=== PATIENT | male | born 1975 | race Caucasian/White ===

== ENCOUNTER 2016-08-11 16:59 | Emergency (ER) | payer OTHER ==
--- NOTE | 2016-08-11 17:24 | EDDOCDS ---
Nurse's Notes [facility] Name: Norbert Gutiérrez Age: 41 yrs Sex: Male : 1975 Arrival Date: 08/11/2016 Time: 16:59 Bed TR7 Private MD: No Pcp Diagnosis: Dysuria Presentation: 08/11 17:03 Presenting complaint: Patient states: Patient states that since yesterday it "turner js13 when I pee". Patient texting during triage. Adult Sepsis Screening: The patient does not have new or worsening altered mentation. Patient's respiratory rate is less than 22. Systolic blood pressure is greater than 100. Patient has a qSOFA score of 0- Negative Sepsis Screen. Suicide/Homicide risk assessment- the patient denies having any suicidal and/or homicidal ideations and does not present with any other emotional, behavioral or mental health complaints. Status: Patient is not a servicenow administrator or dependent. Transition of care: patient was not received from another setting of care. 17:03 Acuity: GERARD Level 4 js13 17:03 Method Of Arrival: Walkin/Carried/Asstd js13 Triage Assessment: 17:04 General: Appears in no apparent distress, Behavior is appropriate for age, cooperative. js13 Pain: Pain currently is 5 out of 10 on a pain scale. Pt Declines HIV testing. Neurological: Level of Consciousness is awake, alert. Respiratory: Airway is patent Respiratory effort is even, unlabored, Respiratory pattern is regular, symmetrical. : Reports burning with urination since 08/10. Derm: Skin is pink, warm & dry. Historical: - Allergies: PENICILLINS (Hives); - Home Meds: 1. none - PMHx: Diabetes - NIDDM: controlled; Sleep Apnea w/ CPAP; - PSHx: none; - Social history: Smoking status: Patient uses tobacco products, current every day smoker. No barriers to communication noted, The patient speaks fluent Greenlandic. - Family history: Not pertinent. - : The pt / caregiver states he / she is not on anticoagulants. Home medication list is obtained from the patient. - Exposure Risk Screening:: None identified. Screenin:05 Screening information is obtained from the patient. Fall risk: No risks identified. js13 Assistance ADL's: requires no assistance with activities of daily living. Abuse/DV Screen: The patient / caregiver reports he/she is: not in a situation that causes fear, pain or injury. Nutritional screening: No deficits noted. Advance Directives: There is no active DNR order. home support is adequate. Assessment: 17:22 General: Appears in no apparent distress. Neurological: Level of Consciousness is ld5 awake, alert. : Reports pain with urination. Vital Signs: 17:01 BP 134 / 79; Pulse 94; Resp 16; Temp 97.2(O); Pulse Ox 94% on R/A; Weight 74.84 kg; sew Height 5 ft. 5 in. (165.10 cm); Pain 5/10; 17:01 Body Mass Index 27.46 (74.84 kg, 165.10 cm) [facility] [place]: 17: Log In Time: August 11, 2016 at 16:56. [facility] [place] [place] Course: 17:00 Patient visited by Nanci Bradley. sew 17:00 Patient moved to Waiting sew 17:01 No Pcp is Private Physician. sew 17:02 Patient visited by Nanci Bradley. sew 17:02 Patient moved to Pre RCE sew 17:04 Triage Initiated js13 17:05 Patient visited by Juanita Verduzco RN. js13 17:05 The patient / caregiver is instructed regarding the plan of care and ED course. js13 17:05 No IV's were initiated during this patient's visit. No procedures done that require [facility] assistance. 17:06 Patient moved to Triage 1 js13 17:07 [facility] btw 17:07 Kristian Wood MD is Attending Physician. btw 17:07 Patient visited by Justin Jacobo PA. btw 17:16 GC & Chlamydia Amplification Sent. ld5 17:16 Urine Culture Sent. ld5 17:17 Urine collected. Clean catch specimen. Urine specimen sent to lab. ld5 17:21 Patient moved to TR7 ld5 17:23 Patient visited by Annmarie Putnam RN. ld5 Point of Care Testing: Urine Dip: 17:16 pH: 1.01; ; Specific [place]: 7; Ketones: Negative; Glucose: Negative; Protein: Trace; ld5 Leukocytes: Positive (++); Nitrite: Negative ; Blood: Non Hemolyzed Moderate; Bilirubin: Negative ; Urobilinogen: Normal Ranges: Order Results: There are currently no results for this order. Outcome: 17:16 Discharge ordered by Provider. btw 17:22 Discharge Assessment: Patient awake, alert and oriented x 3. No cognitive and/or ld5 functional deficits noted. Patient verbalized understanding of disposition instructions. patient administered narcotics - no. The following High Risk Discharge criteria are identified: None. Discharged to home ambulatory, with family. Condition: stable. Discharge instructions given to patient, Instructed on discharge instructions, follow up and referral plans. medication usage, Demonstrated understanding of instructions, medications, Pt was receptive of discharge instructions/ teaching. Prescriptions given X 1. No special radiology studies were completed. Property :Personal belongings accompany Pt. 17:23 Patient left the ED. ld5 Signatures: Justin Jacobo PA PA btw Annmarie Putnam,RN RN ld5 Juanita VerduzcoRN RN js13 Nanci Bradley NEREIDA
--- NOTE | 2016-08-11 17:24 | EDDOCDS ---
Physician Documentation [facility] Name: Norbert Gutiérrez Age: 41 yrs Sex: Male : 1975 Arrival Date: 08/11/2016 Time: 16:59 Bed TR7 Private MD: No Pcp Disposition: 08/11/16 17:16 Discharged to Home/Self Care. Impression: Dysuria. - Condition is Stable. - Discharge Instructions: Dysuria. - Prescriptions for Cipro 500 mg Oral Tablet - take 1 tablet by ORAL route every 12 hours; 14 tablet. - Medication Reconciliation, Local Pharmacy Hours form. - Follow up: Private Physician; When: Call to arrange an appointment; Reason: Further diagnostic work-up, Recheck today's complaints, Continuance of care. - Problem is new. - Symptoms are unchanged. Historical: - Allergies: PENICILLINS (Hives); - Home Meds: 1. none - PMHx: Diabetes - NIDDM: controlled; Sleep Apnea w/ CPAP; - PSHx: none; - Social history: Smoking status: Patient uses tobacco products, current every day smoker. No barriers to communication noted, The patient speaks fluent Estonian. - Family history: Not pertinent. - : The pt / caregiver states he / she is not on anticoagulants. Home medication list is obtained from the patient. - Exposure Risk Screening:: None identified. Vital Signs: 08/11 17:01 BP 134 / 79; Pulse 94; Resp 16; Temp 97.2(O); Pulse Ox 94% on R/A; Weight 74.84 kg / sew 164.99 lbs; Height 5 ft. 5 in. (165.10 cm); Pain 5/10; 17:01 Body Mass Index 27.46 (74.84 kg, 165.10 cm) sew MDM: 17:08 Urine Dip ordered. btw 17:09 GC & Chlamydia Amplification Ordered. EDMS 17:09 Urine Culture Ordered. EDDE Point of Care Testing: Urine Dip: 17:16 pH: 1.01; ; Specific [place]: 7; Ketones: Negative; Glucose: Negative; Protein: Trace; ld5 Leukocytes: Positive (++); Nitrite: Negative ; Blood: Non Hemolyzed Moderate; Bilirubin: Negative ; Urobilinogen: Normal Ranges: Signatures: Dispatcher [employer] EDDE Wolfenden, JustinROLANDO roa Laura,RN RN ld5 Juanita Verduzco,RN RN js13 MTDD
--- NOTE | 2016-08-15 09:30 | EDDOCDS ---
Physician Documentation [facility] Name: Norbert Gutiérrez Age: 41 yrs Sex: Male : 1975 Arrival Date: 08/11/2016 Time: 16:59 Bed TR7 Private MD: No Pcp Disposition: 08/11/16 17:16 Discharged to Home/Self Care. Impression: Dysuria. - Condition is Stable. - Discharge Instructions: Dysuria. - Prescriptions for Cipro 500 mg Oral Tablet - take 1 tablet by ORAL route every 12 hours; 14 tablet. - Medication Reconciliation, Local Pharmacy Hours form. - Follow up: Private Physician; When: Call to arrange an appointment; Reason: Further diagnostic work-up, Recheck today's complaints, Continuance of care. - Problem is new. - Symptoms are unchanged. Historical: - Allergies: PENICILLINS (Hives); - Home Meds: 1. none - PMHx: Diabetes - NIDDM: controlled; Sleep Apnea w/ CPAP; - PSHx: none; - Social history: Smoking status: Patient uses tobacco products, current every day smoker. No barriers to communication noted, The patient speaks fluent Beninese. - Family history: Not pertinent. - : The pt / caregiver states he / she is not on anticoagulants. Home medication list is obtained from the patient. - Exposure Risk Screening:: None identified. Vital Signs: 08/11 17:01 BP 134 / 79; Pulse 94; Resp 16; Temp 97.2(O); Pulse Ox 94% on R/A; Weight 74.84 kg / sew 164.99 lbs; Height 5 ft. 5 in. (165.10 cm); Pain 5/10; 17:01 Body Mass Index 27.46 (74.84 kg, 165.10 cm) sew MDM: 17:08 Urine Dip ordered. btw 17:09 GC & Chlamydia Amplification Ordered. EDMS 17:09 Urine Culture Ordered. EDMS 17:27 [facility] Payment Agreement was scanned into [employer] and attached to record. jp5 17:27 Financial registration complete. jp5 08/12 09:09 T-Sheet-- Draft Copy was scanned into [employer] and attached to record. [facility] Point of Care Testing: Urine Dip: 08/11 17:16 pH: 1.01; ; Specific [place]: 7; Ketones: Negative; Glucose: Negative; Protein: Trace; ld5 Leukocytes: Positive (++); Nitrite: Negative ; Blood: Non Hemolyzed Moderate; Bilirubin: Negative ; Urobilinogen: Normal Ranges: Signatures: Dispatcher [employer] Justin Cloud PA PA btw Dickerson, LauraRN RN ld5 Juanita VerduzcoRN RN js13 Sami Kent jp5 Nanci Flaherty The chart was reviewed and I authenticate all verbal orders and agree with the evaluation and treatment provided.Attachments: 17:27 [facility] Payment Agreement jp5 08/12 09:09 T-Sheet-- Draft Copy [facility] Chart Complete MTDD
--- NOTE | 2016-08-15 09:30 | EDDOCDS ---
Physician Documentation [facility] Name: Norbert Gutiérrez Age: 41 yrs Sex: Male : 1975 Arrival Date: 08/11/2016 Time: 16:59 Bed TR7 Private MD: No Pcp Disposition: 08/11/16 17:16 Discharged to Home/Self Care. Impression: Dysuria. - Condition is Stable. - Discharge Instructions: Dysuria. - Prescriptions for Cipro 500 mg Oral Tablet - take 1 tablet by ORAL route every 12 hours; 14 tablet. - Medication Reconciliation, Local Pharmacy Hours form. - Follow up: Private Physician; When: Call to arrange an appointment; Reason: Further diagnostic work-up, Recheck today's complaints, Continuance of care. - Problem is new. - Symptoms are unchanged. Historical: - Allergies: PENICILLINS (Hives); - Home Meds: 1. none - PMHx: Diabetes - NIDDM: controlled; Sleep Apnea w/ CPAP; - PSHx: none; - Social history: Smoking status: Patient uses tobacco products, current every day smoker. No barriers to communication noted, The patient speaks fluent Surinamese. - Family history: Not pertinent. - : The pt / caregiver states he / she is not on anticoagulants. Home medication list is obtained from the patient. - Exposure Risk Screening:: None identified. Vital Signs: 08/11 17:01 BP 134 / 79; Pulse 94; Resp 16; Temp 97.2(O); Pulse Ox 94% on R/A; Weight 74.84 kg / sew 164.99 lbs; Height 5 ft. 5 in. (165.10 cm); Pain 5/10; 17:01 Body Mass Index 27.46 (74.84 kg, 165.10 cm) sew MDM: 17:08 Urine Dip ordered. btw 17:09 GC & Chlamydia Amplification Ordered. EDMS 17:09 Urine Culture Ordered. EDMS 17:27 [facility] Payment Agreement was scanned into [employer] and attached to record. jp5 17:27 Financial registration complete. jp5 08/12 09:09 T-Sheet-- Draft Copy was scanned into [employer] and attached to record. [facility] Point of Care Testing: Urine Dip: 08/11 17:16 pH: 1.01; ; Specific [place]: 7; Ketones: Negative; Glucose: Negative; Protein: Trace; ld5 Leukocytes: Positive (++); Nitrite: Negative ; Blood: Non Hemolyzed Moderate; Bilirubin: Negative ; Urobilinogen: Normal Ranges: Signatures: Dispatcher [employer] Justin Cloud PA PA btw Dickerson, LauraRN RN ld5 Juanita VerduzcoRN RN js13 Sami Kent jp5 Nanci Flaherty The chart was reviewed and I authenticate all verbal orders and agree with the evaluation and treatment provided.Attachments: 17:27 [facility] Payment Agreement jp5 08/12 09:09 T-Sheet-- Draft Copy [facility] Chart Complete MTDD
--- NOTE | 2016-08-15 09:31 | EDDOCDS ---
Nurse's Notes [facility] Name: Norbert Gutiérrez Age: 41 yrs Sex: Male : 1975 Arrival Date: 08/11/2016 Time: 16:59 Bed TR7 Private MD: No Pcp Diagnosis: Dysuria Presentation: 08/11 17:03 Presenting complaint: Patient states: Patient states that since yesterday it "turner js13 when I pee". Patient texting during triage. Adult Sepsis Screening: The patient does not have new or worsening altered mentation. Patient's respiratory rate is less than 22. Systolic blood pressure is greater than 100. Patient has a qSOFA score of 0- Negative Sepsis Screen. Suicide/Homicide risk assessment- the patient denies having any suicidal and/or homicidal ideations and does not present with any other emotional, behavioral or mental health complaints. Status: Patient is not a quick service technician or dependent. Transition of care: patient was not received from another setting of care. 17:03 Acuity: GERARD Level 4 js13 17:03 Method Of Arrival: Walkin/Carried/Asstd js13 Triage Assessment: 17:04 General: Appears in no apparent distress, Behavior is appropriate for age, cooperative. js13 Pain: Pain currently is 5 out of 10 on a pain scale. Pt Declines HIV testing. Neurological: Level of Consciousness is awake, alert. Respiratory: Airway is patent Respiratory effort is even, unlabored, Respiratory pattern is regular, symmetrical. : Reports burning with urination since 08/10. Derm: Skin is pink, warm & dry. Historical: - Allergies: PENICILLINS (Hives); - Home Meds: 1. none - PMHx: Diabetes - NIDDM: controlled; Sleep Apnea w/ CPAP; - PSHx: none; - Social history: Smoking status: Patient uses tobacco products, current every day smoker. No barriers to communication noted, The patient speaks fluent Danish. - Family history: Not pertinent. - : The pt / caregiver states he / she is not on anticoagulants. Home medication list is obtained from the patient. - Exposure Risk Screening:: None identified. Screenin:05 Screening information is obtained from the patient. Fall risk: No risks identified. js13 Assistance ADL's: requires no assistance with activities of daily living. Abuse/DV Screen: The patient / caregiver reports he/she is: not in a situation that causes fear, pain or injury. Nutritional screening: No deficits noted. Advance Directives: There is no active DNR order. home support is adequate. Assessment: 17:22 General: Appears in no apparent distress. Neurological: Level of Consciousness is ld5 awake, alert. : Reports pain with urination. Vital Signs: 17:01 BP 134 / 79; Pulse 94; Resp 16; Temp 97.2(O); Pulse Ox 94% on R/A; Weight 74.84 kg; sew Height 5 ft. 5 in. (165.10 cm); Pain 5/10; 17:01 Body Mass Index 27.46 (74.84 kg, 165.10 cm) [facility] [place]: 17: Log In Time: August 11, 2016 at 16:56. [facility] [place] Course: 17:00 Patient visited by Nanci Bradley. sew 17:00 Patient moved to Waiting sew 17:01 No Pcp is Private Physician. sew 17:02 Patient visited by Nanci Bradley. sew 17:02 Patient moved to Pre RCE sew 17:04 Triage Initiated js13 17:05 Patient visited by Juanita Verduzco RN. js13 17:05 The patient / caregiver is instructed regarding the plan of care and ED course. js13 17:05 No IV's were initiated during this patient's visit. No procedures done that require [facility] assistance. 17:06 Patient moved to Triage 1 js13 17:07 Justin Jacobo PA is PHCP. btw 17:07 Kristian Wood MD is Attending Physician. btw 17:07 Patient visited by Justin Jacobo PA. btw 17:16 GC & Chlamydia Amplification Sent. ld5 17:16 Urine Culture Sent. ld5 17:17 Urine collected. Clean catch specimen. Urine specimen sent to lab. ld5 17:21 Patient moved to TR7 ld5 17:23 Patient visited by Annmarie Putnam RN. ld5 17:27 [facility] Payment Agreement was scanned into [employer] and attached to record. jp5 08/12 09:09 T-Sheet-- Draft Copy was scanned into [employer] and attached to record. [facility] Point of Care Testing: Urine Dip: 08/11 17:16 pH: 1.01; ; Specific [place]: 7; Ketones: Negative; Glucose: Negative; Protein: Trace; ld5 Leukocytes: Positive (++); Nitrite: Negative ; Blood: Non Hemolyzed Moderate; Bilirubin: Negative ; Urobilinogen: Normal Ranges: Order Results: Lab Order: Urine Culture; SPEC'M 08/11/16 17:10 Test: URINE CULTURE; Value: URINE CULTURE RESULT NO GROWTH; Status: F Lab Order: GC & Chlamydia Amplification; SPEC'M 08/11/16 17:10 Test: CHLAMYDIA DNA AMPLIFICATION; Value: NEGATIVE; Range: NEGATIVE; Status: F Test: GC DNA AMPLIFICATION; Value: NEGATIVE; Range: NEGATIVE; Status: F Outcome: 17:16 Discharge ordered by Provider. btw 17:22 Discharge Assessment: Patient awake, alert and oriented x 3. No cognitive and/or ld5 functional deficits noted. Patient verbalized understanding of disposition instructions. patient administered narcotics - no. The following High Risk Discharge criteria are identified: None. Discharged to home ambulatory, with family. Condition: stable. Discharge instructions given to patient, Instructed on discharge instructions, follow up and referral plans. medication usage, Demonstrated understanding of instructions, medications, Pt was receptive of discharge instructions/ teaching. Prescriptions given X 1. No special radiology studies were completed. Property :Personal belongings accompany Pt. 17:23 Patient left the ED. ld5 Signatures: Justin Jacobo PA PA btw Dickerson, Laura,RN RN ld5 Juanita VerduzcoRN RN js13 Kirk, Sami Ny Sarah seh Chart Complete MTDD
== END 2016-08-11 17:23 | disposition home or self-care (01) ==
LOC: M ED 16:59
DX: R30.0 Dysuria (principal); E11.9 Type 2 diabetes mellitus without complications; G47.30 Sleep apnea, unspecified; Z72.0 Tobacco use; Z88.0 Allergy status to penicillin

== ENCOUNTER 2016-08-22 20:52 | Emergency (ER) | payer OTHER ==
[2016-08-22] MEDS ORDERED: BACTRIM 160MG/800MG DS TAB As Ordered ONE (22:51)
--- NOTE | 2016-08-22 23:01 | EDDOCDS ---
Physician Documentation [facility] Name: Norbert Gutiérrez Age: 41 yrs Sex: Male : 1975 Arrival Date: 08/22/2016 Time: 20:52 Bed 13 Private MD: KARL MORRIS Disposition: 08/22/16 22:47 Discharged to Home/Self Care. Impression: Cutaneous abscess of right axilla. - Condition is Stable. - Discharge Instructions: Abscess. - Prescriptions for Bactrim DS 800- 160 mg Oral Tablet - take 2 tablet by ORAL route every 12 hours for 7 days; 28 tablet. - Medication Reconciliation, Local Pharmacy Hours form. - [facility]; When: Call to arrange an appointment; Reason: Continuance of care. - Problem is an ongoing problem. - Symptoms are unchanged. - Notes: warm compresses Historical: - Allergies: PENICILLINS (Hives); - Home Meds: 1. none - PMHx: Diabetes - NIDDM: controlled; Sleep Apnea w/ CPAP; - PSHx: none; - Social history: Smoking status: Patient uses tobacco products, heavy tobacco smoker. No barriers to communication noted, The patient speaks fluent Divehi, Speaks appropriately for age. - Family history: Not pertinent. - : The pt / caregiver states he / she is not on anticoagulants. Home medication list is obtained from the patient. - Exposure Risk Screening:: None identified. Vital Signs: 08/22 20:53 BP 159 / 85; Pulse 114; Resp 18 S; Temp 96.9(O); Pulse Ox 95% on R/A; Weight 88.45 kg / gr2 195 lbs (R); Height 5 ft. 5 in. (165.10 cm) (R); Pain 4/10; 22:59 BP 148 / 72; Pulse 78; Resp 20; Temp 97.2(O); Pulse Ox 96% on R/A; Pain 4/10; tm5 20:53 Body Mass Index 32.45 (88.45 kg, 165.10 cm) gr2 MDM: 22:43 Trimethoprim-Sulfamethoxazole (MRSA dose) 160 mg-800 mg (DS) 2 tabs PO once ordered. ke Administered Medications: 22:56 Drug: Trimethoprim-Sulfamethoxazole (MRSA dose) 2 tabs [sulfamethoxazole 800 tm5 mg-trimethoprim 160 mg tablet (2 tabs)] Route: PO; 22:56 Follow up: Response: Pt left department before re-evaluation is appropriate tm5 Signatures: Melo Mora, YARA RN Greg Betancourt FNP FNP ke Matice, Tonya, RN RN tm5 MTDD
--- NOTE | 2016-08-22 23:01 | EDDOCDS ---
Nurse's Notes [facility] Name: Norbert Gutiérrez Age: 41 yrs Sex: Male : 1975 Arrival Date: 08/22/2016 Time: 20:52 Bed 13 Private MD: KARL MORRIS Diagnosis: Cutaneous abscess of right axilla Presentation: 08/22 21:04 Presenting complaint: Patient states: he has bumps in his right axilla since last cz night. Adult Sepsis Screening: The patient does not have new or worsening altered mentation. Patient's respiratory rate is less than 22. Systolic blood pressure is greater than 100. Patient has a qSOFA score of 0- Negative Sepsis Screen. Suicide/Homicide risk assessment- the patient denies having any suicidal and/or homicidal ideations and does not present with any other emotional, behavioral or mental health complaints. Status: Patient is not a administrative services officer or dependent. Transition of care: patient was not received from another setting of care. 21:04 Acuity: GERARD Level 5 cz 21:04 Method Of Arrival: Walkin/Carried/Asstd cz Triage Assessment: 21:06 General: Appears in no apparent distress. Pain: Denies pain. HIV screening NA for this cz visit Offered previously. Historical: - Allergies: PENICILLINS (Hives); - Home Meds: 1. none - PMHx: Diabetes - NIDDM: controlled; Sleep Apnea w/ CPAP; - PSHx: none; - Social history: Smoking status: Patient uses tobacco products, heavy tobacco smoker. No barriers to communication noted, The patient speaks fluent Vietnamese, Speaks appropriately for age. - Family history: Not pertinent. - : The pt / caregiver states he / she is not on anticoagulants. Home medication list is obtained from the patient. - Exposure Risk Screening:: None identified. Screenin:40 Screening information is obtained from the patient. Fall risk: No risks identified. tm5 Assistance ADL's: requires no assistance with activities of daily living. Abuse/DV Screen: The patient / caregiver reports he/she is: not in a situation that causes fear, pain or injury. Nutritional screening: No deficits noted. Advance Directives: Currently, there is no health care proxy. There is no active DNR order. home support is adequate. Assessment: 22:40 General: Appears in no apparent distress, Behavior is appropriate for age, cooperative. tm5 Pain: Location: right axillary area Pain currently is 5 out of 10 on a pain scale. Quality of pain is described as throbbing. 22:40 Respiratory: Airway is patent Respiratory effort is even, unlabored, Respiratory tm5 pattern is regular, symmetrical. Derm: Skin is pink, warm & dry. normal, Abscess located on right axilla is dime sized, has purulent drainage, has foul odor, is hot to touch, is red, pt was educated on applying warm compresses to abscessed areas. Vital Signs: 20:53 BP 159 / 85; Pulse 114; Resp 18 S; Temp 96.9(O); Pulse Ox 95% on R/A; Weight 88.45 kg gr2 (R); Height 5 ft. 5 in. (165.10 cm) (R); Pain 4/10; 22:59 BP 148 / 72; Pulse 78; Resp 20; Temp 97.2(O); Pulse Ox 96% on R/A; Pain 4/10; tm5 20:53 Body Mass Index 32.45 (88.45 kg, 165.10 cm) gr2 Vitals: 20:53 Log In Time: August 22, 2016 at 20:53. gr2 ED Course: 20:53 Patient visited by Jennifer Lyons. gr2 20:53 KARL MORRIS is Private Physician. gr2 20:53 Patient moved to Waiting gr2 20:54 Patient visited by Jennifer Lyons. gr2 20:54 Patient moved to Pre RCE gr2 21:05 Triage Initiated cz 22:32 Patient moved to 13 sls1 22:33 Patient visited by Holly Leonardo, NICHOL. janet 22:36 [facility] ke 22:36 Patient visited by Greg Barahona FNP. ke 22:36 Patient visited by Greg Barahona FNP. ke 22:40 The patient / caregiver is instructed regarding the plan of care and ED course. tm5 22:40 No IV's were initiated during this patient's visit. No procedures done that require tm5 assistance. 22:46 [facility] is Referral Physician. ke Administered Medications: 22:56 Drug: Trimethoprim-Sulfamethoxazole (MRSA dose) 2 tabs [sulfamethoxazole 800 tm5 mg-trimethoprim 160 mg tablet (2 tabs)] Route: PO; 22:56 Follow up: Response: Pt left department before re-evaluation is appropriate tm5 Order Results: There are currently no results for this order. Outcome: 22:40 Discharge Assessment: Patient awake, alert and oriented x 3. No cognitive and/or tm5 functional deficits noted. Patient verbalized understanding of disposition instructions. patient administered narcotics - no. The following High Risk Discharge criteria are identified: None. Discharged to home ambulatory, with significant other. Condition: good Condition: stable. Discharge instructions given to patient, Instructed on discharge instructions, follow up and referral plans. medication usage, Demonstrated understanding of instructions, medications, Pt was receptive of discharge instructions/ teaching. Prescriptions given X 1. No special radiology studies were completed. Property :Personal belongings accompany Pt. 22:47 Discharge ordered by Provider. ke 23:00 Patient left the ED. tm5 Signatures: Melo Mora, RN RN cz Greg Barahona, POSTAL SUPERINTENDENT POSTAL SUPERINTENDENT Holly Allen, STEAM SHOVEL OILER STEAM SHOVEL OILER Ngozi Contreras RN RN [facility] Jennifer Lyons gr2 Teresa Donohue RN RN tm5 NEREIDA
--- NOTE | 2016-08-25 00:01 | EDDOCDS ---
Nurse's Notes [facility] Name: Norbert Gutiérrez Age: 41 yrs Sex: Male : 1975 Arrival Date: 08/22/2016 Time: 20:52 Bed 13 Private MD: KARL MORRIS Diagnosis: Cutaneous abscess of right axilla Presentation: 08/22 21:04 Presenting complaint: Patient states: he has bumps in his right axilla since last cz night. Adult Sepsis Screening: The patient does not have new or worsening altered mentation. Patient's respiratory rate is less than 22. Systolic blood pressure is greater than 100. Patient has a qSOFA score of 0- Negative Sepsis Screen. Suicide/Homicide risk assessment- the patient denies having any suicidal and/or homicidal ideations and does not present with any other emotional, behavioral or mental health complaints. Status: Patient is not a senior field service engineer or dependent. Transition of care: patient was not received from another setting of care. 21:04 Acuity: GERARD Level 5 cz 21:04 Method Of Arrival: Walkin/Carried/Asstd cz Triage Assessment: 21:06 General: Appears in no apparent distress. Pain: Denies pain. HIV screening NA for this cz visit Offered previously. Historical: - Allergies: PENICILLINS (Hives); - Home Meds: 1. none - PMHx: Diabetes - NIDDM: controlled; Sleep Apnea w/ CPAP; - PSHx: none; - Social history: Smoking status: Patient uses tobacco products, heavy tobacco smoker. No barriers to communication noted, The patient speaks fluent Romansh, Speaks appropriately for age. - Family history: Not pertinent. - : The pt / caregiver states he / she is not on anticoagulants. Home medication list is obtained from the patient. - Exposure Risk Screening:: None identified. Screenin:40 Screening information is obtained from the patient. Fall risk: No risks identified. tm5 Assistance ADL's: requires no assistance with activities of daily living. Abuse/DV Screen: The patient / caregiver reports he/she is: not in a situation that causes fear, pain or injury. Nutritional screening: No deficits noted. Advance Directives: Currently, there is no health care proxy. There is no active DNR order. home support is adequate. Assessment: 22:40 General: Appears in no apparent distress, Behavior is appropriate for age, cooperative. tm5 Pain: Location: right axillary area Pain currently is 5 out of 10 on a pain scale. Quality of pain is described as throbbing. 22:40 Respiratory: Airway is patent Respiratory effort is even, unlabored, Respiratory tm5 pattern is regular, symmetrical. Derm: Skin is pink, warm & dry. normal, Abscess located on right axilla is dime sized, has purulent drainage, has foul odor, is hot to touch, is red, pt was educated on applying warm compresses to abscessed areas. Vital Signs: 20:53 BP 159 / 85; Pulse 114; Resp 18 S; Temp 96.9(O); Pulse Ox 95% on R/A; Weight 88.45 kg gr2 (R); Height 5 ft. 5 in. (165.10 cm) (R); Pain 4/10; 22:59 BP 148 / 72; Pulse 78; Resp 20; Temp 97.2(O); Pulse Ox 96% on R/A; Pain 4/10; tm5 20:53 Body Mass Index 32.45 (88.45 kg, 165.10 cm) gr2 Vitals: 20:53 Log In Time: August 22, 2016 at 20:53. gr2 ED Course: 20:53 Patient visited by Jennifer Lyons. gr2 20:53 KARL MORRIS is Private Physician. gr2 20:53 Patient moved to Waiting gr2 20:54 Patient visited by Jennifer Lyons. gr2 20:54 Patient moved to Pre RCE gr2 21:05 Triage Initiated cz 22:32 Patient moved to 13 sls1 22:33 Patient visited by Holly Leonardo, NICHOL. janet 22:36 [facility] ke 22:36 Patient visited by Greg Barahona FNP. ke 22:36 Patient visited by Greg Barahona FNP. ke 22:40 The patient / caregiver is instructed regarding the plan of care and ED course. tm5 22:40 No IV's were initiated during this patient's visit. No procedures done that require tm5 assistance. 22:46 [facility] is Referral Physician. ke 08/23 11:59 T-Sheet-- Draft Copy was scanned into [employer] and attached to record. gb Administered Medications: 08/22 22:56 Drug: Trimethoprim-Sulfamethoxazole (MRSA dose) 2 tabs [sulfamethoxazole 800 tm5 mg-trimethoprim 160 mg tablet (2 tabs)] Route: PO; 22:56 Follow up: Response: Pt left department before re-evaluation is appropriate tm5 Order Results: There are currently no results for this order. Outcome: 22:40 Discharge Assessment: Patient awake, alert and oriented x 3. No cognitive and/or tm5 functional deficits noted. Patient verbalized understanding of disposition instructions. patient administered narcotics - no. The following High Risk Discharge criteria are identified: None. Discharged to home ambulatory, with significant other. Condition: good Condition: stable. Discharge instructions given to patient, Instructed on discharge instructions, follow up and referral plans. medication usage, Demonstrated understanding of instructions, medications, Pt was receptive of discharge instructions/ teaching. Prescriptions given X 1. No special radiology studies were completed. Property :Personal belongings accompany Pt. 22:47 Discharge ordered by Provider. ke 23:00 Patient left the ED. tm5 Signatures: Melo Mora, RN RN Shaila Angeles, Reg Reg gb Greg Barahona, REVENUE STAMP CLERK REVENUE STAMP CLERK Holly Allen, COTTON WEIGHER COTTON WEIGHER Ngozi Contreras RN RN [facility] Jennifer Lyons gr2 Teresa Donohue RN RN tm5 Chart Complete [facility]
--- NOTE | 2016-08-25 00:01 | EDDOCDS ---
Physician Documentation [facility] Name: Norbert Gutiérrez Age: 41 yrs Sex: Male : 1975 Arrival Date: 08/22/2016 Time: 20:52 Bed 13 Private MD: KARL MORRIS Disposition: 08/22/16 22:47 Discharged to Home/Self Care. Impression: Cutaneous abscess of right axilla. - Condition is Stable. - Discharge Instructions: Abscess. - Prescriptions for Bactrim DS 800- 160 mg Oral Tablet - take 2 tablet by ORAL route every 12 hours for 7 days; 28 tablet. - Medication Reconciliation, Local Pharmacy Hours form. - Follow up: [facility]; When: Call to arrange an appointment; Reason: Continuance of care. - Problem is an ongoing problem. - Symptoms are unchanged. - Notes: warm compresses Historical: - Allergies: PENICILLINS (Hives); - Home Meds: 1. none - PMHx: Diabetes - NIDDM: controlled; Sleep Apnea w/ CPAP; - PSHx: none; - Social history: Smoking status: Patient uses tobacco products, heavy tobacco smoker. No barriers to communication noted, The patient speaks fluent Yakut, Speaks appropriately for age. - Family history: Not pertinent. - : The pt / caregiver states he / she is not on anticoagulants. Home medication list is obtained from the patient. - Exposure Risk Screening:: None identified. Vital Signs: 08/22 20:53 BP 159 / 85; Pulse 114; Resp 18 S; Temp 96.9(O); Pulse Ox 95% on R/A; Weight 88.45 kg / gr2 195 lbs (R); Height 5 ft. 5 in. (165.10 cm) (R); Pain 4/10; 22:59 BP 148 / 72; Pulse 78; Resp 20; Temp 97.2(O); Pulse Ox 96% on R/A; Pain 4/10; tm5 20:53 Body Mass Index 32.45 (88.45 kg, 165.10 cm) gr2 MDM: 22:43 Trimethoprim-Sulfamethoxazole (MRSA dose) 160 mg-800 mg (DS) 2 tabs PO once ordered. ke 08/23 11:59 T-Sheet-- Draft Copy was scanned into [employer] and attached to record. gb Administered Medications: 08/22 22:56 Drug: Trimethoprim-Sulfamethoxazole (MRSA dose) 2 tabs [sulfamethoxazole 800 tm5 mg-trimethoprim 160 mg tablet (2 tabs)] Route: PO; 22:56 Follow up: Response: Pt left department before re-evaluation is appropriate tm5 Signatures: Melo Mora, RN RN Shaila Angeles, Reg Reg Greg Abdi FNP FNP ke Matice, Tonya, RN RN tm5 The chart was reviewed and I authenticate all verbal orders and agree with the evaluation and treatment provided.Attachments: 08/23 11:59 T-Sheet-- Draft Copy gb Chart Complete MTDD
--- NOTE | 2016-08-25 00:01 | EDDOCDS ---
Physician Documentation [facility] Name: Norbert Gutiérrez Age: 41 yrs Sex: Male : 1975 Arrival Date: 08/22/2016 Time: 20:52 Bed 13 Private MD: KARL MORRIS Disposition: 08/22/16 22:47 Discharged to Home/Self Care. Impression: Cutaneous abscess of right axilla. - Condition is Stable. - Discharge Instructions: Abscess. - Prescriptions for Bactrim DS 800- 160 mg Oral Tablet - take 2 tablet by ORAL route every 12 hours for 7 days; 28 tablet. - Medication Reconciliation, Local Pharmacy Hours form. - Follow up: [facility]; When: Call to arrange an appointment; Reason: Continuance of care. - Problem is an ongoing problem. - Symptoms are unchanged. - Notes: warm compresses Historical: - Allergies: PENICILLINS (Hives); - Home Meds: 1. none - PMHx: Diabetes - NIDDM: controlled; Sleep Apnea w/ CPAP; - PSHx: none; - Social history: Smoking status: Patient uses tobacco products, heavy tobacco smoker. No barriers to communication noted, The patient speaks fluent Lao, Speaks appropriately for age. - Family history: Not pertinent. - : The pt / caregiver states he / she is not on anticoagulants. Home medication list is obtained from the patient. - Exposure Risk Screening:: None identified. Vital Signs: 08/22 20:53 BP 159 / 85; Pulse 114; Resp 18 S; Temp 96.9(O); Pulse Ox 95% on R/A; Weight 88.45 kg / gr2 195 lbs (R); Height 5 ft. 5 in. (165.10 cm) (R); Pain 4/10; 22:59 BP 148 / 72; Pulse 78; Resp 20; Temp 97.2(O); Pulse Ox 96% on R/A; Pain 4/10; tm5 20:53 Body Mass Index 32.45 (88.45 kg, 165.10 cm) gr2 MDM: 22:43 Trimethoprim-Sulfamethoxazole (MRSA dose) 160 mg-800 mg (DS) 2 tabs PO once ordered. ke 08/23 11:59 T-Sheet-- Draft Copy was scanned into [employer] and attached to record. gb Administered Medications: 08/22 22:56 Drug: Trimethoprim-Sulfamethoxazole (MRSA dose) 2 tabs [sulfamethoxazole 800 tm5 mg-trimethoprim 160 mg tablet (2 tabs)] Route: PO; 22:56 Follow up: Response: Pt left department before re-evaluation is appropriate tm5 Signatures: Melo Mora, RN RN Shaila Angeles, Reg Reg Greg Abdi FNP FNP ke Matice, Tonya, RN RN tm5 The chart was reviewed and I authenticate all verbal orders and agree with the evaluation and treatment provided.Attachments: 08/23 11:59 T-Sheet-- Draft Copy gb Chart Complete MTDD
== END 2016-08-22 23:00 | disposition home or self-care (01) ==
LOC: M ED 20:52
DX: L02.411 Cutaneous abscess of right axilla (principal); E11.9 Type 2 diabetes mellitus without complications; G47.30 Sleep apnea, unspecified; F17.210 Nicotine dependence, cigarettes, uncomplicated; Z88.0 Allergy status to penicillin

== ENCOUNTER 2016-10-02 22:36 | Emergency (ER) | payer OTHER ==
--- NOTE | 2016-10-03 01:02 | EDDOCDS ---
Nurse's Notes [facility] Name: Norbert Gutiérrez Age: 41 yrs Sex: Male : 1975 Arrival Date: 10/02/2016 Time: 22:36 Bed I8 / 16 Private MD: Diagnosis: Pain in left arm Presentation: 10/02 22:41 Presenting complaint: Patient states: Pt reports pain in left arm that began today, and lf1 is described as throbbing 6/10. Pt states he is not sure if he injured his arm, denies shortness of breath, chest pain, nausea and dizziness. Adult Sepsis Screening: The patient does not have new or worsening altered mentation. Patient's respiratory rate is less than 22. Systolic blood pressure is greater than 100. Patient has a qSOFA score of 0- Negative Sepsis Screen. Suicide/Homicide risk assessment- the patient denies having any suicidal and/or homicidal ideations and does not present with any other emotional, behavioral or mental health complaints. Status: Patient is not a road service locksmith or dependent. Transition of care: patient was not received from another setting of care. 22:41 Acuity: GERARD Level 4 lf1 22:41 Method Of Arrival: Walkin/Carried/Asstd lf1 Triage Assessment: 22:45 General: Appears in no apparent distress, Behavior is cooperative. Pain: Location: left lf1 arm Pain currently is 6 out of 10 on a pain scale. Neurological: Level of Consciousness is awake, alert. Respiratory: Respiratory effort is even, unlabored. GI: Denies nausea, vomiting. Derm: Skin is normal. Injury Description: No known injury. Historical: - Allergies: PENICILLINS (Hives); - Home Meds: 1. none - PMHx: Diabetes - NIDDM: controlled; Sleep Apnea w/ CPAP; - PSHx: cyst removed from left arm; - Social history: Smoking status: Patient uses tobacco products, current every day smoker. No barriers to communication noted, The patient speaks fluent Cook Islander, Speaks appropriately for age. - Family history: Not pertinent. - : The pt / caregiver states he / she is not on anticoagulants. Note Pt reports he is no longer taking his meds, does not use his CPAP, does not regularly check his blood sugar. - Exposure Risk Screening:: None identified. Screenin:56 Screening information is obtained from the patient. Fall risk: No risks identified. cz Assistance ADL's: requires no assistance with activities of daily living. Abuse/DV Screen: The patient / caregiver reports he/she is: not in a situation that causes fear, pain or injury. Nutritional screening: No deficits noted. Advance Directives: Currently, there is no health care proxy. There is no active DNR order. There is no living will. There is no Power of Supervisor [employer]. Advance directive information has not previously been placed in an [facility] medical record. Further advance directive information is declined. home support is adequate. Assessment: 23:56 General: alert male with stated left arm pain CSM intact pt denies any injury. cz Vital Signs: 22:37 BP 159 / 91; Pulse 104; Resp 18; Temp 98.0(O); Pulse Ox 100% on R/A; Weight 88.18 kg lr2 (M); Height 5 ft. 5 in. (165.10 cm) (R); Pain 6/10; 22:37 Body Mass Index 32.35 (88.18 kg, 165.10 cm) lr2 Vitals: 22:37 Log In Time: October 02, 2016 at 22:36. lr2 ED Course: 22:37 Patient visited by Annmarie Coronado. lr2 22:37 Patient moved to Waiting lr2 22:39 Patient moved to Pre RCE lr2 22:44 Triage Initiated lf1 22:52 EKG done. (by ED staff). Reviewed by Allen Arana MD. ar3 22:54 Patient visited by Brea Valencia PCA. ar3 23:54 Patient moved to Triage 3 cz 23:56 The patient / caregiver is instructed regarding the plan of care and ED course. cz 10/03 00:20 Tyler Soliz RPA-C is PHCP. ck7 00:20 Edwin Walsh DO is Attending Physician. ck7 00:20 Patient visited by Tyler Soliz RPA-C. ck7 00:32 Patient moved to I8 cz 00:35 Andrea Kirkpatrick,YARA is Primary Nurse. mgs Order Results: There are currently no results for this order. Outcome: 00:52 Patient left against medical advice. ck7 00:54 Discharge Assessment: Patient awake, alert and oriented x 3. No cognitive and/or mgs functional deficits noted. Patient verbalized understanding of disposition instructions. patient administered narcotics - no. The following High Risk Discharge criteria are identified: None. The patient is leaving AMA: AMA form signed. Condition: unchanged. No special radiology studies were completed. Property :Personal belongings accompany Pt. 00:56 The patient is leaving AMA: Notification of AMA status is made to the charge nurse, the s healthcare social worker, the ED attending physician, Other Jaret ROD and Dinesh Soliz PA. 01:02 Patient left the ED. s Signatures: Melo Mora, RN RN cz Radha Aldana,RN RN lf1 Brea Valencia, TINWARE LITHOGRAPH PRESS OPERATOR TINWARE LITHOGRAPH PRESS OPERATOR ar3 Tyler Soliz, CARMINA-C RPA-Cck7 Andrea Kirkpatrick,RN RN Annmarie Tamez2 MTDD
--- NOTE | 2016-10-03 01:02 | EDDOCDS ---
Physician Documentation [facility] Name: Norbert Gutiérrez Age: 41 yrs Sex: Male : 1975 Arrival Date: 10/02/2016 Time: 22:36 Bed I8 / 16 Private MD: Disposition: 10/03/16 00:52 Patient has left against medical advice. Impression: Pain in left arm. - Patients states they are going to Home/Self Care. - Condition is Stable. - Discharge Instructions: Musculoskeletal Pain. Medication Reconciliation, Local Pharmacy Hours form. Follow up: Private Physician; When: Tomorrow; Reason: Recheck today's complaints, Continuance of care. - Problem is new. - Symptoms are unchanged. - Notes: FOLLOW UP WITH YOUR DOCTOR TOMORROW, RETURN TO THE ER IF THE SYMPTOMS WORSEN OR BECOME CONCERNING Historical: - Allergies: PENICILLINS (Hives); - Home Meds: 1. none - PMHx: Diabetes - NIDDM: controlled; Sleep Apnea w/ CPAP; - PSHx: cyst removed from left arm; - Social history: Smoking status: Patient uses tobacco products, current every day smoker. No barriers to communication noted, The patient speaks fluent Divehi, Speaks appropriately for age. - Family history: Not pertinent. - : The pt / caregiver states he / she is not on anticoagulants. Note Pt reports he is no longer taking his meds, does not use his CPAP, does not regularly check his blood sugar. - Exposure Risk Screening:: None identified. Vital Signs: 10/02 22:37 BP 159 / 91; Pulse 104; Resp 18; Temp 98.0(O); Pulse Ox 100% on R/A; Weight 88.18 kg / lr2 194.4 lbs (M); Height 5 ft. 5 in. (165.10 cm) (R); Pain 6/10; 22:37 Body Mass Index 32.35 (88.18 kg, 165.10 cm) lr2 MDM: 22:49 ECG WITH READING ER PHYS+CARDIAG ordered. EDMS 10/03 00:29 IV Saline Lock ordered. ck7 00:29 NS 0.9% 1000 ml IV at bolus once ordered. ck7 00:29 ketorolac 30 mg IVP once ordered. ck7 00:30 CBC with Diff Ordered. EDMS 00:30 MED Profile Ordered. EDMS 00:30 Cardiac Marker Panel Ordered. EDMS 00:30 Pt & Aptt Ordered. EDMS 00:30 Chest, 2 View (pa\E\lat) Ordered. EDMS 00:30 US Upper Extremity R/O DVT Ordered. EDMS Signatures: Dispatcher [employer] EDMS Melo Mora, RN RN Radha Wynn,RN RN lf1 Tyler Soliz, RPA-C RPA-Cck7 Andrea KirkpatrickRN RN mgs MTDD
--- NOTE | 2016-10-04 10:09 | ECGEPIP ---
Stationary ECG Study [facility] - ED Test Date: 2016-10-02 Pat Name: RUSLAN GUERRERO Department: Room: - Gender: M Mr Teacher: reji : 1975 Requested By: MIGUEL Sullivan PA-C Order Number: [id number] Reading MD: Allen Arana Measurements Intervals [place] Rate: 89 P: 76 IN: 126 QRS: 61 QRSD: 95 T: 51 QT: 317 QTc: 386 Interpretive Statements SINUS RHYTHM POSSIBLE LAE Electronically Signed On 10-04-2016 10:09:24 EST by Allen Arana
--- NOTE | 2016-10-05 02:03 | EDDOCDS ---
Physician Documentation [facility] Name: Norbert Gutiérrez Age: 41 yrs Sex: Male : 1975 Arrival Date: 10/02/2016 Time: 22:36 Bed I8 / 16 Private MD: Disposition: 10/03/16 00:52 Patient has left against medical advice. Impression: Pain in left arm. - Patients states they are going to Home/Self Care. - Condition is Stable. - Discharge Instructions: Musculoskeletal Pain. Medication Reconciliation, Local Pharmacy Hours form. Follow up: Private Physician; When: Tomorrow; Reason: Recheck today's complaints, Continuance of care. - Problem is new. - Symptoms are unchanged. - Notes: FOLLOW UP WITH YOUR DOCTOR TOMORROW, RETURN TO THE ER IF THE SYMPTOMS WORSEN OR BECOME CONCERNING Historical: - Allergies: PENICILLINS (Hives); - Home Meds: 1. none - PMHx: Diabetes - NIDDM: controlled; Sleep Apnea w/ CPAP; - PSHx: cyst removed from left arm; - Social history: Smoking status: Patient uses tobacco products, current every day smoker. No barriers to communication noted, The patient speaks fluent Occitan, Speaks appropriately for age. - Family history: Not pertinent. - : The pt / caregiver states he / she is not on anticoagulants. Note Pt reports he is no longer taking his meds, does not use his CPAP, does not regularly check his blood sugar. - Exposure Risk Screening:: None identified. Vital Signs: 10/02 22:37 BP 159 / 91; Pulse 104; Resp 18; Temp 98.0(O); Pulse Ox 100% on R/A; Weight 88.18 kg / lr2 194.4 lbs (M); Height 5 ft. 5 in. (165.10 cm) (R); Pain 6/10; 22:37 Body Mass Index 32.35 (88.18 kg, 165.10 cm) lr2 MDM: 22:49 ECG WITH READING ER PHYS+CARDIAG ordered. EDMS 10/03 00:29 IV Saline Lock ordered. ck7 00:29 NS 0.9% 1000 ml IV at bolus once ordered. ck7 00:29 ketorolac 30 mg IVP once ordered. ck7 00:30 CBC with Diff Ordered. EDMS 00:30 MED Profile Ordered. EDMS 00:30 Cardiac Marker Panel Ordered. EDMS 00:30 Pt & Aptt Ordered. EDMS 00:30 Chest, 2 View (pa\E\lat) Ordered. EDMS 00:30 US Upper Extremity R/O DVT Ordered. EDMS 01:52 Financial registration complete. [facility] Signatures: Dispatcher [employer] EDWA Melo Mora, RN RN Radha WynnRN RN lf1 Tyler Soliz, RPA-C RPA-Cck7 Preethi Valenzuela [facility] Andrea Kirkpatrick,RN RN mgs Chart Complete [facility]
--- NOTE | 2016-10-05 02:03 | EDDOCDS ---
Physician Documentation [facility] Name: Norbert Gutiérrez Age: 41 yrs Sex: Male : 1975 Arrival Date: 10/02/2016 Time: 22:36 Bed I8 / 16 Private MD: Disposition: 10/03/16 00:52 Patient has left against medical advice. Impression: Pain in left arm. - Patients states they are going to Home/Self Care. - Condition is Stable. - Discharge Instructions: Musculoskeletal Pain. Medication Reconciliation, Local Pharmacy Hours form. Follow up: Private Physician; When: Tomorrow; Reason: Recheck today's complaints, Continuance of care. - Problem is new. - Symptoms are unchanged. - Notes: FOLLOW UP WITH YOUR DOCTOR TOMORROW, RETURN TO THE ER IF THE SYMPTOMS WORSEN OR BECOME CONCERNING Historical: - Allergies: PENICILLINS (Hives); - Home Meds: 1. none - PMHx: Diabetes - NIDDM: controlled; Sleep Apnea w/ CPAP; - PSHx: cyst removed from left arm; - Social history: Smoking status: Patient uses tobacco products, current every day smoker. No barriers to communication noted, The patient speaks fluent Mongolian, Speaks appropriately for age. - Family history: Not pertinent. - : The pt / caregiver states he / she is not on anticoagulants. Note Pt reports he is no longer taking his meds, does not use his CPAP, does not regularly check his blood sugar. - Exposure Risk Screening:: None identified. Vital Signs: 10/02 22:37 BP 159 / 91; Pulse 104; Resp 18; Temp 98.0(O); Pulse Ox 100% on R/A; Weight 88.18 kg / lr2 194.4 lbs (M); Height 5 ft. 5 in. (165.10 cm) (R); Pain 6/10; 22:37 Body Mass Index 32.35 (88.18 kg, 165.10 cm) lr2 MDM: 22:49 ECG WITH READING ER PHYS+CARDIAG ordered. EDMS 10/03 00:29 IV Saline Lock ordered. ck7 00:29 NS 0.9% 1000 ml IV at bolus once ordered. ck7 00:29 ketorolac 30 mg IVP once ordered. ck7 00:30 CBC with Diff Ordered. EDMS 00:30 MED Profile Ordered. EDMS 00:30 Cardiac Marker Panel Ordered. EDMS 00:30 Pt & Aptt Ordered. EDMS 00:30 Chest, 2 View (pa\E\lat) Ordered. EDMS 00:30 US Upper Extremity R/O DVT Ordered. EDMS 01:52 Financial registration complete. [facility] Signatures: Dispatcher [employer] EDWI Melo Mora, RN RN Radha WynnRN RN lf1 Tyler Soliz, RPA-C RPA-Cck7 Preethi Valenzuela [facility] Andrea Kirkpatrick,RN RN mgs Chart Complete [facility]
--- NOTE | 2016-10-05 02:03 | EDDOCDS ---
Nurse's Notes [facility] Name: Norbert Guerrero Age: 41 yrs Sex: Male : 1975 Arrival Date: 10/02/2016 Time: 22:36 Bed I8 / 16 Private MD: Diagnosis: Pain in left arm Presentation: 10/02 22:41 Presenting complaint: Patient states: Pt reports pain in left arm that began today, and lf1 is described as throbbing 6/10. Pt states he is not sure if he injured his arm, denies shortness of breath, chest pain, nausea and dizziness. Adult Sepsis Screening: The patient does not have new or worsening altered mentation. Patient's respiratory rate is less than 22. Systolic blood pressure is greater than 100. Patient has a qSOFA score of 0- Negative Sepsis Screen. Suicide/Homicide risk assessment- the patient denies having any suicidal and/or homicidal ideations and does not present with any other emotional, behavioral or mental health complaints. 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 Transition of care: patient was not received from another setting of care. 22:41 Acuity: GERARD Level 4 lf1 22:41 Method Of Arrival: Walkin/Carried/Asstd lf1 Triage Assessment: 22:45 General: Appears in no apparent distress, Behavior is cooperative. Pain: Location: left lf1 arm Pain currently is 6 out of 10 on a pain scale. Neurological: Level of Consciousness is awake, alert. Respiratory: Respiratory effort is even, unlabored. GI: Denies nausea, vomiting. Derm: Skin is normal. Injury Description: No known injury. Historical: - Allergies: PENICILLINS (Hives); - Home Meds: 1. none - PMHx: Diabetes - NIDDM: controlled; Sleep Apnea w/ CPAP; - PSHx: cyst removed from left arm; - Social history: Smoking status: Patient uses tobacco products, current every day smoker. No barriers to communication noted, The patient speaks fluent South Korean, Speaks appropriately for age. - Family history: Not pertinent. - : The pt / caregiver states he / she is not on anticoagulants. Note Pt reports he is no longer taking his meds, does not use his CPAP, does not regularly check his blood sugar. - Exposure Risk Screening:: None identified. Screenin:56 Screening information is obtained from the patient. Fall risk: No risks identified. cz Assistance ADL's: requires no assistance with activities of daily living. Abuse/DV Screen: The patient / caregiver reports he/she is: not in a situation that causes fear, pain or injury. Nutritional screening: No deficits noted. Advance Directives: Currently, there is no health care proxy. There is no active DNR order. There is no living will. There is no Power of Mine Captain. Advance directive information has not previously been placed in an [facility] medical record. Further advance directive information is declined. home support is adequate. Assessment: 23:56 General: alert male with stated left arm pain CSM intact pt denies any injury. cz Vital Signs: 22:37 BP 159 / 91; Pulse 104; Resp 18; Temp 98.0(O); Pulse Ox 100% on R/A; Weight 88.18 kg lr2 (M); Height 5 ft. 5 in. (165.10 cm) (R); Pain 6/10; 22:37 Body Mass Index 32.35 (88.18 kg, 165.10 cm) lr2 Vitals: 22:37 Log In Time: October 02, 2016 at 22:36. lr2 ED Course: 22:37 Patient visited by Annmarie Coronado. lr2 22:37 Patient moved to Waiting lr2 22:39 Patient moved to Pre RCE lr2 22:44 Triage Initiated lf1 22:52 EKG done. (by ED staff). Reviewed by Allen Arana MD. ar3 22:54 Patient visited by Brea Valencia PCA. ar3 23:54 Patient moved to Triage 3 cz 23:56 The patient / caregiver is instructed regarding the plan of care and ED course. cz 10/03 00:20 Tyler Soliz RPA-C is PHCP. ck7 00:20 Edwin Walsh DO is Attending Physician. ck7 00:20 Patient visited by Tyler Soliz RPA-C. ck7 00:32 Patient moved to I8 cz 00:35 Andrea Kirkpatrick,YARA is Primary Nurse. mgs 10/04 10:45 EKG-ADULT Returned. EDMS Order Results: Radiology Order: EKG-ADULT Test: EKG-ADULT REASON FOR EXAMINATION: left arm pain; Stationary ECG Study; [facility] - ED; ; Test Date: 2016-10-02; Pat Name: NORBERT GUERRERO Department:; Room: -; Gender: M Manager [employer] Database: ar; : 1975 Requested By: MIGUEL Sullivan PA-C; Order Number: [id number] Reading MD: Allen Arana; Measurements; Intervals [place]; Rate: 89 P: 76; HI: 126 QRS: 61; QRSD: 95 T: 51; QT: 317; QTc: 386; Interpretive Statements; SINUS RHYTHM; POSSIBLE LAE; Electronically Signed On 10-04-2016 10:09:24 EST by Allen Arana; Outcome: 10/03 00:52 Patient left against medical advice. ck7 00:54 Discharge Assessment: Patient awake, alert and oriented x 3. No cognitive and/or mgs functional deficits noted. Patient verbalized understanding of disposition instructions. patient administered narcotics - no. The following High Risk Discharge criteria are identified: None. The patient is leaving AMA: AMA form signed. Condition: unchanged. No special radiology studies were completed. Property :Personal belongings accompany Pt. 00:56 The patient is leaving AMA: Notification of AMA status is made to the charge nurse, the s socially responsible investment adviser, the ED attending physician, Other Jaret ROD and Dinesh MARSHALL. 01:02 Patient left the ED. s Signatures: Dispatcher [employer] EDMS Melo Mora, RN Radha ChavarriaRN RN lf1 Brea Valencia, SOFTWARE RECRUITER SOFTWARE RECRUITER ar3 Tyler Soliz RPA-C RPA-Cck7 Andrea Kirkpatrick,Annmarie Dorado RN Chart Complete [facility]
== END 2016-10-03 00:50 | disposition left against medical advice (07) ==
LOC: M ED 22:36
DX: M79.622 Pain in left upper arm (principal); E11.9 Type 2 diabetes mellitus without complications; G47.33 Obstructive sleep apnea (adult) (pediatric); F17.210 Nicotine dependence, cigarettes, uncomplicated; Z88.0 Allergy status to penicillin

== ENCOUNTER 2016-10-23 23:06 | Emergency (ER) | payer OTHER ==
[~2016-10-23] VITALS: Ht 165.1 cm; Wt 89.4 kg
[2016-10-23 23:06] VITALS: BP 134/75
[2016-10-24] MEDS ORDERED: traMADol 50 MG TAB PO ONE (00:30)
[2016-10-24] MEDS ORDERED: NAPR500T PO (00:39)
--- NOTE | 2016-10-24 08:00 | REP ---
Clinical: Pain with recent trauma. Technique: AP, lateral, bilateral oblique views of the left ankle. Findings: Lateral view best demonstrates some predominant cortical irregularity along the distal posterior tibial metaphysis which is likely congenital and nontraumatic. However subtle injury cannot be excluded and should be correlated clinically. Remainder examination including ankle mortise appears relatively normal for age. Impression: Subtle irregularity along the posterior cortex of the distal tibial metaphysis. Differential diagnosis includes benign congenital defect versus subtle injury. Correlation is recommended. Signed by Michael Garcia MD 10/24/2016 07:52 A
--- NOTE | 2016-10-25 14:37 | ED PDOC ---
Post-Departure Follow-Up certified letter sent to pt re formal read of left ankle film for fu Caron Mckeon MD Oct 25, 2016 14:36
== END 2016-10-24 01:00 | disposition home or self-care (01) ==
LOC: M ED 10-24 00:16
DX: M77.9 Enthesopathy, unspecified (principal)

== ENCOUNTER 2016-11-19 21:36 | Emergency (ER) | payer OTHER ==
[~2016-11-19] VITALS: Ht 165.1 cm; Wt 86.7 kg
[~2016-11-19 21:36] MED LIST: NAPR500T PO
[2016-11-19 21:44] VITALS: BP 163/83
[2016-11-19] MEDS ORDERED: IBUP-1114 PO (21:47)
[2016-11-19] MEDS ORDERED: METF1000 PO (21:48)
[2016-11-19] MEDS ORDERED: CLIN1CAP5 PO (22:05)
[2016-11-19] MEDS ORDERED: NORCOTAB PO (22:06)
[2016-11-19] MEDS ORDERED: CLINDAMYCIN 150 MG CAP PO ONE (22:15)
[2016-11-19] MEDS ORDERED: NORCO, ANEXSIA 5/325MG TABLET (HYDROcodone/ACETAMINOPHEN) PO ONE (22:15)
== END 2016-11-19 22:33 | disposition home or self-care (01) ==
LOC: M ED 22:08
DX: K08.89 Other specified disorders of teeth and supporting structures (principal); E11.9 Type 2 diabetes mellitus without complications; G47.30 Sleep apnea, unspecified; F17.200 Nicotine dependence, unspecified, uncomplicated; Z79.84 Long term (current) use of oral hypoglycemic drugs; Z88.0 Allergy status to penicillin

== ENCOUNTER 2017-01-23 22:59 | Emergency (ER) | payer OTHER ==
[~2017-01-23] VITALS: Ht 175.3 cm; Wt 86.0 kg
[~2017-01-23 22:59] MED LIST changes: +CLIN150C14 PO; +IBUP-1114 PO; +METF10004 PO; +NORCOTAB PO
[2017-01-24] MEDS ORDERED: NEOSPORIN OINT 0.9 GM PKT (FLOOR STOCK) As Ordered ONE (00:07)
[2017-01-24] MEDS ORDERED: FLUORESCEIN OPHTH 1 MG STRIP XX ONE (00:15)
[2017-01-24] MEDS ORDERED: TETRACAINE 0.5% OPHTH SOLN 4ML XX ONE (00:15)
[2017-01-24] MEDS ORDERED: CLEO300C2 PO (00:24)
[2017-01-24] MEDS ORDERED: PRED1SUS OD (00:27)
[2017-01-24] MEDS ORDERED: prednisoLONE ACET 1% OPHTH SUSP 5ML OD ONE (00:30)
[2017-01-24] MEDS ORDERED: CLINDAMYCIN 150 MG CAP PO ONE (00:30)
[2017-01-24 00:50] VITALS: BP 132/84
[2017-01-24] MEDS ORDERED: prednisoLONE ACET 1% OPHTH SUSP 5ML OD SCH (09:00)
== END 2017-01-24 01:12 | disposition home or self-care (01) ==
LOC: M ED 23:50
DX: L03.213 Periorbital cellulitis (principal); H20.9 Unspecified iridocyclitis; Z88.0 Allergy status to penicillin

== ENCOUNTER 2017-03-19 22:12 | Emergency (ER) | payer OTHER ==
[~2017-03-19] VITALS: Ht 157.5 cm; Wt 83.5 kg
[~2017-03-19 22:12] MED LIST changes: +CLEO300C2 PO; +PRED1SUS OD
[2017-03-19] MEDS ORDERED: IBUP-1022 PO (23:26)
[2017-03-19 23:49] VITALS: BP 138/84
--- NOTE | 2017-03-20 07:48 | REP ---
Right hand four views : There is no fracture or dislocation. Mineralization and joint spaces are normal. There are no calcifications or foreign bodies. Impression: Negative right hand . Signed by Chan Yan MD 03/20/2017 07:40 A
== END 2017-03-20 | disposition home or self-care (01) ==
LOC: M ED 22:12
DX: S60.221A Contusion of right hand, initial encounter (principal); W22.8XXA Striking against or struck by other objects, initial encounter; Y92.099 Unspecified place in other non-institutional residence as the place of occurrence of the external cause; Y93.89 Activity, other specified; Y99.9 Unspecified external cause status; F17.200 Nicotine dependence, unspecified, uncomplicated; G47.30 Sleep apnea, unspecified; Z88.0 Allergy status to penicillin

== ENCOUNTER 2017-08-15 21:39 | Emergency (ER) | payer OTHER ==
[2017-08-16] MEDS ORDERED: CLINDAMYCIN 150 MG CAP PO (01:00)
== END 2017-08-16 01:07 | disposition home or self-care (01) ==
LOC: M ED 21:39
DX: L02.416 Cutaneous abscess of left lower limb (principal); E11.9 Type 2 diabetes mellitus without complications; G47.30 Sleep apnea, unspecified; F17.200 Nicotine dependence, unspecified, uncomplicated; Z88.0 Allergy status to penicillin
CPT/HCPCS: 99283

== ENCOUNTER 2017-09-13 19:41 | Emergency (ER) | payer OTHER ==
[2017-09-13 22:49] LABS: INFLUENZA A AMPLIFICATION POSITIVE (NEGATIVE); INFLUENZA B AMPLIFICATION NEGATIVE (NEGATIVE)
== END 2017-09-13 23:17 | disposition home or self-care (01) ==
LOC: M ED 19:41
DX: J09.X2 Influenza due to identified novel influenza A virus with other respiratory manifestations (principal); Z20.9 Contact with and (suspected) exposure to unspecified communicable disease; E11.9 Type 2 diabetes mellitus without complications; F17.200 Nicotine dependence, unspecified, uncomplicated; Z88.0 Allergy status to penicillin
CPT/HCPCS: 87502

== ENCOUNTER → 2017-12-01 | Outpatient (REF) | payer OTHER | LOC: M LAB REF 14:33 | DX: L03.119 Cellulitis of unspecified part of limb (principal) ==

== ENCOUNTER 2018-01-20 21:52 | Emergency (ER) | payer OTHER ==
[2018-01-21] MEDS: IBUPROFEN 600 MG TAB PO (00:15)
== END 2018-01-21 00:20 | disposition home or self-care (01) ==
LOC: M ED 01-21 00:20
DX: S60.211A Contusion of right wrist, initial encounter (principal); W27.8XXA Contact with other nonpowered hand tool, initial encounter; Y92.009 Unspecified place in unspecified non-institutional (private) residence as the place of occurrence of the external cause; E11.9 Type 2 diabetes mellitus without complications; G47.33 Obstructive sleep apnea (adult) (pediatric); F17.210 Nicotine dependence, cigarettes, uncomplicated; Z88.0 Allergy status to penicillin
CPT/HCPCS: 73110

== ENCOUNTER → 2018-01-28 | Outpatient (CLI) | payer OTHER ==
[2018-01-28 16:14] LABS: BASO # 0.1 10^3/uL (0.0-0.2); BASO % 0.6 % (0.0-1.0); EOS # 0.6 10^3/uL (0.0-0.50); HEMATOCRIT 45.5 % (42.0-52.0); IMMATURE GRANULOCYTE % 0.7 % (0-3.0); LYMPH # 3.5 10^3/uL (1.5-4.5); LYMPH % 30.7 % (24.0-44.0); MEAN CORPUSCULAR HEMOGLOBIN 30.2 pg (27.0-33.0); MEAN CORPUSCULAR VOLUME 91.5 fl (80.0-96.0); MONO # 0.8 10^3/uL (0.0-0.8); MONO % 6.8 % (0.0-5.0); NEUTROPHILS # 6.4 10^3/uL (1.8-7.7); NEUTROPHILS % 56.2 % (36.0-66.0); PLATELET COUNT, AUTOMATED 290 10^3/uL (150-450); RED BLOOD COUNT 4.97 10^6/uL (4.30-6.10); RED CELL DISTRIBUTION WIDTH 13.5 % (11.5-14.5); WHITE BLOOD COUNT 11.3 10^3/uL (4.0-10.0)
[2018-01-28 16:17] LABS: APPEARANCE, URINE CLEAR (CLEAR); BACTERIA, URINE AUTO NEGATIVE (NEGATIVE); BILIRUBIN, URINE AUTO NEGATIVE (NEGATIVE); BLOOD, URINE BLOOD NEGATIVE (NEGATIVE); COLOR, URINE YELLOW (YELLOW); GLUCOSE, URINE (UA) AUTO NEGATIVE (NEGATIVE); KETONE, URINE AUTO NEGATIVE (NEGATIVE); LEUKOCYTE ESTERASE, URINE AUTO TRACE (NEGATIVE); NITRITE, URINE AUTO NEGATIVE (NEGATIVE); PROTEIN, URINE AUTO NEGATIVE (NEGATIVE); RBC, URINE AUTO 3 /HPF (0-3); SPECIFIC GRAVITY URINE AUTO 1.017 (1.002-1.035); SQUAMOUS EPITHELIAL CELL UR AU 1 /HPF (0-6); UROBILINOGEN, URINE AUTO 0.2 mg/dL (0.0-2.0); WBC, URINE AUTO 3 /HPF (0-3)
[2018-01-28 16:29] LABS: ESTIMATED AVERAGE GLUCOSE 134 MG/DL (60-110); HEMOGLOBIN A1c 6.3 %
[2018-01-28 16:37] LABS: PTH INTACT 73.6 PG/ML (18.5-88.0); TOTAL 25(OH) VITAMIN D 16.7 NG/ML (30.0-100.0)
[2018-01-28 16:41] LABS: CREATININE, URINE 92.3 MG/DL; MALB URINE SIEMENS 7.2 MG/L; MAU/CREAT RATIO 7.8 MCG/MG (0.0-30.0)
[2018-01-28 16:43] LABS: ALBUMIN 3.5 GM/DL (3.2-5.2); ALBUMIN/GLOBULIN RATIO 1.06 (1.00-1.93); ALKALINE PHOSPHATASE 95 U/L (45-117); ALT/SGPT 26 U/L (12-78); ANION GAP 5 MEQ/L (8-16); AST/SGOT 13 U/L (7-37); BILIRUBIN,TOTAL 0.4 MG/DL (0.2-1.0); BLOOD UREA NITROGEN 14 MG/DL (7-18); CALCIUM LEVEL 8.5 MG/DL (8.5-10.1); CARBON DIOXIDE LEVEL 31 MEQ/L (21-32); CHLORIDE LEVEL 106 MEQ/L (98-107); CHOLESTEROL LEVEL 188 MG/DL (<200); CHOLESTEROL RISK RATIO 4.585 (<5); CREATININE FOR GFR 0.77 MG/DL (0.70-1.30); GLOMERULAR FILTRATION RATE > 60.0 (>60); GLUCOSE, FASTING 87 MG/DL (70-100); HDL CHOLESTEROL 41 MG/DL (>40); LDL CHOLESTEROL 113.2 MG/DL (<100); NON-HDL-C 147 MG/DL; POTASSIUM SERUM 4.7 MEQ/L (3.5-5.1); SODIUM LEVEL 142 MEQ/L (136-145); TOTAL PROTEIN 6.8 GM/DL (6.4-8.2); TRIGLYCERIDES LEVEL 169 MG/DL (<150)
[2018-01-30 14:47] LABS: INSULIN LEVEL 10.5 uIU/mL (2.6-24.9)
== END ==
LOC: M LAB 15:32
DX: E11.9 Type 2 diabetes mellitus without complications (principal); E55.9 Vitamin D deficiency, unspecified; E78.5 Hyperlipidemia, unspecified
CPT/HCPCS: 83525

== ENCOUNTER → 2018-05-10 | Outpatient (CLI) | payer OTHER ==
[2018-05-10 11:25] LABS: BASO # 0.1 10^3/uL (0.0-0.2); BASO % 0.7 % (0.0-1.0); EOS # 0.5 10^3/uL (0.0-0.50); EOS % 3.7 % (0.0-3.0); HEMATOCRIT 45.2 % (42.0-52.0); HEMOGLOBIN 14.9 g/dl (13.5-17.5); IMMATURE GRANULOCYTE % 0.4 % (0-3.0); LYMPH # 2.8 10^3/uL (1.5-4.5); LYMPH % 22.9 % (24.0-44.0); MEAN CORPUSCULAR HEMOGLOBIN 31.3 pg (27.0-33.0); MONO # 0.7 10^3/uL (0.0-0.8); MONO % 6.1 % (0.0-5.0); NEUTROPHILS # 8.1 10^3/uL (1.8-7.7); NEUTROPHILS % 66.2 % (36.0-66.0); PLATELET COUNT, AUTOMATED 335 10^3/uL (150-450); RED BLOOD COUNT 4.76 10^6/uL (4.30-6.10); RED CELL DISTRIBUTION WIDTH 12.8 % (11.5-14.5); WHITE BLOOD COUNT 12.2 10^3/uL (4.0-10.0)
[2018-05-10 11:51] LABS: ESTIMATED AVERAGE GLUCOSE 131 MG/DL (60-110); HEMOGLOBIN A1c 6.2 %
[2018-05-10 11:59] LABS: MALB URINE SIEMENS 9.6 MG/L
[2018-05-10 12:01] LABS: MAU/CREAT RATIO 6.9 MCG/MG (0.0-30.0)
[2018-05-10 12:15] LABS: ALBUMIN 3.6 GM/DL (3.2-5.2); ALKALINE PHOSPHATASE 105 U/L (45-117); ALT/SGPT 18 U/L (12-78); ANION GAP 6 MEQ/L (8-16); AST/SGOT 11 U/L (7-37); BILIRUBIN,TOTAL 0.6 MG/DL (0.2-1.0); BLOOD UREA NITROGEN 15 MG/DL (7-18); CALCIUM LEVEL 8.9 MG/DL (8.5-10.1); CARBON DIOXIDE LEVEL 32 MEQ/L (21-32); CHLORIDE LEVEL 103 MEQ/L (98-107); CHOLESTEROL LEVEL 145 MG/DL (<200); CHOLESTEROL RISK RATIO 4.393 (<5); CREATININE FOR GFR 0.83 MG/DL (0.70-1.30); GLOMERULAR FILTRATION RATE > 60.0 (>60); GLUCOSE, FASTING 114 MG/DL (70-100); HDL CHOLESTEROL 33 MG/DL (>40); LDL CHOLESTEROL 71 MG/DL (<100); MAGNESIUM LEVEL 2.1 MG/DL (1.8-2.4); NON-HDL-C 112 MG/DL; POTASSIUM SERUM 4.3 MEQ/L (3.5-5.1); SODIUM LEVEL 141 MEQ/L (136-145); TOTAL PROTEIN 6.6 GM/DL (6.4-8.2); TRIGLYCERIDES LEVEL 206 MG/DL (<150)
[2018-05-10 12:39] LABS: PTH INTACT 49.7 PG/ML (18.5-88.0); TOTAL 25(OH) VITAMIN D 37.9 NG/ML (30.0-100.0)
== END ==
LOC: M LAB 10:14
DX: E11.9 Type 2 diabetes mellitus without complications (principal); E78.5 Hyperlipidemia, unspecified; E55.9 Vitamin D deficiency, unspecified
CPT/HCPCS: 83735

== ENCOUNTER → 2019-02-15 | Outpatient (CLI) | payer OTHER ==
[~2019-02-15] MED LIST changes: +ASPI81TA26; +ATOR1TAB21; +CLIN300C5 PO; +D 50CAP; +HYDR-3715 PO; +IBUP-1022 PO; +LISI10TA4; +METF-791 PO; +NAPR-837 PO; -NAPR500T PO; -NORCOTAB PO; +PIOG1TAB36; -PRED1SUS OD; +PRED1SUS2 OD; +STIO1AER; +TRAZ-252
--- NOTE | 2019-02-16 09:27 | REP ---
Left os calcis: Two views. History: Pain in the heel. Comparison left ankle radiographs are from October 24, 2016. Findings: A plantar calcaneal spur is noted. This is slightly larger than it was on the 2017 study. There is soft tissue swelling visible today in the pre-Achilles fat and in the soft tissues deep to this. There is chronic-appearing periosteal reaction which may be posttraumatic deformity along the posterior cortex of the distal tibia on the lateral radiograph. This appears more prominent than the cortical irregularity described here on October 24, 2016. The anterior border of the Achilles tendon is less well defined. These findings merit clinical correlation. Consider radiographs of the left ankle and/or left ankle MRI scanning. Impression: Chronic-appearing periosteal reaction or posttraumatic deformity along the posterior cortex of the distal tibia above the ankle with associated or adjacent swelling in the posterior soft tissues of the distal calf just above the calcaneus. Question edema in the Achilles tendon. Consider ankle radiographs and/or MRI scanning. There is also a plantar calcaneal spur. Electronically Signed by Devante Woodard MD 02/16/2019 09:41 A
== END ==
LOC: M RAD 21:03
PROVIDERS: ATTEND Physician Assistant
DX: M77.32 Calcaneal spur, left foot (principal)

== ENCOUNTER 2019-03-25 21:45 | Emergency (ER) | payer OTHER ==
[~2019-03-25] VITALS: Ht 165.1 cm; Wt 106.1 kg
[~2019-03-25 21:45] MED LIST changes: -ASPI81TA26; -ATOR1TAB21; -CLIN300C5 PO; -D 50CAP; -LISI10TA4; -METF-791 PO; -PIOG1TAB36; -STIO1AER; -TRAZ-252
[2019-03-25] MEDS ORDERED: LISI10TA4 (21:58)
[2019-03-25] MEDS ORDERED: ASPI81TA26 (21:58)
[2019-03-25] MEDS ORDERED: PIOG1TAB36 (21:58)
[2019-03-25] MEDS ORDERED: ATOR1TAB21 (21:58)
[2019-03-25] MEDS ORDERED: STIO1AER (21:58)
[2019-03-25] MEDS ORDERED: D 50CAP (21:58)
[2019-03-25] MEDS ORDERED: TRAZ-252 (21:58)
[2019-03-26] MEDS ORDERED: KETOROLAC 60 MG/2 ML VIAL (J1885) As Ordered ONE (00:59)
[2019-03-26 01:39] VITALS: BP 120/64
[2019-03-26] MEDS ORDERED: KETOROLAC 60 MG/2 ML VIAL (J1885) IM ONE (02:00)
--- NOTE | 2019-03-26 08:17 | REP ---
Left ankle four views: There are no comparison studies. There is an unusual calcific density in the distal tibia. This may represent old calcified periosteal reactive change along the tibial posterior cortex as seen on the lateral view. There is soft tissue edema laterally. No acute fracture is identified. There is no dislocation. The mortise is symmetric. Impression: No fracture or dislocation. Soft tissue edema laterally. Unusual calcification of the distal tibia as described. Electronically Signed by Chan Yan MD 03/26/2019 08:09 A
== END 2019-03-26 01:45 | disposition home or self-care (01) ==
LOC: M ED 21:45
DX: S93.412A Sprain of calcaneofibular ligament of left ankle, initial encounter (principal); S93.492A Sprain of other ligament of left ankle, initial encounter; X50.1XXA Overexertion from prolonged static or awkward postures, initial encounter; Y92.098 Other place in other non-institutional residence as the place of occurrence of the external cause; E11.9 Type 2 diabetes mellitus without complications; Z88.0 Allergy status to penicillin; Z79.899 Other long term (current) drug therapy; Z79.82 Long term (current) use of aspirin
CPT/HCPCS: 73610; 96372; 99283; J1885

== ENCOUNTER → 2019-04-02 | Outpatient (REF) | payer OTHER, MEDICAID ==
[~2019-04-02] MED LIST changes: +ASPI81TA26; +ATOR1TAB21; +D 50CAP; +LISI10TA4; +PIOG1TAB36; +STIO1AER; +TRAZ-252
[2019-04-02 17:46] LABS: ALBUMIN 3.6 GM/DL (3.2-5.2); ALT/SGPT 21 U/L (12-78); BILIRUBIN,TOTAL 0.6 MG/DL (0.2-1.0); BLOOD UREA NITROGEN 13 MG/DL (7-18); CARBON DIOXIDE LEVEL 33 MEQ/L (21-32); CHLORIDE LEVEL 107 MEQ/L (98-107); CHOLESTEROL LEVEL 158 MG/DL (<200); CHOLESTEROL RISK RATIO 4.514 (<5); CREATININE FOR GFR 0.85 MG/DL (0.70-1.30); GLOMERULAR FILTRATION RATE > 60.0 (>60); GLUCOSE, FASTING 112 MG/DL (70-100); HDL CHOLESTEROL 35 MG/DL (>40); LDL CHOLESTEROL 79 MG/DL (<100); NON-HDL-C 123 MG/DL; POTASSIUM SERUM 4.6 MEQ/L (3.5-5.1); SODIUM LEVEL 144 MEQ/L (136-145); THYROID STIMULATING HORMONE 0.839 uIU/ML (0.358-3.740); TOTAL PROTEIN 6.7 GM/DL (6.4-8.2); TRIGLYCERIDES LEVEL 219 MG/DL (<150)
[2019-04-02 17:52] LABS: HEMOGLOBIN A1c 6.3 %
== END ==
LOC: M LAB REF 17:03
PROVIDERS: ATTEND Family Medicine Addiction Medicine
DX: G47.33 Obstructive sleep apnea (adult) (pediatric) (principal); I10 Essential (primary) hypertension; E11.9 Type 2 diabetes mellitus without complications

== ENCOUNTER 2019-04-30 00:54 | Emergency (ER) | payer MEDICAID, OTHER ==
[2019-04-30] MEDS ORDERED: LIDOCAINE 1% MDV 20ML VIAL As Ordered ONE (06:39)
[2019-04-30] MEDS ORDERED: ACETAMINOPHEN 325 MG TAB As Ordered ONE (07:00)
== END 2019-04-30 07:15 | disposition home or self-care (01) ==
LOC: M ED 00:54
DX: L02.31 Cutaneous abscess of buttock (principal); E11.9 Type 2 diabetes mellitus without complications; E78.9 Disorder of lipoprotein metabolism, unspecified; G47.33 Obstructive sleep apnea (adult) (pediatric); F17.200 Nicotine dependence, unspecified, uncomplicated; Z79.82 Long term (current) use of aspirin; Z79.899 Other long term (current) drug therapy; Z86.19 Personal history of other infectious and parasitic diseases; Z88.0 Allergy status to penicillin

== ENCOUNTER 2019-05-02 13:47 | Emergency (ER) | payer OTHER ==
[~2019-05-02] VITALS: Ht 165.1 cm; Wt 105.8 kg
[2019-05-02] MEDS ORDERED: CLIN300C5 PO (14:06)
[2019-05-02] MEDS ORDERED: METF-791 PO (14:06)
[2019-05-02 17:43] VITALS: BP 129/69
== END 2019-05-02 17:45 | disposition home or self-care (01) ==
LOC: M ED 13:47
DX: Z48.89 Encounter for other specified surgical aftercare (principal); L02.31 Cutaneous abscess of buttock; Z79.899 Other long term (current) drug therapy; Z79.82 Long term (current) use of aspirin; Z88.0 Allergy status to penicillin; F17.210 Nicotine dependence, cigarettes, uncomplicated

== ENCOUNTER 2019-05-04 17:35 | Emergency (ER) | payer OTHER ==
[~2019-05-04] VITALS: Ht 165.1 cm; Wt 106.9 kg
[2019-05-04 17:35] VITALS: BP 136/74
[~2019-05-04 17:35] MED LIST changes: +CLIN300C5 PO; +METF-791 PO
== END 2019-05-04 18:08 | disposition home or self-care (01) ==
LOC: M ED 17:35
DX: Z48.89 Encounter for other specified surgical aftercare (principal); E11.65 Type 2 diabetes mellitus with hyperglycemia; G47.30 Sleep apnea, unspecified; F17.210 Nicotine dependence, cigarettes, uncomplicated; Z88.0 Allergy status to penicillin; Z79.84 Long term (current) use of oral hypoglycemic drugs; Z79.82 Long term (current) use of aspirin; Z79.899 Other long term (current) drug therapy

== ENCOUNTER → 2019-08-04 | Outpatient (REF) | payer OTHER ==
[2019-08-04 18:35] LABS: ALBUMIN 3.6 GM/DL (3.2-5.2); ALT/SGPT 23 U/L (12-78); BILIRUBIN,TOTAL 0.7 MG/DL (0.2-1.0); BLOOD UREA NITROGEN 8 MG/DL (7-18); CALCIUM LEVEL 9.2 MG/DL (8.5-10.1); CARBON DIOXIDE LEVEL 31 MEQ/L (21-32); CHLORIDE LEVEL 102 MEQ/L (98-107); CHOLESTEROL LEVEL 168 MG/DL (<200); CREATININE FOR GFR 0.96 MG/DL (0.70-1.30); GLOMERULAR FILTRATION RATE > 60.0 (>60); GLUCOSE, FASTING 128 MG/DL (70-100); HDL CHOLESTEROL 33 MG/DL (>40); LDL CHOLESTEROL 79 MG/DL (<100); NON-HDL-C 135 MG/DL; POTASSIUM SERUM 4.5 MEQ/L (3.5-5.1); SODIUM LEVEL 138 MEQ/L (136-145); TRIGLYCERIDES LEVEL 280 MG/DL (<150)
[2019-08-04 18:56] LABS: HEMOGLOBIN A1c 6.9 %
== END ==
LOC: M LAB REF 16:47
PROVIDERS: ATTEND Family Medicine
DX: E11.9 Type 2 diabetes mellitus without complications (principal)

== ENCOUNTER → 2019-12-04 | Outpatient (REF) | payer OTHER, MEDICAID | LOC: M LAB REF 16:36 | PROVIDERS: ATTEND Physician Assistant | DX: N30.01 Acute cystitis with hematuria (principal); R30.0 Dysuria ==

== ENCOUNTER → 2020-01-03 | Outpatient (REF) | payer OTHER ==
[~2020-01-03] MED LIST changes: +CIPR-249 PO; +FLUT1BLS5 INH; +MELO7.5T35 PO; -METF-791 PO; +METF-838 PO; +NITR100C2 PO
[2020-01-03 20:06] LABS: AMORPHOUS SEDIMENT SMALL (NEGATIVE); APPEARANCE, URINE CLOUDY (CLEAR); BACTERIA, URINE AUTO NEGATIVE (NEGATIVE); BILIRUBIN, URINE AUTO NEGATIVE (NEGATIVE); BLOOD, URINE BLOOD 1+ (NEGATIVE); COLOR, URINE YELLOW (YELLOW); GLUCOSE, URINE (UA) AUTO NEGATIVE (NEGATIVE); KETONE, URINE AUTO NEGATIVE (NEGATIVE); LEUKOCYTE ESTERASE, URINE AUTO 3+ (NEGATIVE); NITRITE, URINE AUTO POSITIVE (NEGATIVE); PROTEIN, URINE AUTO 2+ mg/dL (NEGATIVE); RBC, URINE AUTO 133 /HPF (0-3); SQUAMOUS EPITHELIAL CELL UR AU 1 /HPF (0-6); TRANSITIONAL EPITHELIAL AUTO 1 /HPF; WBC, URINE AUTO TNTC /HPF (0-3)
== END ==
LOC: M LAB REF 19:44
PROVIDERS: ATTEND Physician Assistant Medical
DX: R30.0 Dysuria (principal)

== ENCOUNTER 2020-01-10 17:48 | Emergency (ER) | payer OTHER ==
[~2020-01-10] VITALS: Ht 165.1 cm; Wt 108.2 kg
[~2020-01-10 17:48] MED LIST changes: -CIPR-249 PO; -FLUT1BLS5 INH; -MELO7.5T35 PO; -NITR100C2 PO
[2020-01-10] MEDS ORDERED: FLUT1BLS5 INH (18:10)
[2020-01-10] MEDS ORDERED: MELO7.5T35 PO (18:10)
[2020-01-10] MEDS ORDERED: NITR100C2 PO (18:10)
[2020-01-10] MEDS ORDERED: KETOROLAC 30 MG/ML 1ML VIAL IV ONE (18:15)
[2020-01-10] MEDS ORDERED: NS 1,000 ML IV ONE (18:15)
[2020-01-10 18:48] LABS: BASO # 0.1 10^3/uL (0.0-0.2); BASO % 0.4 % (0.0-1.0); EOS # 0.2 10^3/uL (0.0-0.5); EOS % 1.3 % (0.0-3.0); HEMATOCRIT 49.7 % (42.0-52.0); HEMOGLOBIN 16.3 g/dl (13.5-17.5); LYMPH # 2.2 10^3/uL (1.5-5.0); LYMPH % 16.1 % (24.0-44.0); MEAN CORPUSCULAR HEMOGLOBIN 30.7 pg (27.0-33.0); MEAN CORPUSCULAR HGB CONC 32.8 g/dl (32.0-36.5); MEAN CORPUSCULAR VOLUME 93.6 fl (80.0-96.0); MONO # 0.9 10^3/uL (0.0-0.8); MONO % 6.7 % (0.0-5.0); NEUTROPHILS # 10.2 10^3/uL (1.5-8.5); NEUTROPHILS % 74.9 % (36.0-66.0); PLATELET COUNT, AUTOMATED 352 10^3/uL (150-450); RED BLOOD COUNT 5.31 10^6/uL (4.30-6.10); WHITE BLOOD COUNT 13.6 10^3/uL (4.0-10.0)
[2020-01-10 18:50] LABS: GLUCOSE, URINE (UA) MANUAL NEGATIVE (NEGATIVE); KETONE, URINE MANUAL NEGATIVE (NEGATIVE); UROBILINOGEN, URINE MANUAL NORMAL (NORMAL)
[2020-01-10 18:51] LABS: BILIRUBIN, URINE MANUAL NEGATIVE (NEGATIVE)
[2020-01-10 18:54] LABS: BACTERIA, URINE NONE SEEN; HYALINE CAST, URINE NONE SEEN /lpf (0-1); RBC, URINE TNTC /hpf (0-3); SQUAMOUS EPITHELIAL CELL URINE NONE SEEN /hpf (SMALL AMT)
[2020-01-10] MEDS ORDERED: ISOVUE-370 76% 100ML VIAL As Ordered ONE (19:01)
[2020-01-10 19:08] LABS: INR 0.93; PROTHROMBIN TIME 12.2 SECONDS (11.8-14.0)
[2020-01-10 19:09] LABS: ALBUMIN 4.1 GM/DL (3.2-5.2); BILIRUBIN,DIRECT 0.2 MG/DL (0.0-0.2); BILIRUBIN,TOTAL 0.8 MG/DL (0.2-1.0); PARTIAL THROMBOPLASTIN TIME 26.4 SECONDS (25.0-38.4); TOTAL PROTEIN 7.6 GM/DL (6.4-8.2)
--- NOTE | 2020-01-10 19:27 | REPVR ---
PROCEDURE INFORMATION: Exam: CT Abdomen And Pelvis With Contrast Exam date and time: 01/10/2020 7:06 PM Age: 45 years old Clinical indication: Hematuria, elev wbc TECHNIQUE: Imaging protocol: Computed tomography of the abdomen and pelvis with intravenous contrast. Radiation optimization: All CT scans at this facility use at least one of these dose optimization techniques: automated exposure control; mA and/or kV adjustment per patient size (includes targeted exams where dose is matched to clinical indication); or iterative reconstruction. Contrast material: [id number]; Contrast volume: 100 ml; Contrast route: IV; COMPARISON: No relevant prior studies available. FINDINGS: Lungs: The imaged portions of the lung bases are clear. The lungs were not fully imaged. Heart: No cardiomegaly or pericardial effusion. Diaphragm: Intact. Liver: The attenuation of the liver is lower compared to the spleen, which can be seen with fatty liver infiltration. No liver lesion is seen. The contour of the liver is smooth. No hepatomegaly is noted. Gallbladder and bile ducts: No calcified gallstones are noted. No gallbladder wall thickening, pericholecystic fluid, or pericholecystic inflammatory changes are identified. No dilation of the bile ducts is noted. No calcified stones are seen in the common bile duct. Pancreas: Normal. No dilation of the main pancreatic duct is noted. There is no inflammatory fat stranding around the pancreas to suggest acute pancreatitis. Spleen: Normal. No splenomegaly is noted. Adrenals: Normal. No adrenal mass is noted. Kidneys and ureters: There is a 19 mm benign-appearing exophytic cyst arising from the anterior aspect of the lower pole of the left kidney for which follow-up is not necessary. The right kidney is normal in appearance. No stones are noted in the kidneys or ureters. There is no hydronephrosis or hydroureter. Incidental note is made of a moderately dilated left extrarenal pelvis. There are no wedge-shaped areas of low attenuation in the kidneys to suggest pyelonephritis. There is no renal abscess or perinephric fluid collection. Stomach and bowel: The stomach and small bowel are unremarkable. There is no evidence for a bowel obstruction, diverticulosis, diverticulitis, perforated viscus, pneumatosis intestinalis, intussusception, or volvulus. The descending colon and rectosigmoid are decompressed, limiting their optimal evaluation. There is no pericolonic inflammatory fat stranding. Appendix: Normal. There is no evidence for appendicitis. Intraperitoneal space: No free air. No ascites. No asbcess. Retroperitoneal space: No fluid collection. No mass. Vasculature: The abdominal aorta is patent, normal in caliber, and there is no dissection. The iliac arteries, common femoral arteries, renal arteries, celiac artery, superior mesenteric artery, and inferior mesenteric artery are patent. Lymph nodes: No enlarged lymph nodes. Bladder: There is a 2 cm calculus in the posterior aspect of the bladder. There is fat stranding around the bladder. Reproductive: There are calcifications in the prostate gland. The seminal vesicles are unremarkable. Bones/joints: There is no fracture or dislocation. No suspicious osteolytic or osteoblastic lesion. Incidental note is made of an intraosseous hemangioma in the L4 vertebral body. Soft tissues: There is a small fat containing umbilical hernia. IMPRESSION: 1. 2 cm calculus in the bladder and fat stranding around the bladder, which may indicate cystitis. 2. No stones in the kidneys, ureters, or urinary bladder. No hydronephrosis or hydroureter. No CT evidence for pyelonephritis. 3. Small fat containing umbilical hernia. Electronically signed by: Valdo Sam On 01/10/2020 19:27:27 PM
[2020-01-10] MEDS ORDERED: CIPR-249 PO (20:05)
[2020-01-10] MEDS ORDERED: CIPROFLOXACIN 500MG TABLET PO ONE (20:15)
[2020-01-10 20:58] VITALS: BP 135/69
== END 2020-01-10 21:22 | disposition home or self-care (01) ==
LOC: M ED 17:48
DX: N21.0 Calculus in bladder (principal); R31.9 Hematuria, unspecified; K42.9 Umbilical hernia without obstruction or gangrene; E11.9 Type 2 diabetes mellitus without complications; I10 Essential (primary) hypertension; E78.5 Hyperlipidemia, unspecified; Z87.448 Personal history of other diseases of urinary system; J44.9 Chronic obstructive pulmonary disease, unspecified; F17.200 Nicotine dependence, unspecified, uncomplicated; Z79.82 Long term (current) use of aspirin; Z79.84 Long term (current) use of oral hypoglycemic drugs; Z79.899 Other long term (current) drug therapy; Z88.0 Allergy status to penicillin
CPT/HCPCS: 74177; 80047; 80076; 81000; 81015; 83690; 85025; 85610; 85730; 87086; 96361; 96374; 99284; J1885; Q9967

== ENCOUNTER → 2020-04-28 | Outpatient (CLI) | payer OTHER ==
[~2020-04-28] MED LIST changes: +CIPR-249 PO; +FLUT1BLS5 INH; +MELO7.5T35 PO; +NITR100C2 PO
[2020-04-28 09:01] LABS: BASO # 0.1 10^3/uL (0.0-0.2); BASO % 0.4 % (0.0-1.0); EOS # 0.3 10^3/uL (0.0-0.5); EOS % 2.2 % (0.0-3.0); HEMATOCRIT 49.6 % (42.0-52.0); HEMOGLOBIN 15.9 g/dl (13.5-17.5); LYMPH # 2.2 10^3/uL (1.5-5.0); MEAN CORPUSCULAR HEMOGLOBIN 31.5 pg (27.0-33.0); MEAN CORPUSCULAR HGB CONC 32.1 g/dl (32.0-36.5); MEAN CORPUSCULAR VOLUME 98.2 fl (80.0-96.0); MONO # 1.1 10^3/uL (0.0-0.8); MONO % 9.1 % (0.0-5.0); NEUTROPHILS # 8.4 10^3/uL (1.5-8.5); NEUTROPHILS % 69.9 % (36.0-66.0); PLATELET COUNT, AUTOMATED 308 10^3/uL (150-450); RED BLOOD COUNT 5.05 10^6/uL (4.30-6.10); WHITE BLOOD COUNT 12.1 10^3/uL (4.0-10.0)
[2020-04-28 09:34] LABS: ALBUMIN 3.4 GM/DL (3.2-5.2); ALT/SGPT 24 U/L (12-78); BILIRUBIN,TOTAL 0.5 MG/DL (0.2-1.0); BLOOD UREA NITROGEN 13 MG/DL (7-18); CALCIUM LEVEL 8.7 MG/DL (8.5-10.1); CARBON DIOXIDE LEVEL 32 MEQ/L (21-32); CHLORIDE LEVEL 106 MEQ/L (98-107); CHOLESTEROL LEVEL 114 MG/DL (<200); CHOLESTEROL RISK RATIO 3.166 (<5); FREE T4 0.91 NG/DL (0.76-1.46); GLOMERULAR FILTRATION RATE > 60.0 (>60); GLUCOSE, FASTING 124 MG/DL (70-100); HDL CHOLESTEROL 36 MG/DL (>40); LDL CHOLESTEROL 32 MG/DL (<100); NON-HDL-C 78 MG/DL; POTASSIUM SERUM 4.4 MEQ/L (3.5-5.1); SODIUM LEVEL 141 MEQ/L (136-145); THYROID STIMULATING HORMONE 0.792 uIU/ML (0.358-3.740); TOTAL PROTEIN 6.5 GM/DL (6.4-8.2); TRIGLYCERIDES LEVEL 229 MG/DL (<150)
[2020-04-28 09:37] LABS: TOTAL 25(OH) VITAMIN D 32.9 NG/ML (30.0-100.0)
[2020-04-28 10:44] LABS: HEMOGLOBIN A1c 6.8 %
== END ==
LOC: M LAB 08:25
PROVIDERS: ATTEND Physician Assistant
DX: J44.9 Chronic obstructive pulmonary disease, unspecified (principal); G47.33 Obstructive sleep apnea (adult) (pediatric); F17.210 Nicotine dependence, cigarettes, uncomplicated; E78.5 Hyperlipidemia, unspecified; E11.9 Type 2 diabetes mellitus without complications

== ENCOUNTER 2020-10-01 14:54 | Emergency (ER) | payer OTHER ==
[~2020-10-01] VITALS: Ht 165.1 cm; Wt 123.3 kg
[~2020-10-01 14:54] MED LIST changes: -CLIN150C14 PO; +CLIN150C15 PO; -CLIN300C5 PO; +CLIN300C6 PO; +LISI10TA22; -LISI10TA4
--- OUTSIDE RECORDS SUMMARY | 2020-10-01 15:01 | CCD ---
Author Organization Unknown Address [address] [place] [address] Phone [phone] Care Team Providers Care Airport Engineer Name Role Phone Antione Ramey Giselle Unavailable Unavailable Allergies Code Code System Name Reaction Severity Status Onset Penicillins Hives Moderate Active Medications Name Status Start Date Stop Date albuterol sulfate HFA 90 mcg/actuation a erosol inhaler INHALE TWO PUFFS BY MOUTH THREE TIMES A DAY FOR 10 DAYS Completed 06/10/2020 aspirin 81 mg tablet,delayed release Active Not available atorvastatin 20 mg tablet TAKE ONE TABLET BY MOUTH EVERY DAY Active Not available azithromycin 250 mg tablet TAKE TWO TABLETS BY MOUTH AT ONCE ON THE FIRST DAY THEN TAKE ONE DAILY THEREAFTER Completed 06/10/2020 Bactrim DS 800 mg-160 mg tablet Take 1 tablet every 12 hours by oral route for 5 days. Active Not available BD Alcohol Swabs FASTING BLOOD SUGAR EVERY MORNING AND EVERY EVENING Active Not available cefuroxime axetil 500 mg tablet TAKE ONE TABLET BY MOUTH EVERY 12 HOURS FOR 7 DAYS Completed 06/10/2020 cholecalciferol (vitamin D3) 125 mcg (5, 000 unit) capsule TAKE ONE CAPSULE BY MOUTH EVERY DAY Completed 12/2019 cholecalciferol (vitamin D3) 25 mcg (1,0 00 unit) tablet TAKE ONE TABLET BY MOUTH EVERY DAY Active Not available ciprofloxacin 500 mg tablet Completed 12/2019 fluticasone 250 mcg-salmeterol 50 mcg/do se blistr powdr for inhalation INHALE ONE PUFF BY MOUTH TWICE A DAY GARGLE WITH WATER AND RINSE MOUTH AFTER EVERY USE Completed 06/10/2020 fluticasone 500 mcg-salmeterol 50 mcg/do se blistr powdr for inhalation INHALE ONE PUFF BY MOUTH TWICE A DAY Active No t available lisinopril 10 mg tablet TAKE ONE TABLET BY MOUTH EVERY DAY Active Not available meloxicam 7.5 mg tablet TAKE ONE TABLET BY MOUTH EVERY DAY Active Not available metformin ER 500 mg tablet,extended rele ase 24 hr TAKE ONE TABLET BY MOUTH EVERY DAY Active Not available nitrofurantoin monohydrate/macrocrystals 100 mg capsule Complete d 06/10/2020 OneTouch Delica Plus Lancet 30 gauge CHECK BG ONCE DAILY AND NEEDED UP TO THREE TIMES A DAY Active Not available OneTouch Delica Plus Lancet 33 gauge TEST ONCE DAILY AND NEEDED Active Not avail able OneTouch Ultra Blue Test Strip TEST GLUCOSE FINGERSTICKS DAILY AND NEEDED Active Not available OneTouch Ultra2 Meter TEST ONCE DAILY AND NEEDED Active Not avail able pioglitazone 15 mg tablet TAKE ONE TABLET BY MOUTH EVERY DAY Active Not available Stiolto Respimat 2.5 mcg-2.5 mcg/actuati on solution for inhalation INHALE TWO PUFFS BY MOUTH EVERY DAY Completed 12/2019 trazodone 100 mg tablet TAKE ONE TABLET BY MOUTH EVERY DAY Active Not available trazodone 50 mg tablet TAKE ONE TABLET BY MOUTH AT BEDTIME Completed 06/2020 vitamin d 125 mcg (5000 ut) caps Completed 06/10/2020 vitamin d3 25 mcg (1000 ut) tabs Completed 07/16/2020 Problems Name Status Onset Date Source Hyperlipidemia Active 06/12/2012 History Obesity Active 10/22/2012 History Tobacco Use and Exposure - Finding Unknown 10/22/2012 History Tobacco Dependence Caused by Cigarettes Active 12/10/19 13 History Obstructive Sleep Apnea Syndrome Active 01/29/2013 History Psychophysiologic Insomnia Active 10/08/2018 Histo ry Chronic Obstructive Lung Disease Active 04/16/2019 History Pain in Left Foot Unknown 04/16/2019 History Acute Cystitis Unknown 12/04/2019 History Dysuria Unknown 12/04/2019 History Type 2 Diabetes Mellitus without Complication Active History Hypertensive Disorder Active History Procedures Notes: Unremarkable, cyst removal left e lbow 20 yrs ago Results Lab Results Date Name Specimen Result Interpretation Description Value Range Status Address 06/10/2020 HbA1C (Hemoglobin a1C), Blood A1C 6.8 04/28/2020 LDL, Serum Ldl 32 Past Encounters 07/16/2020 Abscess of Skin And/or Subcutaneous Tissue Antione Ramey RPA-C: [address] [facility], [facility] [address], [place] [address], Ph. 06/10/2020 Chronic Obstructive Lung Disease; Hyperlipidemia; Hypertensive Disorder; Type 2 Diabetes Mellitus without Complication; Tobacco Dependence Caused by Cigarettes; Psychophysiologic Insomnia; Kidney Stone STEVIE MoyaC: [address] [facility], [facility] [address], [place] [address], Ph. Social History Tobacco Smoking Status Heavy Tobacco Smoker (1 1/2 PPD) Vaccine List None recorded. Plan of Care Reminders Provider Appointments None recorded. Lab None recorded. Referral None recorded. Procedures None recorded. Surgeries None recorded. Imaging None recorded. Vitals 07/16/2020 03:10PM TELEHEALTH 20 Height 66 in 06/10/2020 01:30PM ESTABLISHED PATIENT 15 Height Weight BMI Blood Pressure 66 in 263 lbs 3 oz 42.5 kg/m2 122/79 mm[Hg] 12/04/2019 Height Weight Blood Pressure 66 in 248 lbs 9.6 oz 122/84 mm[Hg] 04/16/2019 Height Weight Blood Pressure 66 in 233 lbs 2.08 oz 119/74 mm[Hg] 12/10/2018 Height Weight Blood Pressure 66 in 226 lbs 4 oz 134/84 mm[Hg] 10/08/2018 Height Weight Blood Pressure 66 in 225 lbs 4 oz 150/95 mm[Hg] 08/20/2018 Height Weight Blood Pressure 66 in 227 lbs 6.08 oz 129/77 mm[Hg]
--- OUTSIDE RECORDS SUMMARY | 2020-10-01 15:01 | CCD ---
Author Organization Unknown Address [address] [place] [address] Phone [phone] Care Team Providers Care Washer Engineer Helper Name Role Phone Antione Ramey Unavailable Unavailable Allergies Code Code System Name Reaction Severity Status Onset Penicillins Hives Moderate Active Medications Name Status Start Date Stop Date albuterol sulfate HFA 90 mcg/actuation a erosol inhaler INHALE TWO PUFFS BY MOUTH THREE TIMES A DAY FOR 10 DAYS Completed 06/10/2020 aspirin 81 mg tablet,delayed release TAKE ONE TABLET BY MOUTH EVERY DAY Active Not available atorvastatin 20 mg tablet Active Not av ailable azithromycin 250 mg tablet TAKE TWO TABLETS BY MOUTH AT ONCE ON THE FIRST DAY THEN TAKE ONE DAILY THEREAFTER Completed 06/10/2020 BD Alcohol Swabs FASTING BLOOD SUGAR EVERY [...] available OneTouch Delica Plus Lancet 33 gauge Active Not available OneTouch Ultra Blue Test Strip TEST FASTING BLOOD SUGAR ONCE DAILY AND NEEDED Active Not available OneTouch Ultra2 Meter TEST ONCE DAILY AND NEEDED Active Not avail able pioglitazone 15 mg tablet Active Not av ailable Stiolto Respimat 2.5 mcg-2.5 mcg/actuati on solution for inhalation INHALE TWO PUFFS BY MOUTH EVERY DAY Completed 12/2019 sulfamethoxazole 800 mg-trimethoprim 160 mg tablet Completed 09/01/2020 trazodone 100 mg tablet TAKE ONE TABLET BY MOUTH EVERY DAY Active Not available trazodone 50 mg tablet TAKE ONE TABLET BY MOUTH AT BEDTIME Completed 06/2020 vitamin d 125 mcg (5000 ut) caps Completed 06/10/2020 vitamin d3 25 mcg (1000 ut) tabs Active Not available Problems Name Status Onset Date Source Hyperlipidemia [...] 04/28/2020 LDL, Serum Ldl 32 Past Encounters 09/01/2020 Adult Health Examination; Type 2 Diabetes Mellitus without Complication Erwin Haynes MD: [address] [facility] [address] [address], Ph. 08/25/2020 Antione Ramey RPA-C: [address] [facility], [facility] [address], [place] [address], Ph. 07/16/2020 Abscess of Skin And/or Subcutaneous Tissue Antione Ramey RPA-C: [address] [facility], [facility] [address], [place] [address], Ph. 06/10/2020 Chronic Obstructive Lung Disease; Hyperlipidemia; Hypertensive Disorder; Type 2 Diabetes Mellitus without Complication; Tobacco Dependence Caused by Cigarettes; Psychophysiologic Insomnia; Kidney Stone Antione Desai CARMINA Ramey-C: [address] , [facility] [address], [place] [address], Ph. Social History Tobacco Smoking Status Heavy Tobacco Smoker (1 08/07 PPD) Vaccine List None recorded. Plan of Care Reminders Provider Appointments None recorded. Lab None recorded. Referral None recorded. Procedures None recorded. Surgeries None recorded. Imaging None recorded. Vitals 09/01/2020 11:20AM ANNUAL EXAM Height Weight BMI Blood Pressure 66 in 273 lbs 6.4 oz 44.1 kg/m2 143/82 mm[Hg ] 07/16/2020 03:10PM TELEHEALTH 20 Height 66 in [...]
--- OUTSIDE RECORDS SUMMARY | 2020-10-01 15:01 | CCD ---
Author Author [facility] Organization [facility] Address Unknown Phone Unavailable Care Team Providers Care Shaft Headman Name Role Phone Fabricio Tay Unavailable PROBLEMS Type Condition ICD9-CM Code [id number] Code Onset Dates Condition S tatus SNOMED Code Notes Problem Diabetes mellitus, type 2 E11.9 Active 511788 06 Problem Hyperlipidemia E78.5 Active 74168969 Problem Obesity E66.9 Active 250470291 Problem Nicotine use disorder F17.200 Active 97126938 Problem Vitamin D deficiency, unspecified E55.9 Active 45829486 Problem Bladder stones N21.0 Active 10752817 Problem Nicotine addiction F17.200 Active 826098024 Problem JAMES treated with BiPAP G47.33 Active 37779160 Problem Essential hypertension I10 Active 49927433 Problem Stage 1 mild COPD by GOLD classification J44.9 Active 567593161 ALLERGIES Allergen (clinical drug ingredient) Drug/Non Drug Allergy do cumented on EMR Reaction Allergy Type Onset Date Status Penicillin (For Allergies Use Only) Hives Drug Allerg y Active ENCOUNTERS from 1973 to 2020-08-18 Encounter Location Date Provider Diagnosis [facility] [address] [place] [address] Aug Tay Regalado IMMUNIZATIONS No Information SOCIAL HISTORY Sex Assigned At : Social History Observation Description Sex Assigned At Unknown Tobacco Use: Question Answer Notes Patient counseled on the dangers of tobacco use and urged to quit: 01/28/2018 How many cigarettes a day do you smoke? 31 or more Are you interested in quitting? Thinking about quitting Counseled the patient on smoking cessation, education provid ed 01/28/2018 REASON FOR REFERRAL No Information VITAL SIGNS No information MEDICATIONS Medication SIG (Take, Route, Frequency, Duration) Notes Start Da te End Date Status Easy Touch Lancets 30G 1 as directed E11.9 four times daily for 30 day(s) Jan, Active Pioglitazone HCl 15 MG TAKE ONE TABLET BY MOUTH EVERY DAY Oral for 30 Active Stiolto Respimat 2.5-2.5 MCG/ACT 2 puffs Inhalation Once a day f or 30 day(s) Apr, Active Debrox 6.5 % 5 drops into affected ear Otic Twice a day for 4 day(s) Jan, Not-Taking Meloxicam 7.5 MG 1 tablet Orally Once a day for 30 day(s) Active Cholecalciferol 5000 UNIT 1 capsule Orally Once a day for 30 day(s) Active Nicoderm CQ 21 MG/24HR 1 patch to skin Transdermal Once a day fo r 30 day(s) Apr, Active Bactrim DS 800-160 MG 1 tablet Orally as directed- 1 hour prior to cystoscopy Jan, Active Lisinopril 10 MG 1 tablet Orally Once a day for 30 day(s) Apr, Active Ibuprofen 600 MG 1 tablet with food or milk as needed Orally Jody ly as needed Not-Taking Aspir-81 81 MG 1 tablet Orally Once a day for 30 day(s) Active Atorvastatin Calcium 20 MG 1 tablet Orally Once a day for 30 day(s) Active TraZODone HCl 50 MG 1 tablet at bedtime as neede d Orally Once a day for 30 day(s) Active Glucose strip (Verio IQ) 1 as directed E11.9 bid for 30 day(s) Apr, Active MetFORMIN HCl ER 500 MG 1 tablet with evening meal O rally Once a day for 30 day(s) Active OneTouch Verio 1 2 E11.9 bid for 30 day(s) Jan, Active Accu-Chek Safe-T Pro Lancets 1 1 lancet E11.9 bid for 30 day(s) Apr, Active May Have 1 repair or replace bipap and accessories G47.33 nightly for 30 day(s) Active PROCEDURES No Information RESULTS No Results REASON FOR VISIT 08/23/2020 appt MEDICAL (GENERAL) HISTORY Type Description Date Medical History DM type 2 Medical History Hyperlipidemia Medical History Nicotine addiction Medical History JAMES c Bi-pap- Terrence's Surgical History cyst on arm and buttock removed Goals Section No Information Health Concerns No Information MEDICAL EQUIPMENT No Information MENTAL STATUS No Information FUNCTIONAL STATUS No Information ASSESSMENTS No Information PLAN OF TREATMENT Medication Medication Name Sig Start Date Stop Date Bactrim DS 800-160 MG 1 tablet Orally as directed- 1 hour pr ior to cystoscopy Jan, Next Appt Details Provider Name:Tay Stefany Regalado, 11:30:00 AM, [address], [place], [address], Insurance Providers Payer Name Payer Address Payer Phone Insured Name Patient Relati onship to Insured Coverage Start Date Coverage End Date [facility] [employer] [facility] [address] [facility] [phone] RUSLAN GUERRERO self
--- OUTSIDE RECORDS SUMMARY | 2020-10-01 15:02 | CCD ---
Author Author [facility] Organization [facility] Address Unknown Phone Unavailable Support Name Relationship Address Phone Antione Medel Next Of Kin [address] [phone] JAYNE HERNANDEZ Next Of Kin [address] [place] [address] Guillermina Lopez Next Of Kin [address] [place] [address] Erwin Haynes MD Next Of Kin [address] [place] [address] SABAS HERNANDEZ Next Of Kin [address] [place] [address] SABAS JONES Next Of Kin [address] [place] [address] [place] GUERRERO Next Of Kin [address] [place] [address] CELL CHAD BARILLAS Next Of Kin [address] [phone] NONE, PT PER Next Of Kin - -, - - - Stefany BARILLAS Next Of Kin [address] [phone] CELL LYLE HAYS Next Of Kin [address] [place] [address] Gustavo HAYS Next Of Kin [address] [id number] UE Next Of Kin Unknown Unavailable DISABLED Next Of Kin Unknown Unavailable Kirsten PEARSON Next Of Kin [address] [place] [id number] UN Next Of Kin Unknown Unavailable RUSLAN GUERRERO SR Of Kin [facility] [address] [place] [address] CELL YOLANDA Kirsten [place] [address] CELL Sabas Hernandez ECON [id number] [place] [address] Unavailable Care Team Providers Care Buffing Machine Tender Name Role Phone RAMEY, ASHLEY ANTIONE RPA-C Unavailable Unavailable RAMEY, ASHLEY ANTIONE RPA-C Unavailable Unavailable RAMEY, ASHLEY ANTIONE RPA-C Unavailable Unavailable RAMEY, ASHLEY ANTIONE RPA-C Unavailable Unavailable RAEMY, ASHLEY ANTIONE RPA-C Unavailable Unavailable RAMEY, ASHLEY ANTIONE RPA-C Unavailable Unavailable RAMEY, ASHLEY ANTIONE RPA-C Unavailable Unavailable RAMEY, ASHLEY ANTIONE RPA-C Unavailable Unavailable RAMEY, ASHLEY ANTIONE RPA-C Unavailable Unavailable RAMEY, ASHLEY ANTIONE RPA-C Unavailable Unavailable RAMEY, ASHLEY ANTIONE RPA-C Unavailable Unavailable RAMEY, ASHLEY ANTIONE RPA-C Unavailable Unavailable RAMEY, ASHLEY ANTIONE RPA-C Unavailable Unavailable RAMEY, ASHLEY ANTIONE RPA-C Unavailable Unavailable RAMEY, ASHLEY NATIONE RPA-C Unavailable Unavailable RAMEY, ASHLEY ANTIONE RPA-C Unavailable Unavailable RAMEY, ASHLEY ANTIONE RPA-C Unavailable Unavailable RAMEY, ASHLEY ANTIONE RPA-C Unavailable Unavailable RAMEY, ASHLEY ANTIONE RPA-C Unavailable Unavailable RAMEY, ASHLEY ANTIONE RPA-C Unavailable Unavailable RAMEY, ASHLEY ANTIONE RPA-C Unavailable Unavailable RAMEY, ASHLEY ANTIONE RPA-C Unavailable Unavailable RAMEY, ASHLEY ANTIONE RPA-C Unavailable Unavailable RAMEY, ASHLEY ANTIONE RPA-C Unavailable Unavailable RAMEY, ASHLEY ANTIONE RPA-C Unavailable Unavailable RAMEY, ASHLEY ANTIONE RPA-C Unavailable Unavailable RAMEY, ASHLEY ANTIONE RPA-C Unavailable Unavailable RAMEY, ASHLEY ANTIONE RPA-C Unavailable Unavailable RAMEY, ASHLEY ANTIONE RPA-C Unavailable Unavailable RAMEY, ASHLEY ANTIONE RPA-C Unavailable Unavailable RAMEY, ASHLEY ANTIONE RPA-C Unavailable Unavailable RAMEY, ASHLEY ANTIONE RPA-C Unavailable Unavailable RAMEY, ASHLEY ANTIONE RPA-C Unavailable Unavailable RAMEY, ASHLEY ANTIONE RPA-C Unavailable Unavailable RAMEY, ASHLEY ANTIONE RPA-C Unavailable Unavailable RAMEY, ASHLEY ANTIONE RPA-C Unavailable Unavailable RAMEY, ASHLEY ANTIONE RPA-C Unavailable Unavailable RAMEY, ASHLEY ANTIONE RPA-C Unavailable Unavailable RAMEY, ASHLEY ANTIONE RPA-C Unavailable Unavailable Giselle Haynes MD Unavailable Unavailable Giselle Haynes MD Unavailable Unavailable Giselle Haynes MD Unavailable Unavailable Giselle Haynes MD Unavailable Unavailable Giselle Haynes MD Unavailable Unavailable Giselle Haynes MD Unavailable Unavailable Giselle Haynes MD Unavailable Unavailable Giselle Haynes MD Unavailable Unavailable Giselle Haynes MD Unavailable Unavailable Giselle Haynes MD Unavailable Unavailable Giselle Haynes MD Unavailable Unavailable Giselle Haynes MD Unavailable Unavailable Giselle Haynes MD Unavailable Unavailable Giselle Haynes MD Unavailable Unavailable Giselle Haynes MD Unavailable Unavailable Giselle Haynes MD Unavailable Unavailable Giselle Haynes MD Unavailable Unavailable Giselle Haynes MD Unavailable Unavailable Giselle Haynes MD Unavailable Unavailable Giselle Haynes MD Unavailable Unavailable Giselle Haynes MD Unavailable Unavailable Giselle Haynes MD Unavailable Unavailable Giselle Haynes MD Unavailable Unavailable Giselle Haynes MD Unavailable Unavailable Giselle Haynes MD Unavailable Unavailable Giselle Haynes MD Unavailable Unavailable Giselle Haynes MD Unavailable Unavailable Giselle Haynes MD Unavailable Unavailable Giselle Haynes MD Unavailable Unavailable Giselle Haynes MD Unavailable Unavailable Giselle Haynes MD Unavailable Unavailable Giselle Haynes MD Unavailable Unavailable Giselle Haynes MD Unavailable Unavailable Giselle Haynes MD Unavailable Unavailable Giselle Haynes MD Unavailable Unavailable Gieslle Haynes MD Unavailable Unavailable Giselle Haynes MD Unavailable Unavailable Giselle Haynes MD Unavailable Unavailable Giselle Haynes MD Unavailable Unavailable Giselle Haynes MD Unavailable Unavailable Giselle Haynes MD Unavailable Unavailable Giselle Haynes MD Unavailable Unavailable Giselle Haynes MD Unavailable Unavailable Giselle Haynes MD Unavailable Unavailable Giselle Haynes MD Unavailable Unavailable Giselle Haynes MD Unavailable Unavailable Giselle Haynes MD Unavailable Unavailable Giselle Haynes MD Unavailable Unavailable Giselle Haynes MD Unavailable Unavailable Giselle Haynes MD Unavailable Unavailable Giselle Haynes MD Unavailable Unavailable Giselle Haynes MD Unavailable Unavailable Giselle Haynes MD Unavailable Unavailable Giselle Haynes MD Unavailable Unavailable Giselle Haynes MD Unavailable Unavailable Giselle Haynes MD Unavailable Unavailable Giselle Haynes MD Unavailable Unavailable Giselle Haynes MD Unavailable Unavailable Giselle Haynes MD Unavailable Unavailable Giselle Haynes MD Unavailable Unavailable Giselle Haynes MD Unavailable Unavailable Giselle Haynes MD Unavailable Unavailable Giselle Haynes MD Unavailable Unavailable Giselle Haynes MD Unavailable Unavailable Giselle Haynes MD Unavailable Unavailable Giselle Haynes MD Unavailable Unavailable Giselle Haynes MD Unavailable Unavailable Giselle Haynes MD Unavailable Unavailable Giselle Haynes MD Unavailable Unavailable Giselle Haynes MD Unavailable Unavailable Giselle Haynes MD Unavailable Unavailable Giselle Haynes MD Unavailable Unavailable Giselle Haynes MD Unavailable Unavailable Haynes, Giselle Hood MD Unavailable Unavailable Haynes, Giselle Hood MD Unavailable Unavailable Giselle Haynes MD Unavailable Unavailable Haynes, Giselle Hood MD Unavailable Unavailable Giselle Haynes MD Unavailable Unavailable Giselle Haynes MD Unavailable Unavailable Giselle Haynes MD Unavailable Unavailable Giselle Haynes MD Unavailable Unavailable Giselle Haynes MD Unavailable Unavailable Ivy, Giselle Hood MD Unavailable Unavailable Giselle Haynes MD Unavailable Unavailable Giselle Haynes MD Unavailable Unavailable Giselle Haynes MD Unavailable Unavailable Giselle Haynes MD Unavailable Unavailable Giselle Haynes MD Unavailable Unavailable HaynesGiselle MD Unavailable Unavailable [place], Guillermina UI ARCHITECT UI ARCHITECT Unavailable Unavailable [place]me[place], F Guillermina UI ARCHITECT-BC Unavailable Unavailable [place], F Guillermina UI ARCHITECT-BC Unavailable Unavailable [place], F Guillermina UI ARCHITECT-BC Unavailable Unavailable [place], F Guillermina UI ARCHITECT-BC Unavailable Unavailable [place], F Guillermina UI ARCHITECT-BC Unavailable Unavailable Almeida, F Guillermina UI ARCHITECT-BC Unavailable Unavailable Almeida, F Guillermina UI ARCHITECT-BC Unavailable Unavailable [place]ida, F Guillermina UI ARCHITECT-BC Unavailable Unavailable Almeida, F Guillermina UI ARCHITECT-BC Unavailable Unavailable Almeida, F Guillermina UI ARCHITECT-BC Unavailable Unavailable Almeida, F Guillermina UI ARCHITECT-BC Unavailable Unavailable Almeida, F Guillermina UI ARCHITECT-BC Unavailable Unavailable Almeida, F Guillermina UI ARCHITECT-BC Unavailable Unavailable Almeida, F Guillermina UI ARCHITECT-BC Unavailable Unavailable Almeida, F Guillermina UI ARCHITECT-BC Unavailable Unavailable Almeida, F Guillermina UI ARCHITECT-BC Unavailable Unavailable Almeida, F Guillermina UI ARCHITECT-BC Unavailable Unavailable [place], F Guillermina UI ARCHITECT-BC Unavailable Unavailable [place], F Guillermina UI ARCHITECT-BC Unavailable Unavailable [place], F Guillermina UI ARCHITECT-BC Unavailable Unavailable [place], F Guillermina UI ARCHITECT-BC Unavailable Unavailable [place], F Guillermina UI ARCHITECT-BC Unavailable Unavailable RAMEY, ASHLEY ANTIONE RPA-C Unavailable Unavailable RAMEY, ASHLEY ANTIONE RPA-C Unavailable Unavailable RAMEY, ASHLEY ANTIONE RPA-C Unavailable Unavailable RAMEY, ASHLEY ANTIONE RPA-C Unavailable Unavailable RAMEY, ASHLEY ANTIONE RPA-C Unavailable Unavailable RAMEY, ASHLEY ANTIONE RPA-C Unavailable Unavailable RAMEY, ASHLEY ANTIONE RPA-C Unavailable Unavailable RAMEY, ASHLEY ANTIONE RPA-C Unavailable Unavailable RAMEY, ASHLEY ANTIONE RPA-C Unavailable Unavailable RAMEY, ASHLEY ANTIONE RPA-C Unavailable Unavailable RAMEY, ASHLEY ANTIONE RPA-C Unavailable Unavailable RAMEY, ASHLEY ANTIONE RPA-C Unavailable Unavailable RAMEY, ASHLEY ANTIONE RPA-C Unavailable Unavailable RAMEY, ASHLEY ANTIONE RPA-C Unavailable Unavailable RAMEY, ASHLEY ANTIONE RPA-C Unavailable Unavailable RAMEY, ASHLEY ANTIONE RPA-C Unavailable Unavailable RAMEY, ASHLEY ANTIONE RPA-C Unavailable Unavailable RAMEY, ASHLEY ANTIONE RPA-C Unavailable Unavailable RAMEY, ASHLEY ANTIONE RPA-C Unavailable Unavailable RAMEY, ASHLEY ANTIONE RPA-C Unavailable Unavailable RAMEY, ASHLEY ANTIONE RPA-C Unavailable Unavailable RAMEY, ASHLEY ANTIONE RPA-C Unavailable Unavailable RAMEY, ASHLEY ANTIONE RPA-C Unavailable Unavailable RAMEY, ASHLEY ANTIONE RPA-C Unavailable Unavailable RAMEY, ASHLEY ANTIONE RPA-C Unavailable Unavailable RAMEY, ASHLEY ANTIONE RPA-C Unavailable Unavailable RAMEY, ASHLEY ANTIONE RPA-C Unavailable Unavailable RAMEY, ASHLEY ANTIONE RPA-C Unavailable Unavailable RAMEY, ASHLEY ANTIONE RPA-C Unavailable Unavailable RAMEY, ASHLEY ANTIONE RPA-C Unavailable Unavailable RAMEY, ASHLEY ANTIONE RPA-C Unavailable Unavailable RAMEY, ASHLEY ANTIONE RPA-C Unavailable Unavailable RAMEY, ASHLEY ANTIONE RPA-C Unavailable Unavailable RAMEY, ASHLEY ANTIONE RPA-C Unavailable Unavailable RAMEY, ASHLEY ANTIONE RPA-C Unavailable Unavailable RAMEY, ASHLEY ANTIONE RPA-C Unavailable Unavailable RAMEY, ASHLEY ANTIONE RPA-C Unavailable Unavailable RAMEY, ASHLEY ANTIONE RPA-C Unavailable Unavailable RAMEY, ASHLEY ANTIONE RPA-C Unavailable Unavailable [facility], RFROST RAMEY [place] ANTIONE Unavailable Unavailable Re-disclosure Warning The records that you are about to access may contain information from federally-assisted alcohol or drug abuse programs. If such information is present, then the following federally mandated warning applies: This information has been disclosed to you from records protected by federal confidentiality rules (42 CFR part 2). The federal rules prohibit you from making any further disclosure of this information unless further disclosure is expressly permitted by the written consent of the person to whom it pertains or as otherwise permitted by 42 CFR part 2. A general authorization for the release of medical or other information is NOT sufficient for this purpose. The Federal rules restrict any use of the information to criminally investigate or prosecute any alcohol or drug abuse patient.The records that you are about to access may contain highly sensitive health information, the redisclosure of which is protected by Article 27-F of the [facility] Public Health law. If you continue you may have access to information: Regarding HIV / AIDS; Provided by facilities licensed or operated by the [facility] Office of Mental Health; or Provided by the [facility] Office for People With Developmental Disabilities. If such information is present, then the following [facility] mandated warning applies: This information has been disclosed to you from confidential records which are protected by state law. State law prohibits you from making any further disclosure of this information without the specific written consent of the person to whom it pertains, or as otherwise permitted by law. Any unauthorized further disclosure in violation of state law may result in a fine or senior living sentence or both. A general authorization for the release of medical or other information is NOT sufficient authorization for further disc losure. Allergies and Adverse Reactions Type Description Substance Reaction Status Data Source(s ) Allergy to substance Allergy to substance Allergy to substance [place] ([facility]) Encounters Encounter Providers Location Date Indications Data Source(s ) Erwin Haynes MD: [address], [address] [address], Ph. Attender: Erwin Haynes MD [facility] Medical 09/01/2020 12:00:00 AM EST [place] ([facility]) STEVIE MoyaC: [address] [facility], [address], [place] [address], Ph. Attender: ANTIONE HUBBARDC [facility] Medical 08/25/2020 12:00:00 AM EST [place] ([facility]) Unknown [address], [facility] [address] 08/18/2020 12:00:00 AM EST eCW1 ([facility]) Antione Ramey RPA-C: [address], [place] [address], Ph. Attender: ANTIONE RAMEY RPA-C [facility] Medical 07/16/2020 12:00:00 AM EST [place] ([facility]) Antione Ramey RPA-C: [address], [place] [address], Ph. Attender: ANTIONE RAMEY RPA-C [facility] Medical 07/16/2020 12:00:00 AM EST [place] ([facility]) Antione Ramey RPA-C: [address], [place] [address], Ph. Attender: ANTIONE RAMEY RPA-C [facility] Medical 06/10/2020 12:00:00 AM EST [place] ([facility]) Antione Ramey RPA-C: [address], [place] [address], Ph. Attender: ANTIONE RAMEY RPA-C [facility] Medical 06/10/2020 12:00:00 AM EST [place] ([facility]) Antione Ramey RPA-C: [address], [place] [address], Ph. Attender: ANTIONE RAMEY RPA-C [facility] Medical 06/10/2020 12:00:00 AM EST [place] ([facility]) Outpatient Attender: MONICA FULTON [facility] 04/2020 04:52:00 PM [facility] Outpatient Attender: MONICA FULTON [facility] 04/2020 04:50:59 PM EDT [facility] Outpatient Attender: RFROST RAMEY [place] ANTIONE [facility] 12/2019 02:06:00 PM EDT [facility] Outpatient Attender: RFROST RAMEY PA ANTIONE [facility] 09/2019 03:08:01 PM EDT [facility] Outpatient Attender: ANTIONE RAMEY RPA-C [facility] 05/07/2020 03:08:00 PM EDT [facility] Outpatient Attender: RFROST RAMEY PA ANTIONE [facility] 04/06 01:44:01 PM EDT [facility] Outpatient Attender: RFROST RAMEY PA ANTIONE [facility] 11/2019 01:17:01 PM EDT [facility] Outpatient Attender: RFROST RAMEY PA ANTIONE [facility] 09/2019 08:13:01 AM EDT [facility] Outpatient Attender: RFROST RAMEY PA ANTIONE [facility] 03/07 05:16:03 PM EDT [facility] Outpatient Attender: RFROST RAMEY PA ANTIONE [facility] 03/07 04:16:01 PM EDT [facility] Outpatient Attender: RFROST RAMEY PA ANTIONE [facility] 02/05 05:47:59 PM EDT [facility] Outpatient Attender: RFROST RAMEY PA ANTIONE [facility] 02/2020 11:19:01 AM EDT [facility] Outpatient 01/23/2020 05:52:00 AM EDT [facility] Outpatient Attender: RFROST RAMEY PA ANTIONE [facility] 01/04 03:43:59 PM EDT [facility] [address], [facility] [address] 01/19/2020 12:00:00 AM EDT [facility] ([facility]) Outpatient Attender: RFROST RAMEY PA ANTIONE [facility] 04/2020 08:56:00 AM EDT [facility] Outpatient Attender: RFROST RAMEY PA ANTIONE [facility] 12/05 08:55:59 AM EDT [facility] Outpatient Attender: MONICA MEDINAST ROLANDO ROA [facility] 12/05 08:07:01 AM EDT [facility] Outpatient Attender: MONICA RAMEY [facility] 12/04 04:20:01 PM EDT [facility] Outpatient Attender: MONICA MEDINAST ROLANDO ROA [facility] 03/2020 01:08:00 PM EDT [facility] Outpatient Attender: ANTIONE RAMEY RPA-C [facility] 12/12/2019 01:07:59 PM EDT [facility] Outpatient Attender: ANTIONE RAMEY RPA-C 12/09/2019 10:35:01 AM EDT [facility] Outpatient Attender: ANTIONE RAMEY RPA-C [facility] 12/09/2019 09:33:00 AM EDT [facility] Outpatient Attender: ANTIONE RAMEY RPA-C 12/09/2019 07:32:03 AM EDT [facility] Outpatient Attender: GENARUPAL JOVANY ROA [facility] 12/09/2019 07:32:03 AM EDT [facility] Outpatient Attender: ANTIONE RAMEY RPA-C [facility] 12/05/2019 09:39:01 AM EDT [facility] Outpatient Attender: ANTIONE RAMEY RPA-C FP 12/04/2019 03:18:03 PM EDT [facility] Outpatient Attender: ANTIONE RAMEY RPA-C FP 12/04/2019 02:48:00 PM EDT [facility] Outpatient Attender: SONDRA AMARO FP 12/04/2019 02:28:00 PM EDT [facility] Outpatient Attender: Guillermina HANKINS FP 11/27/2019 02: 56:01 PM EDT [facility] Outpatient Attender: Guillermina MATTSON 10/31/2019 01: 35:00 PM EDT [facility] Outpatient Attender: Guillermina HANKINS FP 10/28/2019 09: 47:01 AM EDT [facility] Outpatient Attender: SONDRA MATTSON 10/27/2019 11:49:00 AM EDT [facility] Outpatient Attender: Guillermina MATTSON 10/16/2019 11: 34:03 AM EDT [facility] Outpatient Attender: Guillermina HANKINS FP 10/11/2019 11: 53:00 AM [facility] Outpatient Attender: Guillermina HANKINS FP 10/07/2019 04: 13:01 PM [facility] Outpatient Attender: SONDRA AMARO FP 10/06/2019 03:53:01 PM [facility] Outpatient Attender: OSNDRA AMARO FP 09/02/2019 11:53:00 AM [facility] Outpatient Attender: Guillermina HANKINS FP 08/21/2019 01: 43:00 PM [facility] Outpatient Attender: SONDRA MATTSON 08/20/2019 11:29:00 AM [facility] Outpatient Attender: Guillermina HANKINS FP 08/07/2019 08: 21:46 AM [facility] Outpatient Attender: SONDRA AMARO FP 08/07/2019 08:21:42 AM [facility] Outpatient Attender: Guillermina HANKINS FP 08/04/2019 04: 58:01 PM [facility] Outpatient Attender: SONDRA AMARO FP 08/04/2019 09:31:00 AM [facility] Medications Medication Brand Name Start Date Product Form Dose Route Admi nistrative Instructions Pharmacy Instructions Status Indications Reaction Description Data Source(s) Sulfamethoxazole 800 MG / Trimethoprim 1 60 MG Oral Tablet [Bactrim] Bactrim DS 800-160 MG Bactrim DS 800-160 MG 01/19/2020 12:00:00 AM EDT 1.0 {table t} active Bactrim DS 800-160 MG eCW1 ( [facility]) Sulfamethoxazole 800 MG / Trimethoprim 1 60 MG Oral Tablet [Bactrim] Bactrim DS 800-160 MG Bactrim DS 800-160 MG 01/19/2020 12:00:00 AM EDT 1.0 {table t} active Bactrim DS 800-160 MG eCW1 ( [facility]) Cholecalciferol 5000 UNT Oral Capsule ch olecalciferol (vitamin D3) 125 mcg (5,000 unit) capsule TAKE ONE CAPSULE BY MOUTH EVERY DAY cholecalciferol (vitamin D3) 125 mcg (5,000 unit) capsule TAKE ONE CAPSULE BY MOUTH EVERY DAY completed cholecalcifero l 0.125 MG Oral Capsule [place] ([facility]) vitamin d 125 mcg (5000 ut) caps completed vitamin d 125 mcg (5000 ut) caps [place] ([facility]) Ciprofloxacin 500 MG Oral Tablet ciprofloxacin 500 mg tablet ciprofloxacin 500 mg tablet completed ciprofloxaci n 500 MG Oral Tablet [place] ([facility]) Trazodone Hydrochloride 50 MG Oral Table t trazodone 50 mg tablet TAKE ONE TABLET BY MOUTH AT BEDTIME trazodone 50 mg tablet TAKE ONE TABLET BY MOUTH AT BED TIME completed trazodone hydr ochloride 50 MG Oral Tablet [place] ([facility]) Azithromycin 250 MG Oral Tablet azithrom ycin 250 mg tablet TAKE TWO TABLETS BY MOUTH AT ONCE ON THE FIRST DAY THEN TAKE ONE DAILY THEREAFTER azithromycin 250 mg tablet TAKE TWO TABLETS BY MOUTH AT ONCE ON THE FIRST DAY THEN TAKE ONE DAILY THEREAFTER completed azithromyc in 250 MG Oral Tablet [place] ([facility]) Azithromycin 250 MG Oral Tablet azithrom ycin 250 mg tablet TAKE TWO TABLETS BY MOUTH AT ONCE ON THE FIRST DAY THEN TAKE ONE DAILY THEREAFTER azithromycin 250 mg tablet TAKE TWO TABLETS BY MOUTH AT ONCE ON THE FIRST DAY THEN TAKE ONE DAILY THEREAFTER completed azithromyc in 250 MG Oral Tablet [place] ([facility]) Trazodone Hydrochloride 50 MG Oral Table t trazodone 50 mg tablet TAKE ONE TABLET BY MOUTH AT BEDTIME trazodone 50 mg tablet TAKE ONE TABLET BY MOUTH AT BED TIME completed trazodone hydr ochloride 50 MG Oral Tablet [place] ([facility]) NITROFURANTOIN, MACROCRYSTALS 25 MG / Ni trofurantoin, Monohydrate 75 MG Oral Capsule nitrofurantoin monohydrate/macrocrystals 100 mg capsule nitrofurantoin monohydrate/macrocrystals 100 mg capsule completed nitrofurantoin, macrocrystals 25 MG / nitrofurantoin, monohydrate 75 MG Oral Capsule [place] ([facility]) Trazodone Hydrochloride 50 MG Oral Table t trazodone 50 mg tablet TAKE ONE TABLET BY MOUTH AT BEDTIME trazodone 50 mg tablet TAKE ONE TABLET BY MOUTH AT BED TIME completed trazodone hydr ochloride 50 MG Oral Tablet [place] ([facility]) olodaterol 0.0025 MG/ACTUAT / tiotropium 0.0025 MG/ACTUAT Metered Dose Inhaler Stiolto Respimat 2.5 mcg-2.5 mcg/actuation solution for inhalation INHALE TWO PUFFS BY MOUTH EVERY DAY Stiolto Respimat 2.5 mcg-2.5 mcg/actuati on solution for inhalation INHALE TWO PUFFS BY MOUTH EVERY DAY completed olodaterol 0.0025 MG/ACTUAT / tiotropium 0.0025 MG/ACTUAT Inhalation [place] ([facility]) vitamin d 125 mcg (5000 ut) caps completed vitamin d 125 mcg (5000 ut) caps [place] ([facility]) Cefuroxime 500 MG Oral Tablet cefuroxime axetil 500 mg tablet TAKE ONE TABLET BY MOUTH EVERY 12 HOURS FOR 7 DAYS cefuroxime axetil 500 mg tablet TAKE ONE TABLET BY MOUTH EVERY 12 HOURS FOR 7 DAYS co mpleted cefuroxime 500 MG Oral Tablet [place] ([facility]) Cholecalciferol 5000 UNT Oral Capsule ch olecalciferol (vitamin D3) 125 mcg (5,000 unit) capsule TAKE ONE CAPSULE BY MOUTH EVERY DAY cholecalciferol (vitamin D3) 125 mcg (5,000 unit) capsule TAKE ONE CAPSULE BY MOUTH EVERY DAY completed cholecalcifero l 0.125 MG Oral Capsule [place] ([facility]) 60 ACTUAT Fluticasone propionate 0.25 MG /ACTUAT / salmeterol 0.05 MG/ACTUAT Dry Powder Inhaler fluticasone 250 mcg-salmeterol 50 mcg/dose blistr powdr for inhalation INHALE ONE PUFF BY MOUTH TWICE A DAY GARGLE WITH WATER AND RINSE MOUTH AFTER EVERY USE fluticasone 250 mcg-salmeterol 50 mcg/do se blistr powdr for inhalation INHALE ONE PUFF BY MOUTH TWICE A DAY GARGLE WITH WATER AND RINSE MOUTH AFTER EVERY USE completed 60 ACTUAT fluticasone propionate 0.25 MG/ACTUAT / salmeterol 0.05 MG/ACTUAT Dry Powder Inhaler [place] ([facility]) 60 ACTUAT Fluticasone propionate 0.25 MG /ACTUAT / salmeterol 0.05 MG/ACTUAT Dry Powder Inhaler fluticasone 250 mcg-salmeterol 50 mcg/dose blistr powdr for inhalation INHALE ONE PUFF BY MOUTH TWICE A DAY GARGLE WITH WATER AND RINSE MOUTH AFTER EVERY USE fluticasone 250 mcg-salmeterol 50 mcg/do se blistr powdr for inhalation INHALE ONE PUFF BY MOUTH TWICE A DAY GARGLE WITH WATER AND RINSE MOUTH AFTER EVERY USE completed 60 ACTUAT fluticasone propionate 0.25 MG/ACTUAT / salmeterol 0.05 MG/ACTUAT Dry Powder Inhaler [place] ([facility]) vitamin d3 25 mcg (1000 ut) tabs completed vitamin d3 25 mcg (1000 ut) tabs [place] ([facility]) 60 ACTUAT Fluticasone propionate 0.25 MG /ACTUAT / salmeterol 0.05 MG/ACTUAT Dry Powder Inhaler fluticasone 250 mcg-salmeterol 50 mcg/dose blistr powdr for inhalation INHALE ONE PUFF BY MOUTH TWICE A DAY GARGLE WITH WATER AND RINSE MOUTH AFTER EVERY USE fluticasone 250 mcg-salmeterol 50 mcg/do se blistr powdr for inhalation INHALE ONE PUFF BY MOUTH TWICE A DAY GARGLE WITH WATER AND RINSE MOUTH AFTER EVERY USE completed 60 ACTUAT fluticasone propionate 0.25 MG/ACTUAT / salmeterol 0.05 MG/ACTUAT Dry Powder Inhaler [place] ([facility]) albuterol sulfate HFA 90 mcg/actuation a erosol inhaler INHALE TWO PUFFS BY MOUTH THREE TIMES A DAY FOR 10 DAYS [id number] [facility] [id number] 200 ACTUAT albuterol 0.09 MG/ACTUAT Metered Dose Inhaler [place] ([facility]) Cefuroxime 500 MG Oral Tablet cefuroxime axetil 500 mg tablet TAKE ONE TABLET BY MOUTH EVERY 12 HOURS FOR 7 DAYS cefuroxime axetil 500 mg tablet TAKE ONE TABLET BY MOUTH EVERY 12 HOURS FOR 7 DAYS co mpleted cefuroxime 500 MG Oral Tablet [place] ([facility]) Sulfamethoxazole 800 MG / Trimethoprim 1 60 MG Oral Tablet sulfamethoxazole 800 mg-trimethoprim 160 mg tablet sulfamethoxazole 800 mg-trimethoprim 160 mg tablet completed sulfame thoxazole 800 MG / trimethoprim 160 MG Oral Tablet [place] ([facility]) NITROFURANTOIN, MACROCRYSTALS 25 MG / Ni trofurantoin, Monohydrate 75 MG Oral Capsule nitrofurantoin monohydrate/macrocrystals 100 mg capsule nitrofurantoin monohydrate/macrocrystals 100 mg capsule completed nitrofurantoin, macrocrystals 25 MG / nitrofurantoin, monohydrate 75 MG Oral Capsule [place] ([facility]) Cefuroxime 500 MG Oral Tablet cefuroxime axetil 500 mg tablet TAKE ONE TABLET BY MOUTH EVERY 12 HOURS FOR 7 DAYS cefuroxime axetil 500 mg tablet TAKE ONE TABLET BY MOUTH EVERY 12 HOURS FOR 7 DAYS co mpleted cefuroxime 500 MG Oral Tablet [place] ([facility]) Sulfamethoxazole 800 MG / Trimethoprim 1 60 MG Oral Tablet sulfamethoxazole 800 mg-trimethoprim 160 mg tablet sulfamethoxazole 800 mg-trimethoprim 160 mg tablet completed sulfame thoxazole 800 MG / trimethoprim 160 MG Oral Tablet [place] ([facility]) Ciprofloxacin 500 MG Oral Tablet ciprofloxacin 500 mg tablet ciprofloxacin 500 mg tablet completed ciprofloxaci n 500 MG Oral Tablet [place] ([facility]) vitamin d3 25 mcg (1000 ut) tabs completed vitamin d3 25 mcg (1000 ut) tabs [place] ([facility]) Azithromycin 250 MG Oral Tablet azithrom ycin 250 mg tablet TAKE TWO TABLETS BY MOUTH AT ONCE ON THE FIRST DAY THEN TAKE ONE DAILY THEREAFTER azithromycin 250 mg tablet TAKE TWO TABLETS BY MOUTH AT ONCE ON THE FIRST DAY THEN TAKE ONE DAILY THEREAFTER completed azithromyc in 250 MG Oral Tablet [place] ([facility]) olodaterol 0.0025 MG/ACTUAT / tiotropium 0.0025 MG/ACTUAT Metered Dose Inhaler Stiolto Respimat 2.5 mcg-2.5 mcg/actuation solution for inhalation INHALE TWO PUFFS BY MOUTH EVERY DAY Stiolto Respimat 2.5 mcg-2.5 mcg/actuati on solution for inhalation INHALE TWO PUFFS BY MOUTH EVERY DAY completed olodaterol 0.0025 MG/ACTUAT / tiotropium 0.0025 MG/ACTUAT Inhalation [place] ([facility]) Cholecalciferol 5000 UNT Oral Capsule ch olecalciferol (vitamin D3) 125 mcg (5,000 unit) capsule TAKE ONE CAPSULE BY MOUTH EVERY DAY cholecalciferol (vitamin D3) 125 mcg (5,000 unit) capsule TAKE ONE CAPSULE BY MOUTH EVERY DAY completed cholecalcifero l 0.125 MG Oral Capsule [place] ([facility]) albuterol sulfate HFA 90 mcg/actuation a erosol inhaler INHALE TWO PUFFS BY MOUTH THREE TIMES A DAY FOR 10 DAYS [id number] [facility] [place] [id number] 200 ACTUAT albuterol 0.09 MG/ACTUAT Metered Dose Inhaler [place] ([facility]) NITROFURANTOIN, MACROCRYSTALS 25 MG / Ni trofurantoin, Monohydrate 75 MG Oral Capsule nitrofurantoin monohydrate/macrocrystals 100 mg capsule nitrofurantoin monohydrate/macrocrystals 100 mg capsule completed nitrofurantoin, macrocrystals 25 MG / nitrofurantoin, monohydrate 75 MG Oral Capsule [place] ([facility]) olodaterol 0.0025 MG/ACTUAT / tiotropium 0.0025 MG/ACTUAT Metered Dose Inhaler Stiolto Respimat 2.5 mcg-2.5 mcg/actuation solution for inhalation INHALE TWO PUFFS BY MOUTH EVERY DAY Stiolto Respimat 2.5 mcg-2.5 mcg/actuati on solution for inhalation INHALE TWO PUFFS BY MOUTH EVERY DAY completed olodaterol 0.0025 MG/ACTUAT / tiotropium 0.0025 MG/ACTUAT Inhalation [place] ([facility]) albuterol sulfate HFA 90 mcg/actuation a erosol inhaler INHALE TWO PUFFS BY MOUTH THREE TIMES A DAY FOR 10 DAYS [id number] [facility] [place] [id number] 200 ACTUAT albuterol 0.09 MG/ACTUAT Metered Dose Inhaler [place] ([facility]) vitamin d 125 mcg (5000 ut) caps completed vitamin d 125 mcg (5000 ut) caps [place] ([facility]) Ciprofloxacin 500 MG Oral Tablet ciprofloxacin 500 mg tablet ciprofloxacin 500 mg tablet completed ciprofloxaci n 500 MG Oral Tablet [place] ([facility]) Insurance Providers Payer name Policy type / Coverage type Policy ID Covered libertarian ID Covered libertarian's relationship to bravo Policy Bravo Plan Information [facility] [id number] SP [id number] [facility] MCDHMO [id number] SP [id number] [facility]) O [id number] S [id number] Managed Care - [facility] Community Plan P [id number] S [id number] Medicaid S [id number] S [id number] MEDICAID [id number] SP [id number] Medicaid S [id number] S [id number] Managed Care - [facility] Community Plan P [id number] S [id number] Managed Care - [facility] P [id number] S [id number] UNHC AMERICHOICE XIX -HMO [id number] 18 [id number] Medicaid S [id number] S [id number] Managed Care - [facility] P [id number] S [id number] Medicaid S [id number] S [id number] Managed Care - [facility] P UNAVAILABLE S UNAVAILABLE ANSI-Medicaid [id number] UNHC COMMUNITY PLAN XIX [id number] 18 [id number] ANSI-Medicaid [id number] ANSI-Medicaid [id number] ANSI-Medicaid [id number] Managed Care BCBS P [id number] S [id number] Medicaid S [id number] S [id number] MEDICAID [id number] SP [id number] Problems, Conditions, and Diagnoses Code Display Name Description Problem Type Effective Dates Data Source(s) 13729636 Hypertensive disorder Hypertensive Disorder Problem 05/20/2020 06:26:16 PM EDT [place] ([facility]) [id number] Type 2 diabetes mellitus without complic ation Type 2 Diabetes Mellitus without Complication Problem 05/20/2020 06:26:16 PM EDT [place] ([facility]) 15259297 Hypertensive disorder Hypertensive Disorder Problem 05/20/2020 06:26:16 PM EDT [place] ([facility]) [id number] Type 2 diabetes mellitus without complic ation Type 2 Diabetes Mellitus without Complication Problem 05/20/2020 06:26:16 PM EDT [place] ([facility]) [id number] Hypertensive disorder Hypertensive Disorder Problem 05/20/2020 06:26:16 PM EDT [place] ([facility]) [id number] Type 2 diabetes mellitus without complic ation Type 2 Diabetes Mellitus without Complication Problem 05/20/2020 06:26:16 PM EDT [place] ([facility]) N21.0 Calculus of bladder Bladder stones Problem 01/19/2020 1 2:00:00 AM EDT [place] ([facility]) 595.0 Acute cystitis with hematuria Acute cystitis with patel turia 12/04/2019 03:16:39 PM EDT [facility] 788.1 Dysuria Dysuria 12/04/2019 03:16:39 PM ED T [facility] F17.210 Nicotine dependence, cigarettes, uncompl icated Nicotine dependence, cigarettes, uncomplicated 12/04/2019 03:16:39 PM EDT [facility] 93501406 Dysuria Dysuria Problem 12/04/2019 12:0 0:00 AM EDT - 06/10/2020 12:00:00 AM EST [place] ([facility]) [id number] Acute cystitis Acute Cystitis Problem 12/04/2019 12:00:00 AM EDT - 06/10/2020 12:00:00 AM EST [place] ([facility]) 71870957 Dysuria Dysuria Problem 12/04/2019 12:0 0:00 AM EDT - 06/10/2020 12:00:00 AM EST [place] ([facility]) 57014891 Acute cystitis Acute Cystitis Problem 12/04/2019 12:00:00 AM EDT - 06/10/2020 12:00:00 AM EST [place] ([facility]) 87469815 Dysuria Dysuria Problem 12/04/2019 12:0 0:00 AM EDT - 06/10/2020 12:00:00 AM EST [place] ([facility]) 46925330 Acute cystitis Acute Cystitis Problem 12/04/2019 12:00:00 AM EDT - 06/10/2020 12:00:00 AM [place]ONCIO [place] ([facility]) [id number] Pain in left foot Pain in Left Foot Problem 12:00:00 AM EDT - 06/10/2020 12:00:00 AM EST [place] ([facility]) [id number] Pain in left foot Pain in Left Foot Problem 12:00:00 AM EDT - 06/10/2020 12:00:00 AM EST [place] ([facility]) [id number] Pain in left foot Pain in Left Foot Problem 12:00:00 AM EDT - 06/10/2020 12:00:00 AM LEONCIO [place] ([facility]) 698070193 Tobacco use and exposure - finding Tobacco Use a nd Exposure - Finding Problem 10/22/2012 12:00:00 AM EDT - 06/10/2020 12:00:00 AM PABLO ANDERS[place] ([facility]) 830195386 Tobacco use and exposure - finding Tobacco Use a nd Exposure - Finding Problem 10/22/2012 12:00:00 AM EDT - 06/10/2020 12:00:00 AM [place]LO [place] ([facility]) 503626583 Tobacco use and exposure - finding Tobacco Use a nd Exposure - Finding Problem 10/22/2012 12:00:00 AM EDT - 06/10/2020 12:00:00 AM [place]LO [place] ([facility]) Results ID Date Data Source [id number] 06/10/2020 12:00:00 AM LEONCIO [place]ERS[place] ([facility]) Name Value Range Interpretation Code Description Data Kirstin rce(s) Supporting Document(s) Hemoglobin A1c/Hemoglobin.total in Blood A1C [place] ([facility]) ID Date Data Source [id number] 06/10/2020 12:00:00 AM LEONCIO [place]ERS[place] ([facility]) Name Value Range Interpretation Code Description Data Kirstin rce(s) Supporting Document(s) Hemoglobin A1c/Hemoglobin.total in Blood A1C [place] ([facility]) ID Date Data Source [id number] 06/10/2020 12:00:00 AM EST [place] ([facility]) Name Value Range Interpretation Code Description Data Kirstin rce(s) Supporting Document(s) Hemoglobin A1c/Hemoglobin.total in Blood A1C [place] ([facility]) ID Date Data Source [id number] 04/28/2020 08:35:00 AM EDT [facility] Name Value Range Interpretation Code Description Data Kirstin rce(s) Supporting Document(s) HCT 49.6 % 42.0-52.0 N [facility] HGB 15.9 g/dL 13.5-17.5 N [facility] MCH 32.1 G/DL pg 32.0-36.5 N [facility] MCHC 31.5 PG % 27.0-33.0 N [facility] PLATELETS 308 10 10*3/mm3 150-450 N [facility] RBC 5.05 10 10*6/mm3 4.30-6.10 [facility] RDW 13.3 % 11.5-14.5 [facility] WBC TOTAL 12.1 4.0-10.0 H [facility] ID Date Data Source [id number] 04/28/2020 08:35:00 AM EDT [facility] Name Value Range Interpretation Code Description Data Kirstin rce(s) Supporting Document(s) VIT D25 TOT 32.9 ng/mL 30.0-100.0 N [facility] BG FASTING 124 mg/dL 70-100 H [facility] T4, FREE 0.91 ng/dL 0.76-1.46 N [facility] TSH 0.792 microintl units/mL 0.358-3.740 N [facility] ID Date Data Source [id number] 04/28/2020 08:35:00 AM EDT [facility] Name Value Range Interpretation Code Description Data Kirstin rce(s) Supporting Document(s) HGBA1C 6.8 % N [facility] ID Date Data Source [id number] 04/28/2020 12:00:00 AM EDT [facility]) Name Value Range Interpretation Code Description Data Kirstin rce(s) Supporting Document(s) Cholesterol in LDL [Mass/volume] in Serum or Plasma Ldl [facility]) ID Date Data Source [id number] 04/28/2020 12:00:00 AM EDT [facility]) Name Value Range Interpretation Code Description Data Kirstin rce(s) Supporting Document(s) Cholesterol in LDL [Mass/volume] in Serum or Plasma Ldl [facility]) ID Date Data Source [id number] 04/28/2020 12:00:00 AM EDT [facility]) Name Value Range Interpretation Code Description Data Kirstin rce(s) Supporting Document(s) Cholesterol in LDL [Mass/volume] in Serum or Plasma Ldl [facility]) ID Date Data Source [id number] 12/04/2019 03:10:00 PM EDT [facility] Name Value Range Interpretation Code Description Data Kirstin rce(s) Supporting Document(s) URINECULTRTN NO GROWTH CLINICAL SIGNIFICANCE 1 ORGANISM N [facility] ID Date Data Source [id number] 12/04/2019 02:32:03 PM EDT [facility] Measurements & CalculationsHeight: 66 inches 167.64 cm Weight: 248.6 pounds 113 kg Body Mass Index (BMI): 40.27BMI Interpretation: Morbidly ObeseBody Surface Area (BSA): 2.20Weight Management Education Done (Nutrition/Physical Activity)Vital SignsTemperature: 96.2F 35.67C tympanic Pulse Rate: 85 beats/minuteRespiratory Rate: 16 respirations/minuteBlood Pressure: 122/84 left arm sitting automaticVital Signs performed by: Radha Jim , December 04, 2019 2:33 PMLabs In-House Urine Te stsDate/Time Collected: December 04, 2019 3:22 PMDate/Time Received: December 04, 2019 3:22 PMTest Result Reference Range Normal ValueRoutine Urinalysis Color: yellow Yellow Appearance: clear Clear Leukocytes: 2+ Negative Nitrite: negative Negative Urobilinogen: negative Negative Protein: 1+ Negative pH: 7.0 5.0-6.5 Blood: 1+ Negative Specific [place]: 1.015 1.020>=1.030 Ketone: negative Negative Bilirubin: negative Negative Glucose: negative NegativeRadha Jim , December 04, 2019 3:22 PMMultiple Vital SignsInitial BP: 149/89Vitals #2BP: 122/84 (primary)Performed by: Antione MARSHALL, December 04, 2019 3:09 PMInitial Intake Information From: patientRoom #: 1Infectious Disease / Travel ScreeningRecent travel for you or any close contacts? NoHave you had any close contact with anyone diagnosed with or under investigation for COVID-19 (coronavirus)? NoFever? NoRespiratory symptoms: cough, cold, congestion, shortness of breath, difficulty breathing? NoLoss of smell? NoLoss of taste? NoSmoking, Tobacco, Vaping or Smoke Exposure StatusSmoke Status: current every day smokerTobacco Use: YesAdv to Quit: YesDo you vape? NoPassive Smoke Exposure: YesHealthcare HistorySince your last office visit...Have you been admitted to the hospital? NoHave you been to an emergency room (ER) or urgent care clinic? NoHave you seen another healthcare provider? NoHave you seen a dentist? Yes - pulled all but 2 teethIntake performed by: Radha Jim , December 04, 2019 2:34 PMRate Your HealthIn general, would you say your health is? GoodPain AssessmentAre you currently having any pain which... You would like your provider to address? No Affects your activity level? NoDepression Screening - PHQ-2Over the last two weeks, have you... Had little interest or pleasure in doing things? Not at all Been feeling down, depressed, or hopeless? Not at all PHQ-2 Score: 0Anxiety Screening - LARISA-2Over the last two weeks, have you been... Feeling nervous, anxious, or on edge? Not at all Unable to stop or control worrying? Not at all LARISA-2 Score: 0Food InsecurityWithin the past year...Did you worry whether your food would run out before you got money to buy more? NoWas there a time when the food you bought didn't last and you didn't have money to get more? NoNurses Note need new glucose testing machine-one patient has brokeScreening, Brief Intervention, & Referral to Treatment (SBIRT)Pre-Screening Questions How many times have you have 5 or more drinks in a day? 0How many times have you used an illegal drug or used a prescription medication for a non-medical reason? 0Performed by: Radha Jim , December 04, 2019 2:35 PMPatient History Medical History:Diabetes, Type 2HypertensionHyperlipidemiaSurgical History:Unremarkablecyst removal left elbow 20 yrs agoFamily History:Family History of AlcoholismFamily History of AsthmaFH DiabetesFH Heart DiseaseFH HypertensionFH High CholesterolFH Kidney DiseaseFH Lung/Respiratory DiseaseFH StrokeFamily History of AnginaFamily History Coronary Heart Disease male < 55fh cancer(father and brother from cancer)Social/Personal History: Advised to Quit/Tobacco Education: YesChief Complaintlabs/hurts with urination x 2 weeks-strong odor /frequent urinatioinHistory of Present Illness (HPI)Pt is a 44 y/o male, presents for repeat routine labs.Pt has T2DM, but does not have testing supplies currently. A1c in 07/2019 was 6.9. Requests refills for BIPAP supplies, mask and tubing, to [facility], states his current supplies have a hole in the tubing. Pt also has COPD, pt doesn't see pulmonology, feels the Stiolto is not effective. He has never had other inhalers. Continues to smoke 1.5PPD and is not interested in quitting. UTI symptoms x 7 days. Reports burning and foul odor to the urine. Denies fever, hematuria, flank pain. Denies hx of UTIs. HPI performed by: Antione MARSHALL, December 04, 2019 2:46 PMTransitions of Care InboundProblem ReviewProblem List was reviewed and/or updated during this visit.Medication Reconciliation & ReviewMedication List was reviewed and/or updated during this visit, including review of any [id number]-shveexq medications, herbal therapies, and/or supplements.Allergy ReviewAllergy List was reviewed and/or updated during this visit.Adult Preventive CareProvider Calculated and Reviewed all Clinical Protocols for patient today. Screening Tobacco Screening: Smoking Status: current every day smoker (12/04/2019) Tobacco Use: Currently (12/04/2019) Advised to Quit: Yes (12/04/2019)Labs/Meds/Other Counseling-Nutrition and Physical Activity:BMI Interpretation: Morbidly Obese (12/04/2019) Counseling: Done (12/04/2019) Physical Activity: Done (12/04/2019)Review of Systems General: Denies loss of appetite, chills, dizziness, fatigue, fever, headache, feeling ill. Cardiovascular: Denies chest pain, palpitations, feeling faint, peripheral edema, elevated blood pressure. Respiratory: Complains of see HPI, shortness of breath, wheezing. Denies cough, excessive sputum, coughing up blood. Gastrointestinal: Denies nausea, vomiting, diarrhea, constipation, pain or discomfort. Genitourinary: Complains of pain with urination, burning with urination. Denies urinary frequency, urinary hesitancy, urinary urgency, incomplete emptying, blood in urine, painful intercourse, penile discharge, penile sores. Skin: Denies rash, redness, itching, suspicious lesions. Neurologic: Denies feeling faint. Psychiatric: Denies depression, anxiety. Physical ExamGeneral Appearance: well nourished, well hydrated, no acute distress, obese maleRespiratory, Auscultation: good air movement, scattered wheezes that clear with cough, no rales, no rhonchiCardiovascular, Auscultation: S1, S2 audible; no murmur, rub, or gallop; RRRPeripheral Circulation: no clubbing, cyanosis, edema, or varicositiesAbdomen: soft, non-tender, no masses, bowel sounds normalGait & Station: normalSkin, Inspection: no rashes, lesions, or ulcerationsOrientation: oriented to time, place, and personMood & Affect: no depression, anxiety, or agitationJudgment & Insight: intactCare Management Plan Transitions of CareInboundRate Your HealthIn general, would you say your health is? GoodAssessment & Plan Problems:Added: Dysuria (ICD-788.1) (QRX89-Y80.0)Acute cystitis with hematuria (ICD-595.0) (ZQV64-N68.01) Assessment: Instructions: Take antibiotics as prescribed, finish full course even if symptoms resolve. Antibiotics may cause stomach upset, recommend eating yogurt or taking probiotic while on antibiotics. Stay well hydrated, urinate often, empty bladder fully. Urinate within 1 hour after intercourse.Changed:From: Dx of NONDEPENDENT TOBACCO USE DISORDER (ICD-305.1) (AIU98-M04.0) To: Nicotine dependence, cigarettes, uncomplicated (GGH70-Q09.210)Assessed:DIABETES, TYPE 2 (ICD-250.00) (VNE28-V13.9) Assessment: Instructions: Update labs as ordered. Recommend low carbohydrate diet: reduce pasta, bread, potatoes, rice. If you do eat carbohydrates, better choices are whole wheat and brown rice products. Recommend portion control and avoidance of soda and sugary foods. Increase physical activity and monitor weight. Recommend annual evaluation of eye and foot health, either here or with a specialist office. Monitor blood sugars at home and call with any concerns.HYPERTENSION (ICD-401.9) (DFT40-W30) Assessment: Instructions: BP elevated today. Recommend reduced salt intake, cut back on caffeine and alcohol, increase physical activity. We reviewed the termite exterminator helper risks associated with uncontrolled high blood pressure, including stroke and heart attack. Goal BP is <140/90, please call the office if your blood pressures are consistently running higher than that cutoff. Call 911 or report to the closest ER for chest pain, shortness of breath, dizziness, or passing out.NONDEPENDENT TOBACCO USE DISORDER (ICD-305.1) (RHR28-R42.0) Assessment: Patient is not interested in cessation or reduction. Instructions: Smoking cessation counseling was recommended with patient today.Nicotine depen dence, cigarettes, uncomplicated (YSR45-U75.210) Assessment: Patient is not interested in cessation or reduction. Instructions: Smoking cessation counseling was recommended with patient today.OBSTRUCTIVE SLEEP APNEA (ICD- 327.23) (FOF56-E24.33) Assessment: Instructions: Will fax supply request to SteveChronic obstructive pulmonary disease, unspecified (AVG91-U12.9) Assessment: Instructions: Stop Stiolto, switch to Advair (or alternative as approved by insurance). Smoking cessation counseling was recommended with patient today.HYPERLIPIDEMIA (ICD-272.4) (KJX72-T14.5) Assessment: I nstructions: Recommend healthy lifestyle modification. Encourage portion control, healthy food choices, and increasing routine physical activity. Recommendation is for 150 minutes throughout the week of cardiovascular exercise.Removed:ESSENTIAL HYPERTENSION (ICD-401.9) ([id number])Assessment not Saved OBSTRUCTIVE SLEEP APNEA (VSP99-Y55.33): Patient Instructions/Care Plan: DIABETES- TYPE 2: Update labs as ordered. Recommend low carbohydrate diet: reduce pasta, bread, potatoes, rice. If you do eat carbohydrates, better choices are whole wheat and brown rice products. Recommend portion control and avoidance of soda and sugary foods. Increase physical activity and monitor weight. Recommend annual evaluation of eye and foot health, either here or with a specialist office. Monitor blood sugars at home and call with any concerns.HYPERTENSION: BP elevated today. Recommend reduced salt intake, cut back on caffeine and alcohol, increase physical activity. We reviewed the penitentiary risks associated with uncontrolled high blood pressure, including stroke and heart attack. Goal BP is <140/90, please call the office if your blood pressures are consistently running higher than that cutoff. Call 911 or report to the closest ER for chest pain, shortness of breath, dizziness, or passing out.NONDEPENDENT TOBACCO USE DISORDER: Smoking cessation counseling was recommended with patient today.Nicotine dependence- cigarettes- uncomplicated: Smoking cessation counseling was recommended with patient today.OBSTRUCTIVE SLEEP APNEA: Will fax supply request to Robert.Chronic obstructive pulmonary di sease- unspecified: Stop Stiolto, switch to Advair (or alternative as approved by insurance). Smoking cessation counseling was recommended with patient today.Acute cystitis with hematuria: Take antibiotics as prescribed, finish full course even if symptoms resolve. Antibiotics may cause stomach upset, recommend eating yogurt or taking probiotic while on antibiotics. Stay well hydrated, urinate often, empty bladder fully. Urinate within 1 hour after intercourse.HYPERLIPIDEMIA: Recommend healthy lifestyle modification. Encourage portion control, healthy food choices, and increasing routine physical activity. Recommendation is for 150 minutes throughout the week of cardiovascular exercise. Plan developed in collaboration with patient and/or familyMedications:LANCETSBLOOD GLUCOSE TEST IN VITRO STRIPBLOOD GLUCOSE MONITOR SYSTEM W/DEVICE KITQC VITAMIN D3 25 MCG (1000 UT) ORAL CAPSULEMELOXICAM 7.5 MG ORAL TABLETONETOUCH ULTRA BLUE IN VITRO STRIPONETOUCH ULTRA 2 W/DEVICE KITBIPAP MACHINE WITH MASK AND TUBINGGNP ISOPROPYL ALCOHOL WIPES 70 % EXTERNALTRAZODONE HCL 50 MG ORAL TABLETASPIR-81 81 MG ORAL TABLET DELAYED RELEASELISINOPRIL 10 MG ORAL TABLETADVAIR DISKUS 250-50 MCG/DOSE INHALATION AEROSOL POWDER BREATH ACTIVATEDDIALYVITE VITAMIN D 5000 5000 UNIT ORAL CAPSULEONETOUCH DELICA LANCETS FINEATORVASTATIN CALCIUM 20 MG ORAL TABLETMETFORMIN HCL ER (MOD) 500 MG ORAL TABLET EXTENDED RELEASE 24 HOURACTOS 15 MG ORAL TABLETMedication Changes:Refilled:ADVAIR DISKUS 250-50 MCG/DOSE INHALATION AEROSOL POWDER BREATH ACTIVATED-1 oral inhalation BID; gargle with water and rinse mouth after every use Qty: 1[Inhaler] Refills: 5 Method: Electronic* BIPAP MACHINE WITH MASK AND TUBING-UAD for obstructive sleep apnea. Continue current pressure settings. Qty: 1 Refills: 0 Method: Print then Fax to Pharmacy* BIPAP MACHINE WITH MASK AND TUBING-nightly while sleeping for obstructive sleep apnea, continue current pressure settings; mask, tubing, supplies refill Qty: 1 Refills: 3 Method: Print then Give to PatientNew Prescription:BLOOD GLUCOSE MONITOR SYSTEM W/DEVICE KIT-Test fasting blood sugar once daily and prn Qty: 1[Kit] Refills: 0 Method: ElectronicBLOOD GLUCOSE TEST IN VITRO STRIP-Test fasting blood sugar once daily and prn Qty: 100[Strip] Refills: 3 Method: ElectronicLANCETS-Test fasting blood sugar once daily and prpn Qty: 100[Lancet] Refills: 3 Method: ElectronicMACROBID 100 MG ORAL CAPSULE-Take 1 capsule po BID Qty: 14[Capsule] Refills: 0 Method: ElectronicRemoved:CHANTIX STARTING MONTH ESTHER 0.5 MG X 11 & 1 MG X 42 ORAL TABLET-as directedChanged:From: INHALATION STIOLTO RESPIMAT 2.5-2.5 MCG/ACT INHALATION AEROSOL SOLUTION Qty: [id number] Refills: 1[Inhaler] To: ADVAIR DISKUS 250-50 MCG/DOSE INHALATION AEROSOL POWDER BREATH ACTIVATED-1 oral inhalation BID; gargle with water and rinse mouth after every use Qty: 1[Inhaler] Refills: 5 To: * BIPAP MACHINE WITH MASK AND TUBING-nightly while sleeping for obstructive sleep apnea, continue current pressure settings; mask, tubing, supplies refill Qty: 1 Refills: 3Allergies:PCN (Severe)Orders:HgBA1c [CPT-55432] COMP METABOLIC PANEL [CPT-54382] COMP METABOLIC PANEL [CPT-86838] CBC W/DIFF [CPT-29697] HgBA1c [CPT-54327] LIPID PANEL [CPT-68441] TSH [CPT- 56317] T-4 free [CPT-09491] Vitamin D 250H Unspecified [CPT-92764] Urine Culture & Sensitivity [CPT-34859] Adult - Ofc Vst, EST, Level III [CPT-67127] Follow-Up Return to clinic: in 90 days for follow upAdditional Follow-Up: T2DM, HTNClinical Visit Summary CompletedMedications:BIPAP MACHINE WITH MASK AND TUBING nightly while sleeping for obstructive sleep apnea, continue current pressure settings; mask, tubing, supplies refill #1 x 3 Entered and Authorized by: Antione MARSHALL Method used: Print then Give to Patient RxID: [id number] MACHINE WITH MASK AND TUBING UAD for obstructive sleep apnea. Continue current pressure settings. #1 x 0 Entered and Authorized by: Antione MARSHALL Method used: Printed then faxed to ... [facility] [employer] [address] [place] [address] Ph: [phone] Indications: OBSTRUCTIVE SLEEP APNEA RxID: [id number] 100 MG ORAL CAPSULE (NITROFURANTOIN MONOHYD MACRO) Take 1 capsule po BID #14[Capsule] x 0 Route:ORAL Entered and Authorized by: Antione MARSHALL Method used: Electronically to [facility] (retail) [address] [place] [address] Note to Pharmacy: Route: ORAL; Indications: DYSURIA RxID: [id number] DISKUS 250-50 MCG/DOSE INHALATION AEROSOL POWDER BREATH ACTIVATED (FLUTICASONE- SALMETEROL) 1 oral inhalation BID; gargle with water and rinse mouth after every use #1[Inhaler] x 5 Route:INHALATION Entered and Authorized by: Antione MARSHALL Method used: Electronically to [facility] (retail) [address] [place] [address] Note to Pharmacy: Route: INHALATION; Indications: CHRONIC OBSTRUCTIVE PULMONARY DISEASE, UNSPECIFIED;NICOTINE DEPENDENCE, CIGARETTES, UNCOMPLICATED RxID: [id number] (LANCETS) Test fasting blood sugar once daily and prpn #100[Lancet] x 3 Entered and Authorized by: Antione MARSHALL Method used: Electronically to [facility] (retail) [address] [place] [address] Indications: DIABETES, TYPE 2 RxID: [id number] GLUCOSE TEST IN VITRO STRIP (GLUCOSE BLOOD) Test fasting blood sugar once daily and prn #100[Strip] x 3 Route:IN VITRO Entered and Authorized by: Antione MARSHALL Method used: Electronically to [facility] (retail) [address] [place] [address] Note to Pharmacy: Route: IN VITRO; Indications: DIABETES, TYPE 2 RxID: [id number] GLUCOSE MONITOR SYSTEM W/DEVICE KIT (BLOOD GLUCOSE MONITORING SUPPL) Test fasting blood sugar once daily and prn #1[Kit] x 0 Entered and Authorized by: Antione MARSHALL Method used: Electronically to [facility] (retail) [address] [place] [address] Indications: DIABETES, TYPE 2 RxID: [id number] signed by Antione MARSHALL on 12/12/2019 at 1:07 PM Name Value Range Interpretation Code Description Data Kirstin rce(s) Supporting Document(s) ID Date Data Source [id number] 12/04/2019 02:32:03 PM EDT [facility] Name Value Range Interpretation Code Description Data Kirstin rce(s) Supporting Document(s) [facility]ARANCE [facility] BLOOD UR DIP 1+ [facility] GLUCOSE, URN negative [facility] KETONES URN negative [facility] NITRITE URN negative [facility] PH URINE 7.0 [facility] PROTEIN, URN 1+ [facility] SPEC GR URIN 1.015 [facility] UA COLOR yellow [facility] UROBILINOGEN negative [facility] WBC DIPSTK U 2+ [facility] ID Date Data Source [id number] 08/04/2019 09:50:38 AM EST [facility] In-House Blood TestsDate/Time Colle cted: August 04, 2019 9:50 AMTest Result Reference Range Normal ValueComments: blood draw done in offcie done in the left ac tolerated well Matteo Florian LEWIS, August 04, 2019 9:51 AMAssessment & Plan Orders:[id number] Vst-Est Level I [CPT-71081] 77411 - Venipuncture [CPT-59824] Name Value Range Interpretation Code Description Data Kirstin rce(s) Supporting Document(s) ID Date Data Source [id number] 08/04/2019 05:31:00 AM EST [facility] Name Value Range Interpretation Code Description Data Kirstin rce(s) Supporting Document(s) BG FASTING 128 mg/dL 70-100 H [facility] ID Date Data Source [id number] 08/04/2019 05:31:00 AM EST [facility] Name Value Range Interpretation Code Description Data Kirstin rce(s) Supporting Document(s) HGBA1C 6.9 % N [facility] Procedure Vital Signs ID Date Data Source UNK Name Value Range Interpretation Code Description Data Source(s) Body weight 4374.4 [oz_av] 4374.4 [oz_av] ATHEN A ([facility]) Systolic blood pressure 143 mm[Hg] 143 mm[Hg] A THENA ([facility]) Body mass index (BMI) [Ratio] 44.1 kg/m2 44.1 k g/m2 NATHALY ([facility]) Body height 66 [in_i] 66 [in_i] NATHALY ([facility]) Diastolic blood pressure 82 mm[Hg] 82 mm[Hg] NATHALY ([facility]) Body height 66 [in_i] 66 [in_i] NATHALY ([facility]) Body height 66 [in_i] 66 [in_i] NATHALY ([facility]) Body weight 4211 [oz_av] 4211 [oz_av] NATHALY ([facility]) Systolic blood pressure 122 mm[Hg] 122 mm[Hg] A THENA ([facility]) Body mass index (BMI) [Ratio] 42.5 kg/m2 42.5 k g/m2 NATHALY ([facility]) Body height 66 [in_i] 66 [in_i] NATHALY ([facility]) Diastolic blood pressure 79 mm[Hg] 79 mm[Hg] NATHALY ([facility]) Body weight 4211 [oz_av] 4211 [oz_av] NATHALY ([facility]) Systolic blood pressure 122 mm[Hg] 122 mm[Hg] A THENA ([facility]) Body mass index (BMI) [Ratio] 42.5 kg/m2 42.5 k g/m2 NATHALY ([facility]) Body height 66 [in_i] 66 [in_i] NATHALY ([facility]) Diastolic blood pressure 79 mm[Hg] 79 mm[Hg] NATHALY ([facility]) Body weight 4211 [oz_av] 4211 [oz_av] NATHALY ([facility]) Systolic blood pressure 122 mm[Hg] 122 mm[Hg] A THENA ([facility]) Body mass index (BMI) [Ratio] 42.5 kg/m2 42.5 k g/m2 NATHALY ([facility]) Body height 66 [in_i] 66 [in_i] NATHALY ([facility]) Diastolic blood pressure 79 mm[Hg] 79 mm[Hg] NATHALY ([facility]) Diastolic blood pressure 80 mm[Hg] 80 mm[Hg] eCW1 ([facility]) Systolic blood pressure 138 mm[Hg] 138 mm[Hg] e CW1 ([facility]) Body temperature 97.9 [degF] 97.9 [degF] eCW1 ( [facility]) Respiratory rate 18 /min 18 /min eCW1 ([facility]) Heart rate 92 /min 92 /min eCW1 ([facility]) Body mass index (BMI) [Ratio] 41.93 kg/m2 41.93 kg/m2 eCW1 ([facility]) Body height 65 [in_i] 65 [in_i] eCW1 ([facility]) Body weight 252 [lb_av] 252 [lb_av] eCW1 ([facility]) Body weight 3977.6 [oz_av] 3977.6 [oz_av] ATHEN A ([facility]) Systolic blood pressure 122 mm[Hg] 122 mm[Hg] A [facility] ([facility]) Body height 66 [in_i] 66 [in_i] NATHALY ([facility]) Diastolic blood pressure 84 mm[Hg] 84 mm[Hg] NATHALY ([facility]) Body weight 3977.6 [oz_av] 3977.6 [oz_av] ATHEN A ([facility]) Systolic blood pressure 122 mm[Hg] 122 mm[Hg] A [facility] ([facility]) Body height 66 [in_i] 66 [in_i] NATHALY ([facility]) Diastolic blood pressure 84 mm[Hg] 84 mm[Hg] NATHALY ([facility]) Body weight 3977.6 [oz_av] 3977.6 [oz_av] ATHEN A ([facility]) Systolic blood pressure 122 mm[Hg] 122 mm[Hg] A [facility] ([facility]) Body height 66 [in_i] 66 [in_i] NATHALY ([facility]) Diastolic blood pressure 84 mm[Hg] 84 mm[Hg] NATHALY ([facility]) Patient Treatment Plan of Care Planned Activity Planned Date Details Description Data Source (s) Sulfamethoxazole 800 MG / Trimethoprim 160 MG Oral Tab let [Bactrim] 01/19/2020 12:00:00 AM EDT eCW1 ([facility]) Sulfamethoxazole 800 MG / Trimethoprim 160 MG Oral Tab let [Bactrim] 01/19/2020 12:00:00 AM EDT eCW1 ([facility]) vitamin d 125 mcg (5000 ut) caps NATHALY ([facility]) Trazodone Hydrochloride 50 MG Oral Tablet NATHALY ([facility]) Sulfamethoxazole 800 MG / Trimethoprim 160 MG Oral Tablet NATHALY ([facility]) olodaterol 0.0025 MG/ACTUAT / tiotropium 0.0025 MG/ACT UAT Metered Dose Inhaler NATHALY ([facility]) NITROFURANTOIN, MACROCRYSTALS 25 MG / Ni trofurantoin, Monohydrate 75 MG Oral Capsule NATHALY ([facility]) 60 ACTUAT Fluticasone propionate 0.25 MG /ACTUAT / salmeterol 0.05 MG/ACTUAT Dry Powder Inhaler NATHALY ([facility]) Ciprofloxacin 500 MG Oral Tablet NATHALY ([facility]) Cholecalciferol 5000 UNT Oral Capsule NATHALY ([facility]) Cefuroxime 500 MG Oral Tablet NATHALY ([facility]) Azithromycin 250 MG Oral Tablet NATHALY ([facility]) albuterol sulfate HFA 90 mcg/actuation a erosol inhaler INHALE TWO PUFFS BY MOUTH THREE TIMES A DAY FOR 10 DAYS A THENA ([facility]) vitamin d3 25 mcg (1000 ut) tabs NATHALY ([facility]) vitamin d 125 mcg (5000 ut) caps NATHALY ([facility]) Trazodone Hydrochloride 50 MG Oral Tablet NATHALY ([facility]) olodaterol 0.0025 MG/ACTUAT / tiotropium 0.0025 MG/ACT UAT Metered Dose Inhaler NATHALY ([facility]) NITROFURANTOIN, MACROCRYSTALS 25 MG / Ni trofurantoin, Monohydrate 75 MG Oral Capsule NATHALY ([facility]) 60 ACTUAT Fluticasone propionate 0.25 MG /ACTUAT / salmeterol 0.05 MG/ACTUAT Dry Powder Inhaler NATHALY ([facility]) Ciprofloxacin 500 MG Oral Tablet NATHALY ([facility]) Cholecalciferol 5000 UNT Oral Capsule NATHALY ([facility]) Cefuroxime 500 MG Oral Tablet NATHALY ([facility]) Azithromycin 250 MG Oral Tablet NATHALY ([facility]) albuterol sulfate HFA 90 mcg/actuation a erosol inhaler INHALE TWO PUFFS BY MOUTH THREE TIMES A DAY FOR 10 DAYS A THENA ([facility]) vitamin d3 25 mcg (1000 ut) tabs NATHALY ([facility]) vitamin d 125 mcg (5000 ut) caps NATHALY ([facility]) Trazodone Hydrochloride 50 MG Oral Tablet NATHALY ([facility]) Sulfamethoxazole 800 MG / Trimethoprim 160 MG Oral Tablet NATHALY ([facility]) olodaterol 0.0025 MG/ACTUAT / tiotropium 0.0025 MG/ACT UAT Metered Dose Inhaler NATHALY ([facility]) NITROFURANTOIN, MACROCRYSTALS 25 MG / Ni trofurantoin, Monohydrate 75 MG Oral Capsule NATHALY ([facility]) 60 ACTUAT Fluticasone propionate 0.25 MG /ACTUAT / salmeterol 0.05 MG/ACTUAT Dry Powder Inhaler NATHALY ([facility]) Ciprofloxacin 500 MG Oral Tablet NATHALY ([facility]) Cholecalciferol 5000 UNT Oral Capsule NATHALY ([facility]) Cefuroxime 500 MG Oral Tablet NATHALY ([facility]) Azithromycin 250 MG Oral Tablet NATHALY ([facility]) albuterol sulfate HFA 90 mcg/actuation a erosol inhaler INHALE TWO PUFFS BY MOUTH THREE TIMES A DAY FOR 10 DAYS A THENA ([facility])
--- NOTE | 2020-10-01 16:07 | REP ---
INDICATION: pain after fall. COMPARISON: Comparison radiographs of the left ankle March 25, 2019.. TECHNIQUE: Four views of the left ankle. FINDINGS: Four views of the left ankle demonstrate anterolateral soft tissue swelling. No acute fracture is seen. Plantar calcaneal spurring is noted. Ankle mortise is intact. On the lateral radiograph, there is old post traumatic hypertrophy and irregularity of the distal tibial cortex posteriorly. This is unchanged from the March 25, 2019 study. No acute abnormality is seen. IMPRESSION: No acute fracture or subluxation. Old posttraumatic changes distal tibia posteriorly. Plantar heel spur. Anterolateral soft tissue swelling. <Electronically signed by Trevor Woodard > 10/01/20 [id number]
--- OUTSIDE RECORDS SUMMARY | 2020-10-01 16:16 | CCD ---
Author Author [facility] Organization [facility] Address Unknown Phone Unavailable Support Name Relationship Address Phone Antione Medel Next Of Kin [address] [place] [address] JAYNE HERNANDEZ Next Of Kin [address] [place] [phone] Guillermina Lopez Next Of Kin [address] [place] [address] Erwin Haynes MD Next Of Kin [address] [place] [address] SABAS HERNANDEZ Next Of Kin [address] [facility] [address] [place] [address] SABAS JONES Next Of Kin [address] [facility] [address] [place] [address] [place] GUERRERO Next Of Kin 232 [facility] [address] [place] [address] CELL CHAD BARILLAS Next Of Kin [address] [facility] [address] [place] [phone] NONE, PT PER Next Of Kin - -, - - - Stefany BARILLAS Next Of Kin [address] [place] [phone] CELL LYLE HAYS Next Of Kin [address] [place] [address] Gustavo HAYS Next Of Kin [address] [place] [address] UE Next Of Kin Unknown Unavailable DISABLED Next Of Kin Unknown Unavailable Kirsten PEARSON Next Of Kin [address] [place] [id number] UN Next Of Kin Unknown Unavailable RUSLAN GUERRERO SR Of Kin [facility] [place] [address] [address] [place] [address] CELL YOLANDA [place] [address] CELL Sabas Hernandez ECON [address] [place] [address] Unavailable Care Team Providers Care Cougar Hunter Name Role Phone RAMEY, ASHLEY ANTIONE RPA-C [...] Unavailable RAMEY, ASHLEY ANTIONE RPA-C Unavailable Unavailable ARMEY, ASHLEY ANTIONE RPA-C Unavailable Unavailable RAMEY, ASHLEY [...] MD Unavailable Unavailable HaynesGiselle MD Unavailable Unavailable Almeida, Guillermina WELDER ASSEMBLER WELDER ASSEMBLER Unavailable Unavailable Almeida, F Guillermina WELDER ASSEMBLER-BC Unavailable Unavailable Almeida, F Guillermina WELDER ASSEMBLER-BC Unavailable Unavailable Almeida, F Guillermina WELDER ASSEMBLER-BC Unavailable Unavailable Almeida, F Guillermina WELDER ASSEMBLER-BC Unavailable Unavailable Almeida, F Guillermina WELDER ASSEMBLER-BC Unavailable Unavailable Almeida, F Guillermina WELDER ASSEMBLER-BC Unavailable Unavailable Almeida, F Guillermina WELDER ASSEMBLER-BC Unavailable Unavailable Almeida, F Guillermina WELDER ASSEMBLER-BC Unavailable Unavailable Almeida, F Guillermina WELDER ASSEMBLER-BC Unavailable Unavailable Almeida, F Guillermina WELDER ASSEMBLER-BC Unavailable Unavailable Almeida, F Guillermina WELDER ASSEMBLER-BC Unavailable Unavailable Almeida, F Guillermina WELDER ASSEMBLER-BC Unavailable Unavailable Almeida, F Guillermina WELDER ASSEMBLER-BC Unavailable Unavailable Almeida, F Guillermina WELDER ASSEMBLER-BC Unavailable Unavailable Almeida, F Guillermina WELDER ASSEMBLER-BC Unavailable Unavailable Almeida, F Guillermina WELDER ASSEMBLER-BC Unavailable Unavailable Almeida, F Guillermina WELDER ASSEMBLER-BC Unavailable Unavailable Almeida, F Guillermina WELDER ASSEMBLER-BC Unavailable Unavailable Almeida, F Guillermina WELDER ASSEMBLER-BC Unavailable Unavailable Almeida, F Guillermina WELDER ASSEMBLER-BC Unavailable Unavailable Almeida, F Guillermina WELDER ASSEMBLER-BC Unavailable Unavailable Almeida, F Guillermina WELDER ASSEMBLER-BC Unavailable Unavailable RAMEY, ASHLEY ANTIONE RPA-C Unavailable Unavailable RAMEY, ASHLEY ANTIOEN RPA-C Unavailable Unavailable RAMEY, ASHLEY ANTIONE RPA-C [...] is protected by Article 27-F of the [facility] Public Health law. If you continue you may have access to information: Regarding HIV / AIDS; Provided by facilities licensed or operated by the [facility] Office of Mental Health; or Provided by the [facility] Office for People With Developmental Disabilities. If such information is present, then the following [facility] mandated warning applies: This information has [...] law may result in a fine or fci sentence or both. A general authorization for the release of medical or other information is NOT sufficient authorization for further disc losure. Allergies and Adverse Reactions Type Description Substance Reaction Status Data Source(s ) Allergy to substance Allergy to substance Allergy to substance BANDY ([facility]) Encounters Encounter Providers Location Date Indications Data Source(s ) Erwin Haynes MD: [address] [facility], [address], [place] [address], Ph. Attender: Erwin Haynes MD [facility] Medical 09/01/2020 12:00:00 AM EST NATHALY ([facility]) STEVIE MoyaC: [address] [facility], [address], [place] [address], Ph. Attender: ANTIONE HUBBARDC [facility] Medical 08/25/2020 12:00:00 AM EST NATHALY ([facility]) Unknown [address] [facility], [facility] [address] 08/18/2020 12:00:00 AM EST eCW1 ([facility]) Antione Ramey RPA-C: [address], [place] [address], Ph. Attender: ANTIOEN RAMEY RPA-C [facility] Medical 07/16/2020 12:00:00 AM EST NATHALY ([facility]) Antione Ramey RPA-C: [address], [place] [address], Ph. Attender: ANTIONE RAMEY RPA-C [facility] Medical 07/16/2020 12:00:00 AM EST NATHALY ([facility]) Antione Ramey RPA-C: [address], [place] [address], Ph. Attender: ANTIONE RAMEY RPA-C [facility] Medical 06/10/2020 12:00:00 AM EST NATHALY ([facility]) Antione Ramey RPA-C: [address], [place] [address], Ph. Attender: ANTIONE RAMEY RPA-C [facility] Medical 06/10/2020 12:00:00 AM EST NATHALY ([facility]) Antione Ramey RPA-C: [address], [place] [address], Ph. Attender: ANTIONE RAMEY RPA-C [facility] Medical 06/10/2020 12:00:00 AM EST NATHALY ([facility]) Outpatient Attender: MONICA FULTON [facility] 04/2020 04:52:00 PM [facility] Outpatient Attender: MONICA FULTON [facility] 04/2020 04:50:59 PM EDT [facility] Outpatient Attender: RFROST RAMEY PA ANTIONE [facility] 12/2019 02:06:00 PM EDT [facility] Outpatient Attender: RFROST RAMEY PA ANTIONE [facility] 09/2019 03:08:01 PM EDT [facility] Outpatient Attender: ANTIONE RAMEY RPA-C [facility] 05/07/2020 03:08:00 PM EDT [facility] Outpatient Attender: RFROST RAMEY PA ANTIONE [facility] 04/06 01:44:01 PM EDT [facility] Outpatient Attender: RFROST RAMEY PA ANTIONE [facility] 11/2019 01:17:01 PM EDT [facility] Outpatient Attender: RFROST RAMEY PA ANTIONE [facility] 09/2019 08:13:01 AM EDT [facility] Outpatient Attender: RFROST RAMEY PA ANTIONE [facility] 03/07 05:16:03 PM EDT [facility] Outpatient Attender: RFROST RAMEY PA ANTIONE [facility] 03/07 04:16:01 PM EDT [facility] Outpatient Attender: RFROST RAMEY PA ANTIONE [facility] 02/05 05:47:59 PM EDT [facility] Outpatient Attender: RFROST RAMEY PA ANTIONE [facility] 02/2020 11:19:01 AM EDT [facility]patient 01/23/2020 05:52:00 AM EDT [facility] Outpatient Attender: RFROST RAMEY PA ANTIONE [facility] 01/04 03:43:59 PM EDT [facility] Outpatient [address] [facility], [facility] [address] 01/19/2020 12:00:00 AM EDT [facility] ([facility]) Outpatient Attender: RFROST RAMEY PA ANTIONE [facility] 04/2020 08:56:00 AM EDT [facility] Outpatient Attender: RFROST RAMEY PA ANTIONE [facility] 12/05 08:55:59 AM EDT [facility] Outpatient Attender: MONICA MEDINAST ROLANDO ROA [facility] 12/05 08:07:[address] [facility] Outpatient Attender: MONICA RAMEY [facility] 12/04 04:20:01 PM EDT [facility] Outpatient Attender: MONICA MEDINAST ROLANDO ROA [facility] 03/2020 01:08:00 PM EDT [facility] Outpatient Attender: ANTIONE RAMEY RPA-C [facility] 12/12/2019 01:07:59 PM EDT [facility] Outpatient Attender: ANTIONE RAMEY RPA-C 12/09/2019 10:35:01 AM EDT [facility] Outpatient Attender: ANTIONE RAMEY RPA-C [facility] 12/09/2019 09:33:00 AM EDT [facility] Outpatient Attender: ANTIONE RAMEY RPA-C 12/09/2019 07:32:03 AM EDT [facility] Outpatient Attender: GENARUPAL JOVANY ROA [facility] 12/09/2019 07:32:03 AM EDT [facility] Outpatient Attender: ANTIONE RAMEY RPA-C [facility] 12/05/2019 09:39:[address] [facility] Outpatient Attender: ANTIONE RAMEY RPA-C FP 12/04/2019 03:18:03 PM EDT [facility] Outpatient Attender: ANTIONE RAMEY RPA-C FP 12/04/2019 02:48:00 PM EDT [facility] Outpatient Attender: SONDRA AMARO FP 12/04/2019 02:28:[address] [facility] Outpatient Attender: Guillermina HANKINS FP 11/27/2019 02: 56:[address] [facility] Outpatient Attender: Guillermina MATTSON 10/31/2019 01: 35:[address] [facility] Outpatient Attender: Guillermina HANKINS FP 10/28/2019 09: 47:01 AM EDT [facility] Outpatient Attender: SONDRA MATTSON 10/27/2019 11:49:[address] [facility] Outpatient Attender: Guillermina MATTSON 10/16/2019 11: 34:03 AM EDT [facility] Outpatient Attender: Guillermina HANKINS FP 10/11/2019 11: 53:00 AM [facility] Outpatient Attender: Guillermina HANKINS FP 10/07/2019 04: 13:01 PM [facility] Outpatient Attender: SONDRA AMARO FP 10/06/2019 03:53:01 PM [facility] Outpatient Attender: SONDRA AMARO FP 09/02/2019 11:53:00 AM [facility] Outpatient Attender: Guillermina HANKINS FP 08/21/2019 01: 43:00 PM [facility] Outpatient Attender: SONDRA MATTSON 08/20/2019 11:29:00 AM [facility] Outpatient Attender: Guillermina HANKINS FP 08/07/2019 08: 21:46 AM [facility] Outpatient Attender: SONDRA AMARO FP 08/07/2019 08:21:42 AM [facility] Outpatient Attender: Guillermina HANKINS FP 08/04/2019 04: 58:01 PM [facility] Outpatient Attender: SONDRA AMARO FP 08/04/2019 09:31:00 AM [facility] Medications Medication Brand Name Start Date Product Form Dose Route Admi nistrative Instructions Pharmacy Instructions Status Indications Reaction Description Data Source(s) Sulfamethoxazole 800 MG / Trimethoprim 1 60 MG Oral Tablet [Bactrim] Bactrim DS 800-160 MG Bactrim DS 800-160 MG 01/19/2020 12:00:00 AM EDT 1.0 {table t} active Bactrim DS 800-160 MG eCW1 ( [facility]) Sulfamethoxazole 800 MG / Trimethoprim 1 60 MG Oral Tablet [Bactrim] Bactrim DS 800-160 MG Bactrim DS 800-160 MG 01/19/2020 12:00:00 AM EDT 1.0 {table t} active Bactrim DS 800-160 MG eCW1 ( [facility]) Cholecalciferol 5000 UNT Oral Capsule ch olecalciferol (vitamin D3) 125 mcg (5,000 unit) capsule TAKE ONE CAPSULE BY MOUTH EVERY DAY cholecalciferol (vitamin D3) 125 mcg (5,000 unit) capsule TAKE ONE CAPSULE BY MOUTH EVERY DAY completed cholecalcifero l 0.125 MG Oral Capsule NATHALY ([facility]) vitamin d 125 mcg (5000 ut) caps completed vitamin d 125 mcg (5000 ut) caps [facility]Y ([facility]) Ciprofloxacin 500 MG Oral Tablet ciprofloxacin 500 mg tablet ciprofloxacin 500 mg tablet completed ciprofloxaci n 500 MG Oral Tablet [facility]ANDY ([facility]) Trazodone Hydrochloride 50 MG Oral Table t trazodone 50 mg tablet TAKE ONE TABLET BY MOUTH AT BEDTIME trazodone 50 mg tablet TAKE ONE TABLET BY MOUTH AT BED TIME completed trazodone hydr ochloride 50 MG Oral Tablet B[facility]Y ([facility]) Azithromycin 250 MG Oral Tablet azithrom ycin 250 mg tablet TAKE TWO TABLETS BY MOUTH AT ONCE ON THE FIRST DAY THEN TAKE ONE DAILY THEREAFTER azithromycin 250 mg tablet TAKE TWO TABLETS BY MOUTH AT ONCE ON THE FIRST DAY THEN TAKE ONE DAILY THEREAFTER completed azithromyc in 250 MG Oral Tablet BANDY ([facility]) Azithromycin 250 MG Oral Tablet azithrom ycin 250 mg tablet TAKE TWO TABLETS BY MOUTH AT ONCE ON THE FIRST DAY THEN TAKE ONE DAILY THEREAFTER azithromycin 250 mg tablet TAKE TWO TABLETS BY MOUTH AT ONCE ON THE FIRST DAY THEN TAKE ONE DAILY THEREAFTER completed azithromyc in 250 MG Oral Tablet [facility]Y ([facility]) Trazodone Hydrochloride 50 MG Oral Table t trazodone 50 mg tablet TAKE ONE TABLET BY MOUTH AT BEDTIME trazodone 50 mg tablet TAKE ONE TABLET BY MOUTH AT BED TIME completed trazodone hydr ochloride 50 MG Oral Tablet BANDY ([facility]) NITROFURANTOIN, MACROCRYSTALS 25 MG / Ni trofurantoin, Monohydrate 75 MG Oral Capsule nitrofurantoin monohydrate/macrocrystals 100 mg capsule nitrofurantoin monohydrate/macrocrystals 100 mg capsule completed nitrofurantoin, macrocrystals 25 MG / nitrofurantoin, monohydrate 75 MG Oral Capsule [facility]Y ([facility]) Trazodone Hydrochloride 50 MG Oral Table t trazodone 50 mg tablet TAKE ONE TABLET BY MOUTH AT BEDTIME trazodone 50 mg tablet TAKE ONE TABLET BY MOUTH AT BED TIME completed trazodone hydr ochloride 50 MG Oral Tablet NATHALY ([facility]) olodaterol 0.0025 MG/ACTUAT / tiotropium 0.0025 MG/ACTUAT Metered Dose Inhaler Stiolto Respimat 2.5 mcg-2.5 mcg/actuation solution for inhalation INHALE TWO PUFFS BY MOUTH EVERY DAY Stiolto Respimat 2.5 mcg-2.5 mcg/actuati on solution for inhalation INHALE TWO PUFFS BY MOUTH EVERY DAY completed olodaterol 0.0025 MG/ACTUAT / tiotropium 0.0025 MG/ACTUAT Inhalation [place] BANDY ([facility]) vitamin d 125 mcg (5000 ut) caps completed vitamin d 125 mcg (5000 ut) caps [facility]ANDY ([facility]) Cefuroxime 500 MG Oral Tablet cefuroxime axetil 500 mg tablet TAKE ONE TABLET BY MOUTH EVERY 12 HOURS FOR 7 DAYS cefuroxime axetil 500 mg tablet TAKE ONE TABLET BY MOUTH EVERY 12 HOURS FOR 7 DAYS co mpleted cefuroxime 500 MG Oral Tablet BANDY ([facility]) Cholecalciferol 5000 UNT Oral Capsule ch olecalciferol (vitamin D3) 125 mcg (5,000 unit) capsule TAKE ONE CAPSULE BY MOUTH EVERY DAY cholecalciferol (vitamin D3) 125 mcg (5,000 unit) capsule TAKE ONE CAPSULE BY MOUTH EVERY DAY completed cholecalcifero l 0.125 MG Oral Capsule BANDY ([facility]) 60 ACTUAT Fluticasone propionate 0.25 MG [...] / salmeterol 0.05 MG/ACTUAT Dry Powder Inhaler BANDY ([facility]) 60 ACTUAT Fluticasone propionate 0.25 MG [...] / salmeterol 0.05 MG/ACTUAT Dry Powder Inhaler BANDY ([facility]) vitamin d3 25 mcg (1000 ut) tabs completed vitamin d3 25 mcg (1000 ut) tabs BANDY ([facility]) 60 ACTUAT Fluticasone propionate 0.25 MG /ACTUAT [...] / salmeterol 0.05 MG/ACTUAT Dry Powder Inhaler BANDY ([facility]) albuterol sulfate HFA 90 mcg/actuation a erosol inhaler INHALE TWO PUFFS BY MOUTH THREE TIMES A DAY FOR 10 DAYS [id number] [facility] [id number] 200 ACTUAT albuterol 0.09 MG/ACTUAT Metered Dose Inhaler BANDY ([facility]) Cefuroxime 500 MG Oral Tablet cefuroxime axetil 500 mg tablet TAKE ONE TABLET BY MOUTH EVERY 12 HOURS FOR 7 DAYS cefuroxime axetil 500 mg tablet TAKE ONE TABLET BY MOUTH EVERY 12 HOURS FOR 7 DAYS co mpleted cefuroxime 500 MG Oral Tablet BANDY ([facility]) Sulfamethoxazole 800 MG / Trimethoprim 1 60 MG Oral Tablet sulfamethoxazole 800 mg-trimethoprim 160 mg tablet sulfamethoxazole 800 mg-trimethoprim 160 mg tablet completed sulfame thoxazole 800 MG / trimethoprim 160 MG Oral Tablet BANDY ([facility]) NITROFURANTOIN, MACROCRYSTALS 25 MG / Ni trofurantoin, Monohydrate 75 MG Oral Capsule nitrofurantoin monohydrate/macrocrystals 100 mg capsule nitrofurantoin monohydrate/macrocrystals 100 mg capsule completed nitrofurantoin, macrocrystals 25 MG / nitrofurantoin, monohydrate 75 MG Oral Capsule NATHALY ([facility]) Cefuroxime 500 MG Oral Tablet cefuroxime axetil 500 mg tablet TAKE ONE TABLET BY MOUTH EVERY 12 HOURS FOR 7 DAYS cefuroxime axetil 500 mg tablet TAKE ONE TABLET BY MOUTH EVERY 12 HOURS FOR 7 DAYS co mpleted cefuroxime 500 MG Oral Tablet NATHALY ([facility]) Sulfamethoxazole 800 MG / Trimethoprim 1 60 MG Oral Tablet sulfamethoxazole 800 mg-trimethoprim 160 mg tablet sulfamethoxazole 800 mg-trimethoprim 160 mg tablet completed sulfame thoxazole 800 MG / trimethoprim 160 MG Oral Tablet NATH[facility]Y ([facility]) Ciprofloxacin 500 MG Oral Tablet ciprofloxacin 500 mg tablet ciprofloxacin 500 mg tablet completed ciprofloxaci n 500 MG Oral Tablet BANDY ([facility]) vitamin d3 25 mcg (1000 ut) tabs completed vitamin d3 25 mcg (1000 ut) tabs NATHALY ([facility]) Azithromycin 250 MG Oral Tablet azithrom ycin 250 mg tablet TAKE TWO TABLETS BY MOUTH AT ONCE ON THE FIRST DAY THEN TAKE ONE DAILY THEREAFTER azithromycin 250 mg tablet TAKE TWO TABLETS BY MOUTH AT ONCE ON THE FIRST DAY THEN TAKE ONE DAILY THEREAFTER completed azithromyc in 250 MG Oral Tablet BANDY ([facility]) olodaterol 0.0025 MG/ACTUAT / tiotropium 0.0025 MG/ACTUAT Metered Dose Inhaler Stiolto Respimat 2.5 mcg-2.5 mcg/actuation solution for inhalation INHALE TWO PUFFS BY MOUTH EVERY DAY Stiolto Respimat 2.5 mcg-2.5 mcg/actuati on solution for inhalation INHALE TWO PUFFS BY MOUTH EVERY DAY completed olodaterol 0.0025 MG/ACTUAT / tiotropium 0.0025 MG/ACTUAT Inhalation [place] BANDY ([facility]) Cholecalciferol 5000 UNT Oral Capsule ch olecalciferol (vitamin D3) 125 mcg (5,000 unit) capsule TAKE ONE CAPSULE BY MOUTH EVERY DAY cholecalciferol (vitamin D3) 125 mcg (5,000 unit) capsule TAKE ONE CAPSULE BY MOUTH EVERY DAY completed cholecalcifero l 0.125 MG Oral Capsule BANDY ([facility]) albuterol sulfate HFA 90 mcg/actuation a erosol inhaler INHALE TWO PUFFS BY MOUTH THREE TIMES A DAY FOR 10 DAYS [id number] [facility] [id number] 200 ACTUAT albuterol 0.09 MG/ACTUAT Metered Dose Inhaler BANDY ([facility]) NITROFURANTOIN, MACROCRYSTALS 25 MG / Ni trofurantoin, Monohydrate 75 MG Oral Capsule nitrofurantoin monohydrate/macrocrystals 100 mg capsule nitrofurantoin monohydrate/macrocrystals 100 mg capsule completed nitrofurantoin, macrocrystals 25 MG / nitrofurantoin, monohydrate 75 MG Oral Capsule BANDY ([facility]) olodaterol 0.0025 MG/ACTUAT / tiotropium 0.0025 MG/ACTUAT Metered Dose Inhaler Stiolto Respimat 2.5 mcg-2.5 mcg/actuation solution for inhalation INHALE TWO PUFFS BY MOUTH EVERY DAY Stiolto Respimat 2.5 mcg-2.5 mcg/actuati on solution for inhalation INHALE TWO PUFFS BY MOUTH EVERY DAY completed olodaterol 0.0025 MG/ACTUAT / tiotropium 0.0025 MG/ACTUAT Inhalation [place] BANDY ([facility]) albuterol sulfate HFA 90 mcg/actuation a erosol inhaler INHALE TWO PUFFS BY MOUTH THREE TIMES A DAY FOR 10 DAYS [id number] [facility] [id number] 200 ACTUAT albuterol 0.09 MG/ACTUAT Metered Dose Inhaler BANDY ([facility]) vitamin d 125 mcg (5000 ut) caps completed vitamin d 125 mcg (5000 ut) caps BANDY ([facility]) Ciprofloxacin 500 MG Oral Tablet ciprofloxacin 500 mg tablet ciprofloxacin 500 mg tablet completed ciprofloxaci n 500 MG Oral Tablet BANDY ([facility]) Insurance Providers Payer name Policy type / Coverage type Policy ID Covered green party ID Covered green party's relationship to bravo Policy Bravo Plan Information [facility] [id number] SP [id number] [facility] COMM[facility] PLAN MCDHMO [id number] SP [id number] [facility](MCAID) O [id number] S [id number] Managed Care - [facility] Community Plan P [id number] S [id number] Medicaid S [id number] S [id number] MEDICAID [id number] Medicaid S [id number] S [id number] Managed Care - [facility] Community Plan P [id number] S [id number] Managed Care - [facility] P [id number] S [id number] UNHC AMERICHOICE XIX -HMO [id number] 18 [id number] Medicaid S [id number] S [id number] Managed Care - [facility] P [id number] S [id number] Medicaid S [id number] S [id number] Managed Care - [facility] P UNAVAILABLE S UNAVAILABLE ANSI-Medicaid [id number] UNHC COMMUNITY PLAN XIX [id number] 18 [id number] ANSI-Medicaid [id number] ANSI-Medicaid [id number] ANSI-Medicaid [id number] Managed Care BCBS P [id number] S [id number] Medicaid S [id number] MEDICAID [id number] SP [id number] Problems, Conditions, and Diagnoses Code Display Name Description Problem Type Effective Dates Data Source(s) 24305087 Hypertensive disorder Hypertensive Disorder Problem 05/20/2020 06:26:16 PM EDT NATHALY ([facility]) 447601354 Type 2 diabetes mellitus without complic ation Type 2 Diabetes Mellitus without Complication Problem 05/20/2020 06:26:16 PM EDT NATHALY ([facility]) 76754944 Hypertensive disorder Hypertensive Disorder Problem 05/20/2020 06:26:16 PM EDT NATHALY ([facility]) 206816798 Type 2 diabetes mellitus without complic ation Type 2 Diabetes Mellitus without Complication Problem 05/20/2020 06:26:16 PM EDT NATHALY ([facility]) 63671432 Hypertensive disorder Hypertensive Disorder Problem 05/20/2020 06:26:16 PM EDT NATHALY ([facility]) [id number] Type 2 diabetes mellitus without complic ation Type 2 Diabetes Mellitus without Complication Problem 05/20/2020 06:26:16 PM EDT BANDY ([facility]) N21.0 Calculus of bladder Bladder stones Problem 01/19/2020 1 2:00:00 AM EDT eCW1 ([facility]) 595.0 Acute cystitis with hematuria Acute cystitis with patel turia 12/04/2019 03:16:39 PM EDT [facility] 788.1 Dysuria Dysuria 12/04/2019 03:16:39 PM ED T [facility] F17.210 Nicotine dependence, cigarettes, uncompl icated Nicotine dependence, cigarettes, uncomplicated 12/04/2019 03:16:39 PM EDT [facility] 26303945 Dysuria Dysuria Problem 12/04/2019 12:0 0:00 AM EDT - 06/10/2020 12:00:00 AM EST NATHALY ([facility]) 29896942 Acute cystitis Acute Cystitis Problem 12/04/2019 12:00:00 AM EDT - 06/10/2020 12:00:00 AM EST NATHALY ([facility]) 55958955 Dysuria Dysuria Problem 12/04/2019 12:0 0:00 AM EDT - 06/10/2020 12:00:00 AM EST NATHALY ([facility]) 67617655 Acute cystitis Acute Cystitis Problem 12/04/2019 12:00:00 AM EDT - 06/10/2020 12:00:00 AM EST NATHALY ([facility]) 34173730 Dysuria Dysuria Problem 12/04/2019 12:0 0:00 AM EDT - 06/10/2020 12:00:00 AM EST NATHALY ([facility]) 96863697 Acute cystitis Acute Cystitis Problem 12/04/2019 12:00:00 AM EDT - 06/10/2020 12:00:00 AM LEONCIO ANDERSEN ([facility]) [id number] Pain in left foot Pain in Left Foot Problem 12:00:00 AM EDT - 06/10/2020 12:00:00 AM EST NATHALY ([facility]) [id number] Pain in left foot Pain in Left Foot Problem 12:00:00 AM EDT - 06/10/2020 12:00:00 AM EST NATHALY ([facility]) [id number] Pain in left foot Pain in Left Foot Problem 12:00:00 AM EDT - 06/10/2020 12:00:00 AM LEONCIO ANDERSEN ([facility]) 225895106 Tobacco use and exposure - finding Tobacco Use a nd Exposure - Finding Problem 10/22/2012 12:00:00 AM EDT - 06/10/2020 12:00:00 AM PABLO ANDERSEN ([facility]) [id number] Tobacco use and exposure - finding Tobacco Use a nd Exposure - Finding Problem 10/22/2012 12:00:00 AM EDT - 06/10/2020 12:00:00 AM PABLO ANDERSEN ([facility]) [id number] Tobacco use and exposure - finding Tobacco Use a nd Exposure - Finding Problem 10/22/2012 12:00:00 AM EDT - 06/10/2020 12:00:00 AM PABLO ANDERSEN ([facility]) Results ID Date Data Source [id number] 06/10/2020 12:00:00 AM LEONCIO ANDERSEN ([facility]) Name Value Range Interpretation Code Description Data Kirstin rce(s) Supporting Document(s) Hemoglobin A1c/Hemoglobin.total in Blood A1C NATHALY ([facility]) ID Date Data Source [id number] 06/10/2020 12:00:00 AM LEONCIO ANDERSEN ([facility]) Name Value Range Interpretation Code Description Data Kirstin rce(s) Supporting Document(s) Hemoglobin A1c/Hemoglobin.total in Blood A1C NATHALY ([facility]) ID Date Data Source [id number] 06/10/2020 12:00:00 AM EST NATHALY ([facility]) Name Value Range Interpretation Code Description Data Kirstin rce(s) Supporting Document(s) Hemoglobin A1c/Hemoglobin.total in Blood A1C BANDY ([facility]) ID Date Data Source [id number] 04/28/2020 08:35:00 AM EDT [facility] Name Value Range Interpretation Code Description Data Kirstin rce(s) Supporting Document(s) HCT 49.6 % 42.0-52.0 N [facility] HGB 15.9 g/dL 13.5-17.5 N [facility] MCH 32.1 G/DL pg 32.0-36.5 N [facility] MCHC 31.5 PG % 27.0-33.0 N [facility] PLATELETS 308 10 10*3/mm3 150-450 N [facility] RBC 5.05 10 10*6/mm3 4.30-6.10 [facility] RDW 13.3 % 11.5-14.5 [facility] WBC TOTAL 12.1 4.0-10.0 H [facility] ID Date Data Source [id number] 04/28/2020 08:35:00 AM EDT [facility] Name Value Range Interpretation Code Description Data Kirstin rce(s) Supporting Document(s) VIT D25 TOT 32.9 ng/mL 30.0-100.0 N [facility] BG FASTING 124 mg/dL 70-[address] [facility] T4, FREE 0.91 ng/dL 0.76-1.[address] [facility] TSH 0.792 microintl units/mL 0.358-3.740 N [facility] ID Date Data Source [id number] 04/28/2020 08:35:00 AM EDT [facility] Name Value Range Interpretation Code Description Data Kirstin rce(s) Supporting Document(s) HGBA1C 6.8 % N [facility] ID Date Data Source [id number] 04/28/2020 12:00:00 AM EDT [facility]) Name Value Range Interpretation Code Description Data Kirstin rce(s) Supporting Document(s) Cholesterol in LDL [Mass/volume] in Serum or Plasma Ldl [facility]) ID Date Data Source [id number] 04/28/2020 12:00:00 AM EDT [facility]) Name Value Range Interpretation Code Description Data Kirstin rce(s) Supporting Document(s) Cholesterol in LDL [Mass/volume] in Serum or Plasma Ldl [facility]) ID Date Data Source [id number] 04/28/2020 12:00:00 AM EDT [facility]) Name Value Range Interpretation Code Description Data Kirstin rce(s) Supporting Document(s) Cholesterol in LDL [Mass/volume] in Serum or Plasma Ldl [facility]) ID Date Data Source [id number] 12/04/2019 03:10:00 PM EDT [facility] Name Value Range Interpretation Code Description Data Kirstin rce(s) Supporting Document(s) URINECULTRTN NO GROWTH CLINICAL SIGNIFICANCE 1 ORGANISM N [facility] ID Date Data Source [id number] 12/04/2019 02:32:03 PM EDT [facility] Measurements & CalculationsHeight: 66 inches 167.64 [...] pH: 7.0 5.0-6.5 Blood: 1+ Negative Specific [place]: 1.015 1.020>=1.030 Ketone: negative Negative Bilirubin: negative [...] during this visit, including review of any yepa-dim-jqbmpln medications, herbal therapies, and/or supplements.Allergy ReviewAllergy List [...] is? GoodAssessment & Plan Problems:Added: Dysuria (ICD-788.1) (ALZ74-Y60.0)Acute cystitis with hematuria (ICD-595.0) (WBR87-K88.01) Assessment: Instructions: Take antibiotics as prescribed, finish full course even if symptoms resolve. Antibiotics may cause stomach upset, recommend eating yogurt or taking probiotic while on antibiotics. Stay well hydrated, urinate often, empty bladder fully. Urinate within 1 hour after intercourse.Changed:From: Dx of NONDEPENDENT TOBACCO USE DISORDER (ICD-305.1) (SRK28-D71.0) To: Nicotine dependence, cigarettes, uncomplicated (GNA25-M37.210)Assessed:DIABETES, TYPE 2 (ICD-250.00) (ZSO02-U97.9) Assessment: Instructions: Update labs as ordered. Recommend [...] home and call with any concerns.HYPERTENSION (ICD-401.9) (OZD63-U17) Assessment: Instructions: BP elevated today. Recommend reduced salt intake, cut back on caffeine and alcohol, increase physical activity. We reviewed the intermediate frame tender risks associated with uncontrolled high blood pressure, including stroke and heart attack. Goal BP is <140/90, please call the office if your blood pressures are consistently running higher than that cutoff. Call 911 or report to the closest ER for chest pain, shortness of breath, dizziness, or passing out.NONDEPENDENT TOBACCO USE DISORDER (ICD-305.1) (ZVL88-R43.0) Assessment: Patient is not interested in cessation or reduction. Instructions: Smoking cessation counseling was recommended with patient today.Nicotine depen dence, cigarettes, uncomplicated (XNZ88-X71.210) Assessment: Patient is not interested in cessation or reduction. Instructions: Smoking cessation counseling was recommended with patient today.OBSTRUCTIVE SLEEP APNEA (ICD- 327.23) (IPU97-H99.33) Assessment: Instructions: Will fax supply request to SteveChronic obstructive pulmonary disease, unspecified (VLN74-A99.9) Assessment: Instructions: Stop Stiolto, switch to Advair (or alternative as approved by insurance). Smoking cessation counseling was recommended with patient today.HYPERLIPIDEMIA (ICD-272.4) (PYG51-R30.5) Assessment: I nstructions: Recommend healthy lifestyle modification. Encourage portion control, healthy food choices, and increasing routine physical activity. Recommendation is for 150 minutes throughout the week of cardiovascular exercise.Removed:ESSENTIAL HYPERTENSION (ICD-401.9) (FJQ03-Q00)Assessment not Saved OBSTRUCTIVE SLEEP APNEA (BUF53-E46.33): Patient Instructions/Care Plan: DIABETES- TYPE 2: Update [...] alcohol, increase physical activity. We reviewed the intermediate risks associated with uncontrolled high blood pressure, [...] RESPIMAT 2.5-2.5 MCG/ACT INHALATION AEROSOL SOLUTION Qty: [id number] Refills: 1[Inhaler] To: ADVAIR DISKUS 250-50 MCG/DOSE INHALATION AEROSOL POWDER BREATH ACTIVATED-1 oral inhalation BID; gargle with water and rinse mouth after every use Qty: 1[Inhaler] Refills: 5 To: * BIPAP MACHINE WITH MASK AND TUBING-nightly while sleeping for obstructive sleep apnea, continue current pressure settings; mask, tubing, supplies refill Qty: 1 Refills: 3Allergies:PCN (Severe)Orders:HgBA1c [CPT-76848] COMP METABOLIC PANEL [CPT-07322] COMP METABOLIC PANEL [CPT-42320] CBC W/DIFF [CPT-32417] HgBA1c [CPT-87891] LIPID PANEL [CPT-99019] TSH [CPT- 29964] T-4 free [CPT-56260] Vitamin D 250H Unspecified [CPT-09522] Urine Culture & Sensitivity [CPT-31714] Adult - Ofc Vst, EST, Level III [CPT-18891] Follow-Up Return to clinic: in 90 days for follow upAdditional Follow-Up: T2DM, HTNClinical Visit Summary CompletedMedications:BIPAP MACHINE WITH MASK AND TUBING nightly while sleeping for obstructive sleep apnea, continue current pressure settings; mask, tubing, supplies refill #1 x 3 Entered and Authorized by: Antione MARSHALL Method used: Print then Give to Patient RxID: [id number] MACHINE WITH MASK AND TUBING UAD for obstructive sleep apnea. Continue current pressure settings. #1 x 0 Entered and Authorized by: Antione MARSHALL Method used: Printed then faxed to ... [facility] [address] [place] [address] Ph: Indications: OBSTRUCTIVE SLEEP APNEA RxID: [id number] 100 MG ORAL CAPSULE (NITROFURANTOIN MONOHYD MACRO) Take 1 capsule po BID #14[Capsule] x 0 Route:ORAL Entered and Authorized by: Antione MARSHALL Method used: Electronically to [facility] (retail) [address] [place] [address] Note to Pharmacy: Route: ORAL; Indications: DYSURIA RxID: [id number] DISKUS 250-50 MCG/DOSE INHALATION AEROSOL POWDER BREATH ACTIVATED (FLUTICASONE- SALMETEROL) 1 oral inhalation BID; gargle with water and rinse mouth after every use #1[Inhaler] x 5 Route:INHALATION Entered and Authorized by: Antione MARSHALL Method used: Electronically to [facility] (retail) [address] [place] [address] Note to Pharmacy: Route: INHALATION; Indications: CHRONIC OBSTRUCTIVE PULMONARY DISEASE, UNSPECIFIED;NICOTINE DEPENDENCE, CIGARETTES, UNCOMPLICATED RxID: [id number] (LANCETS) Test fasting blood sugar once daily and prpn #100[Lancet] x 3 Entered and Authorized by: Antione MARSHALL Method used: Electronically to [facility] (retail) [address] [place] [address] Indications: DIABETES, TYPE 2 RxID: [id number] GLUCOSE TEST IN VITRO STRIP (GLUCOSE BLOOD) Test fasting blood sugar once daily and prn #100[Strip] x 3 Route:IN VITRO Entered and Authorized by: Antione MARSHALL Method used: Electronically to [facility] (retail) [address] [place] [address] Note to Pharmacy: Route: IN VITRO; Indications: DIABETES, TYPE 2 RxID: [id number] GLUCOSE MONITOR SYSTEM W/DEVICE KIT (BLOOD GLUCOSE MONITORING SUPPL) Test fasting blood sugar once daily and prn #1[Kit] x 0 Entered and Authorized by: Antione MARSHALL Method used: Electronically to [facility] (retail) [address] [place] [address] Indications: DIABETES, TYPE 2 RxID: [id number] signed by Antione MARSHALL on 12/12/2019 at 1:07 PM Name Value Range Interpretation Code Description Data Kirstin rce(s) Supporting Document(s) ID Date Data Source [id number] 12/04/2019 02:32:03 PM EDT [facility] Name Value Range Interpretation Code Description Data Kirstin rce(s) Supporting Document(s) [facility] BLOOD UR DIP 1+ [facility] GLUCOSE, [facility]RN [facility] KETONES URN negative [facility] NITRITE URN negative [facility] PH URINE 7.0 [facility] PROTEIN, URN 1+ [facility] SPEC GR URIN 1.015 [facility] UA COLOR yellow [facility]OBILINOGEN negative [facility] WBC DIPSTK U 2+ [facility] ID Date Data Source [id number] 08/04/2019 09:50:38 AM EST [facility] Labs In-House Blood TestsDate/Time Colle cted: August 04, 2019 9:50 AMTest Result Reference Range Normal ValueComments: blood draw done in offcie done in the left ac tolerated well Matteo Florian LEWIS, August 04, 2019 9:51 AMAssessment & Plan Orders:[id number] Vst-Est Level I [CPT-71857] 74880 - Venipuncture [CPT-14455] Name Value Range Interpretation Code Description Data Kirstin rce(s) Supporting Document(s) ID Date Data Source [id number] 08/04/2019 05:31:00 AM EST [facility] Name Value Range Interpretation Code Description Data Kirstin rce(s) Supporting Document(s) BG FASTING 128 mg/dL 70-100 H [facility] ID Date Data Source [id number] 08/04/2019 05:31:00 AM EST [facility] Name Value Range Interpretation Code Description Data Kirstin rce(s) Supporting Document(s) HGBA1C 6.9 % N [facility] Procedure Vital Signs ID Date Data Source UNK Name Value Range Interpretation Code Description Data Source(s) Body weight 4374.4 [oz_av] 4374.4 [oz_av] ATHEN A ([facility]) Systolic blood pressure 143 mm[Hg] 143 mm[Hg] A THENA ([facility]) Body mass index (BMI) [Ratio] 44.1 kg/m2 44.1 k g/m2 NATHALY ([facility]) Body height 66 [in_i] 66 [in_i] NATHALY ([facility]) Diastolic blood pressure 82 mm[Hg] 82 mm[Hg] NATHALY ([facility]) Body height 66 [in_i] 66 [in_i] NATHALY ([facility]) Body height 66 [in_i] 66 [in_i] NATHALY ([facility]) Body weight 4211 [oz_av] 4211 [oz_av] NATHALY ([facility]) Systolic blood pressure 122 mm[Hg] 122 mm[Hg] A THENA ([facility]) Body mass index (BMI) [Ratio] 42.5 kg/m2 42.5 k g/m2 NATHALY ([facility]) Body height 66 [in_i] 66 [in_i] NATHALY ([facility]) Diastolic blood pressure 79 mm[Hg] 79 mm[Hg] NATHALY ([facility]) Body weight 4211 [oz_av] 4211 [oz_av] NATHALY ([facility]) Systolic blood pressure 122 mm[Hg] 122 mm[Hg] A THENA ([facility]) Body mass index (BMI) [Ratio] 42.5 kg/m2 42.5 k g/m2 NATHALY ([facility]) Body height 66 [in_i] 66 [in_i] NATHALY ([facility]) Diastolic blood pressure 79 mm[Hg] 79 mm[Hg] NATHALY ([facility]) Body weight 4211 [oz_av] 4211 [oz_av] NATHALY ([facility]) Systolic blood pressure 122 mm[Hg] 122 mm[Hg] A THENA ([facility]) Body mass index (BMI) [Ratio] 42.5 kg/m2 42.5 k g/m2 NATHALY ([facility]) Body height 66 [in_i] 66 [in_i] NATHALY ([facility]) Diastolic blood pressure 79 mm[Hg] 79 mm[Hg] NATHALY ([facility]) Diastolic blood pressure 80 mm[Hg] 80 mm[Hg] eCW1 ([facility]) Systolic blood pressure 138 mm[Hg] 138 mm[Hg] e CW1 ([facility]) Body temperature 97.9 [degF] 97.9 [degF] eCW1 ( [facility]) Respiratory rate 18 /min 18 /min eCW1 ([facility]) Heart rate 92 /min 92 /min eCW1 ([facility]) Body mass index (BMI) [Ratio] 41.93 kg/m2 41.93 kg/m2 eCW1 ([facility]) Body height 65 [in_i] 65 [in_i] eCW1 ([facility]) Body weight 252 [lb_av] 252 [lb_av] eCW1 ([facility]) Body weight 3977.6 [oz_av] 3977.6 [oz_av] ATHEN A ([facility]) Systolic blood pressure 122 mm[Hg] 122 mm[Hg] A [facility] ([facility]) Body height 66 [in_i] 66 [in_i] NATHALY ([facility]) Diastolic blood pressure 84 mm[Hg] 84 mm[Hg] NATHALY ([facility]) Body weight 3977.6 [oz_av] 3977.6 [oz_av] ATHEN A ([facility]) Systolic blood pressure 122 mm[Hg] 122 mm[Hg] A [facility] ([facility]) Body height 66 [in_i] 66 [in_i] NATHALY ([facility]) Diastolic blood pressure 84 mm[Hg] 84 mm[Hg] NATHALY ([facility]) Body weight 3977.6 [oz_av] 3977.6 [oz_av] ATHEN A ([facility]) Systolic blood pressure 122 mm[Hg] 122 mm[Hg] A [facility] ([facility]) Body height 66 [in_i] 66 [in_i] NATHALY ([facility]) Diastolic blood pressure 84 mm[Hg] 84 mm[Hg] NATHALY ([facility]) Patient Treatment Plan of Care Planned Activity Planned Date Details Description Data Source (s) Sulfamethoxazole 800 MG / Trimethoprim 160 MG Oral Tab let [Bactrim] 01/19/2020 12:00:00 AM EDT eCW1 ([facility]) Sulfamethoxazole 800 MG / Trimethoprim 160 MG Oral Tab let [Bactrim] 01/19/2020 12:00:00 AM EDT eCW1 ([facility]) vitamin d 125 mcg (5000 ut) caps NATHALY ([facility]) Trazodone Hydrochloride 50 MG Oral Tablet NATHALY ([facility]) Sulfamethoxazole 800 MG / Trimethoprim 160 MG Oral Tablet NATHALY ([facility]) olodaterol 0.0025 MG/ACTUAT / tiotropium 0.0025 MG/ACT UAT Metered Dose Inhaler NATHALY ([facility]) NITROFURANTOIN, MACROCRYSTALS 25 MG / Ni trofurantoin, Monohydrate 75 MG Oral Capsule NATHALY ([facility]) 60 ACTUAT Fluticasone propionate 0.25 MG /ACTUAT / salmeterol 0.05 MG/ACTUAT Dry Powder Inhaler NATHALY ([facility]) Ciprofloxacin 500 MG Oral Tablet NATHALY ([facility]) Cholecalciferol 5000 UNT Oral Capsule NATHALY ([facility]) Cefuroxime 500 MG Oral Tablet NATHALY ([facility]) Azithromycin 250 MG Oral Tablet NATHALY ([facility]) albuterol sulfate HFA 90 mcg/actuation a erosol inhaler INHALE TWO PUFFS BY MOUTH THREE TIMES A DAY FOR 10 DAYS A THENA ([facility]) vitamin d3 25 mcg (1000 ut) tabs NATHALY ([facility]) vitamin d 125 mcg (5000 ut) caps NATHALY ([facility]) Trazodone Hydrochloride 50 MG Oral Tablet NATHALY ([facility]) olodaterol 0.0025 MG/ACTUAT / tiotropium 0.0025 MG/ACT UAT Metered Dose Inhaler NATHALY ([facility]) NITROFURANTOIN, MACROCRYSTALS 25 MG / Ni trofurantoin, Monohydrate 75 MG Oral Capsule NATHALY ([facility]) 60 ACTUAT Fluticasone propionate 0.25 MG /ACTUAT / salmeterol 0.05 MG/ACTUAT Dry Powder Inhaler NATHALY ([facility]) Ciprofloxacin 500 MG Oral Tablet NATHALY ([facility]) Cholecalciferol 5000 UNT Oral Capsule NATHALY ([facility]) Cefuroxime 500 MG Oral Tablet NATHALY ([facility]) Azithromycin 250 MG Oral Tablet NATHALY ([facility]) albuterol sulfate HFA 90 mcg/actuation a erosol inhaler INHALE TWO PUFFS BY MOUTH THREE TIMES A DAY FOR 10 DAYS A THENA ([facility]) vitamin d3 25 mcg (1000 ut) tabs NATHALY ([facility]) vitamin d 125 mcg (5000 ut) caps NATHALY ([facility]) Trazodone Hydrochloride 50 MG Oral Tablet NATHALY ([facility]) Sulfamethoxazole 800 MG / Trimethoprim 160 MG Oral Tablet NATHALY ([facility]) olodaterol 0.0025 MG/ACTUAT / tiotropium 0.0025 MG/ACT UAT Metered Dose Inhaler NATHALY ([facility]) NITROFURANTOIN, MACROCRYSTALS 25 MG / Ni trofurantoin, Monohydrate 75 MG Oral Capsule NATHALY ([facility]) 60 ACTUAT Fluticasone propionate 0.25 MG /ACTUAT / salmeterol 0.05 MG/ACTUAT Dry Powder Inhaler NATHALY ([facility]) Ciprofloxacin 500 MG Oral Tablet NATHALY ([facility]) Cholecalciferol 5000 UNT Oral Capsule NATHALY ([facility]) Cefuroxime 500 MG Oral Tablet NATHALY ([facility]) Azithromycin 250 MG Oral Tablet NATHALY ([facility]) albuterol sulfate HFA 90 mcg/actuation a erosol inhaler INHALE TWO PUFFS BY MOUTH THREE TIMES A DAY FOR 10 DAYS A THENA ([facility])
[2020-10-01] MEDS ORDERED: KETOROLAC TROMETHAMINE 10 MG TAB PO ONE (16:30)
[2020-10-01 16:57] VITALS: BP 149/79
== END 2020-10-01 16:50 | disposition home or self-care (01) ==
LOC: M ED 14:54
DX: S93.402A Sprain of unspecified ligament of left ankle, initial encounter (principal); W00.9XXA Unspecified fall due to ice and snow, initial encounter; Y92.099 Unspecified place in other non-institutional residence as the place of occurrence of the external cause; Y93.9 Activity, unspecified; Y99.9 Unspecified external cause status; E11.9 Type 2 diabetes mellitus without complications; I10 Essential (primary) hypertension; E78.5 Hyperlipidemia, unspecified; J44.9 Chronic obstructive pulmonary disease, unspecified; G47.33 Obstructive sleep apnea (adult) (pediatric); M19.90 Unspecified osteoarthritis, unspecified site; Z87.442 Personal history of urinary calculi; F17.200 Nicotine dependence, unspecified, uncomplicated; M77.32 Calcaneal spur, left foot; Z79.82 Long term (current) use of aspirin; Z79.84 Long term (current) use of oral hypoglycemic drugs; Z79.899 Other long term (current) drug therapy; Z88.0 Allergy status to penicillin

== ENCOUNTER → 2020-11-08 | Outpatient (CLI) | payer OTHER ==
[2020-11-08 10:15] LABS: HEMOGLOBIN A1c 9.8 %
[2020-11-08 10:31] LABS: ALBUMIN 3.2 GM/DL (3.2-5.2); ALT/SGPT 31 U/L (12-78); BILIRUBIN,TOTAL 0.6 MG/DL (0.2-1.0); BLOOD UREA NITROGEN 17 MG/DL (7-18); CALCIUM LEVEL 8.6 MG/DL (8.5-10.1); CARBON DIOXIDE LEVEL 32 MEQ/L (21-32); CHLORIDE LEVEL 101 MEQ/L (98-107); CHOLESTEROL LEVEL 117 MG/DL (<200); CHOLESTEROL RISK RATIO 3.441 (<5); GLOMERULAR FILTRATION RATE > 60.0 (>60); GLUCOSE, FASTING 234 MG/DL (70-100); HDL CHOLESTEROL 34 MG/DL (>40); LDL CHOLESTEROL 44 MG/DL (<100); NON-HDL-C 83 MG/DL; POTASSIUM SERUM 4.4 MEQ/L (3.5-5.1); SODIUM LEVEL 137 MEQ/L (136-145); THYROID STIMULATING HORMONE 0.735 uIU/ML (0.358-3.740); TOTAL PROTEIN 6.4 GM/DL (6.4-8.2); TRIGLYCERIDES LEVEL 197 MG/DL (<150)
== END ==
LOC: M LAB 09:19
PROVIDERS: ATTEND Family Medicine Addiction Medicine
DX: E11.9 Type 2 diabetes mellitus without complications (principal)

== ENCOUNTER → 2021-04-06 | Outpatient (CLI) | payer OTHER ==
[~2021-04-06] MED LIST changes: -CLIN150C15 PO; +CLIN150C17 PO
--- NOTE | 2021-04-07 16:51 | SLEEPCENT ---
DATE: 04/06/2021 ORDERED BY: Bambi Schneider Nocturnal polysomnography was performed for a retitration of pressure therapy in this patient with complex apnea. For testing, a ResMed full-face mask of medium size. An initial bilevel pressure of 8/4 was applied to the circuit, and the lights were extinguished. There was 8 hours and 35 minutes of data reviewed. There was 406.5 minutes of sleep identified. Sleep latency was mildly prolonged at 15.5 minutes. REM latency was normal at 84 minutes. Sleep architecture was fairly well preserved with four REM cycles. There was a period of wake around midnight, reducing sleep efficiency to 79.5%. The electrocardiogram showed a sinus rhythm with an average heart rate of 90 beats per minute. EEG showed reasonably normal waveforms for wake and sleep. Persistence of respiratory events prompted increases in pressure therapy. Best sleep was seen on a bilevel pressure, inspiratory 18 over expiratory 14. Some hypopneic patterning persisted with oxygen saturations just to 87%, and that briefly. Further increases in pressure prompted the emergence of central events. There was some limb activity noted early in the study. Limb movement arousal index on this occasion was 3.4. IMPRESSION: Obstructive sleep apnea syndrome (G47.33). RECOMMENDATION: Nightly use of pressure therapy at an inspiratory pressure of 18 over expiratory pressure of 14 appears to be best. Close clinical followup is recommended, and the patient may need the addition of supplemental oxygen to address hypoventilatory desaturations.
== END ==
LOC: M SLEEP 20:00
PROVIDERS: ATTEND Nurse Practitioner Family
DX: G47.33 Obstructive sleep apnea (adult) (pediatric) (principal)

== ENCOUNTER → 2021-07-13 | Outpatient (REF) | payer OTHER ==
[~2021-07-13] MED LIST changes: +CLIN-250 PO; -CLIN300C6 PO
[2021-07-13 17:01] LABS: APPEARANCE, URINE CLOUDY (CLEAR); BACTERIA, URINE AUTO NEGATIVE (NEGATIVE); BILIRUBIN, URINE AUTO NEGATIVE (NEGATIVE); BLOOD, URINE BLOOD 2+ (NEGATIVE); COLOR, URINE YELLOW (YELLOW); GLUCOSE, URINE (UA) AUTO 3+ mg/dL (NEGATIVE); KETONE, URINE AUTO TRACE mg/dL (NEGATIVE); LEUKOCYTE ESTERASE, URINE AUTO 3+ (NEGATIVE); MUCUS, URINE SMALL (NEGATIVE); NITRITE, URINE AUTO NEGATIVE (NEGATIVE); PROTEIN, URINE AUTO 2+ mg/dL (NEGATIVE); RBC, URINE AUTO 23 /HPF (0-3); SPECIFIC GRAVITY URINE AUTO 1.027 (1.002-1.035); SQUAMOUS EPITHELIAL CELL UR AU 1 /HPF (0-6); UROBILINOGEN, URINE AUTO 0.2 mg/dL (0.0-2.0); WBC, URINE AUTO TNTC /HPF (0-3)
[2021-07-13 18:20] LABS: GC DNA AMPLIFICATION NEGATIVE (NEGATIVE)
== END ==
LOC: M LAB REF 16:34
PROVIDERS: ATTEND Physician Assistant
DX: N39.0 Urinary tract infection, site not specified (principal)

== ENCOUNTER → 2022-01-10 | Outpatient (CLI) | payer OTHER ==
[2022-01-10 10:22] LABS: HEMATOCRIT 51.1 % (42.0-52.0); MEAN CORPUSCULAR HEMOGLOBIN 31.2 pg (27.0-33.0); MEAN CORPUSCULAR HGB CONC 31.9 g/dl (32.0-36.5); MEAN CORPUSCULAR VOLUME 97.7 fl (80.0-96.0); PLATELET COUNT, AUTOMATED 311 10^3/uL (150-450); RED BLOOD COUNT 5.23 10^6/uL (4.30-6.10); WHITE BLOOD COUNT 11.8 10^3/uL (4.0-10.0)
[2022-01-10 10:23] LABS: HEMOGLOBIN 16.3 g/dl (13.5-17.5)
[2022-01-10 10:51] LABS: ALBUMIN 3.5 GM/DL (3.2-5.2); ALT/SGPT 20 U/L (12-78); BILIRUBIN,TOTAL 0.3 MG/DL (0.2-1.0); BLOOD UREA NITROGEN 15 MG/DL (7-18); CALCIUM LEVEL 9.5 MG/DL (8.5-10.1); CARBON DIOXIDE LEVEL 35 MEQ/L (21-32); CHLORIDE LEVEL 106 MEQ/L (98-107); CHOLESTEROL LEVEL 161 MG/DL (<200); CHOLESTEROL RISK RATIO 5.193 (<5); CREATININE FOR GFR 0.91 MG/DL (0.70-1.30); GLOMERULAR FILTRATION RATE > 60.0 (>60); GLUCOSE, FASTING 213 MG/DL (70-100); HDL CHOLESTEROL 31 MG/DL (>40); LDL CHOLESTEROL 90 MG/DL (<100); NON-HDL-C 130 MG/DL; POTASSIUM SERUM 5.6 MEQ/L (3.5-5.1); SODIUM LEVEL 141 MEQ/L (136-145); TOTAL PROTEIN 7.2 GM/DL (6.4-8.2); TRIGLYCERIDES LEVEL 202 MG/DL (<150)
[2022-01-10 11:21] LABS: HEMOGLOBIN A1c 7.7 %
== END ==
LOC: M LAB 09:18
PROVIDERS: ATTEND Physician Assistant
DX: E78.5 Hyperlipidemia, unspecified (principal); E11.65 Type 2 diabetes mellitus with hyperglycemia

== ENCOUNTER 2022-05-30 12:10 | Emergency (ER) | payer OTHER ==
[~2022-05-30] VITALS: Ht 165.1 cm; Wt 108.5 kg
[2022-05-30 18:04] VITALS: BP 141/81
[2022-05-30] MEDS ORDERED: IBUP-1022 PO (20:38)
== END 2022-05-30 18:06 | disposition home or self-care (01) ==
LOC: M ED 12:10
DX: S63.501A Unspecified sprain of right wrist, initial encounter (principal); E11.9 Type 2 diabetes mellitus without complications; I10 Essential (primary) hypertension; E78.5 Hyperlipidemia, unspecified; J44.9 Chronic obstructive pulmonary disease, unspecified; M13.80 Other specified arthritis, unspecified site; F17.200 Nicotine dependence, unspecified, uncomplicated; Z87.442 Personal history of urinary calculi; Z88.0 Allergy status to penicillin; Z79.4 Long term (current) use of insulin; Z79.811 Long term (current) use of aromatase inhibitors; Z79.82 Long term (current) use of aspirin; Y92.009 Unspecified place in unspecified non-institutional (private) residence as the place of occurrence of the external cause; Y93.E6 Activity, residential relocation; Y99.9 Unspecified external cause status

== ENCOUNTER → 2022-08-03 | Outpatient (REF) | payer OTHER ==
[2022-08-03 18:44] LABS: APPEARANCE, URINE MANUAL CLOUDY (CLEAR); COLOR, URINE MANUAL YELLOW (YELLOW)
[2022-08-03 18:45] LABS: BILIRUBIN, URINE MANUAL NEGATIVE (NEGATIVE); BLOOD URINE MANUAL POSITIVE (NEGATIVE); GLUCOSE, URINE (UA) MANUAL NEGATIVE (NEGATIVE); KETONE, URINE MANUAL NEGATIVE (NEGATIVE); LEUKOCYTE ESTERASE, URINE MAN POSITIVE (NEGATIVE); NITRITE, URINE MANUAL POSITIVE (NEGATIVE); PROTEIN, URINE MANUAL 1+ mg/dL (NEGATIVE); SPECIFIC GRAVITY,URINE MANUAL 1.025 (1.002-1.035); UROBILINOGEN, URINE MANUAL NORMAL (NORMAL)
[2022-08-03 20:03] LABS: WBC, URINE TNTC /hpf (0-3)
[2022-08-03 20:04] LABS: BACTERIA, URINE LARGE AMOUNT; CALCIUM OXALATE CRYSTALS,URINE SMALL AMOUNT /hpf; HYALINE CAST, URINE NONE SEEN /lpf (0-1); SQUAMOUS EPITHELIAL CELL URINE NONE SEEN /hpf (SMALL AMT)
[2022-08-03 20:20] LABS: GC DNA AMPLIFICATION NEGATIVE (NEGATIVE)
== END ==
LOC: M LAB REF 17:23
PROVIDERS: ATTEND Physician Assistant
DX: N39.0 Urinary tract infection, site not specified (principal)

== ENCOUNTER → 2022-11-01 | Outpatient (CLI) | payer OTHER | LOC: M RAD 13:31 | PROVIDERS: ATTEND Physician Assistant Medical | DX: M25.511 Pain in right shoulder (principal) ==

== ENCOUNTER → 2022-11-02 | Outpatient (CLI) | payer OTHER ==
[2022-11-02 11:40] LABS: CREATININE, URINE 175.6 MG/DL; CREATININE,RANDOM URINE 175.6 MG/DL; MAU/CREAT RATIO 214.6 MCG/MG (0.0-30.0)
[2022-11-02 11:41] LABS: ALBUMIN 3.6 G/DL (3.2-5.2); ALKALINE PHOSPHATASE 120 U/L (46-116); ALT/SGPT 16 U/L (7.0-40); AST/SGOT 19 U/L (<34); BILIRUBIN,TOTAL 0.5 MG/DL (0.3-1.2); BLOOD UREA NITROGEN 15 MG/DL (9-23); CALCIUM LEVEL 8.7 MG/DL (8.5-10.1); CARBON DIOXIDE LEVEL 30 MMOL/L (20-31); CHLORIDE LEVEL 102 MMOL/L (98-107); CREATININE FOR GFR 0.78 MG/DL (0.70-1.30); GLOMERULAR FILTRATION RATE > 60.0 (>60); GLUCOSE, FASTING 170 MG/DL (60-100); POTASSIUM SERUM 4.6 MMOL/L (3.5-5.1); SODIUM LEVEL 138 MMOL/L (136-145); TOTAL PROTEIN 6.8 G/DL (5.7-8.2)
== END ==
LOC: M LAB 08:33
PROVIDERS: ATTEND Physician Assistant
DX: E11.65 Type 2 diabetes mellitus with hyperglycemia (principal)

== ENCOUNTER → 2022-11-09 | Outpatient (REF) | payer OTHER ==
[2022-11-09 17:19] LABS: CHOLESTEROL RISK RATIO 3.68 (<5); HDL CHOLESTEROL 34.5 MG/DL (>40); LDL CHOLESTEROL 60.1 MG/DL (<100); NON-HDL-C 92.5 MG/DL
[2022-11-09 17:20] LABS: TOTAL 25(OH) VITAMIN D 29.2 NG/ML (20.0-100.0)
[2022-11-09 17:28] LABS: HEMOGLOBIN A1c 8.5 % (4.0-6.0)
[2022-11-09 18:51] LABS: HEMOGLOBIN 16.2 g/dl (13.5-17.5); MEAN CORPUSCULAR HEMOGLOBIN 30.9 pg (27.0-33.0); MEAN CORPUSCULAR HGB CONC 32.4 g/dl (32.0-36.5); MEAN CORPUSCULAR VOLUME 95.2 fl (80.0-96.0); PLATELET COUNT, AUTOMATED 322 10^3/uL (150-450); RED BLOOD COUNT 5.25 10^6/uL (4.30-6.10)
== END ==
LOC: M LAB REF 16:18
PROVIDERS: ATTEND Physician Assistant
DX: E11.65 Type 2 diabetes mellitus with hyperglycemia (principal); E55.9 Vitamin D deficiency, unspecified

== ENCOUNTER → 2022-11-17 | Outpatient (REF) | payer OTHER ==
[2022-11-17 18:47] LABS: GC DNA AMPLIFICATION NEGATIVE (NEGATIVE)
== END ==
LOC: M LAB REF 16:13
PROVIDERS: ATTEND Physician Assistant
DX: Z11.3 Encounter for screening for infections with a predominantly sexual mode of transmission (principal)

== ENCOUNTER → 2023-04-02 | Outpatient (CLI) | payer OTHER ==
[~2023-04-02] MED LIST changes: +ACET1TAB55 PO; -ASPI81TA26; +ASPI81TA26 PO; -ATOR1TAB21; +ATOR1TAB21 PO; +CEFD300CAP PO; +COLA100C5 PO; +D 101000 PO; +FLUC200T4 PO; +FLUT1BLS6 IH; +GLIP5TAB8 PO; -LISI10TA22; +LISI10TA22 PO; +MAGN400T2 PO; +PROB250C PO; +TRAM50TA2 PO
== END ==
LOC: M RAD 13:54
PROVIDERS: ATTEND Physician Assistant
DX: N49.3 Fournier gangrene (principal); N28.89 Other specified disorders of kidney and ureter; N50.89 Other specified disorders of the male genital organs

== ENCOUNTER → 2023-07-09 | Outpatient (REF) | payer OTHER ==
[~2023-07-09] MED LIST changes: +GLIP5TAB17 PO; -GLIP5TAB8 PO
[2023-07-09 22:08] LABS: AMORPHOUS SEDIMENT SMALL (NEGATIVE); APPEARANCE, URINE TURBID (CLEAR); BACTERIA, URINE AUTO 1+ (NEGATIVE); BILIRUBIN, URINE AUTO NEGATIVE (NEGATIVE); BLOOD, URINE BLOOD 3+ (NEGATIVE); COLOR, URINE YELLOW (YELLOW); GLUCOSE, URINE (UA) AUTO 2+ mg/dL (NEGATIVE); KETONE, URINE AUTO NEGATIVE (NEGATIVE); LEUKOCYTE ESTERASE, URINE AUTO 2+ (NEGATIVE); MUCUS, URINE SMALL (NEGATIVE); NITRITE, URINE AUTO POSITIVE (NEGATIVE); PROTEIN, URINE AUTO 3+ mg/dL (NEGATIVE); RBC, URINE AUTO 34 /HPF (0-3); SPECIFIC GRAVITY URINE AUTO 1.026 (1.002-1.035); SQUAMOUS EPITHELIAL CELL UR AU 0 /HPF (0-6); TRIPLE PHOSPHATE CRYSTALS SMALL; UROBILINOGEN, URINE AUTO 0.2 mg/dL (0.0-2.0); WBC, URINE AUTO 56 /HPF (0-3)
== END ==
LOC: M LAB REF 21:38
PROVIDERS: ATTEND Physician Assistant
DX: N39.0 Urinary tract infection, site not specified (principal)

== ENCOUNTER → 2023-08-10 | Outpatient (REF) | payer OTHER ==
[2023-08-10 22:48] LABS: APPEARANCE, URINE CLOUDY (CLEAR); BACTERIA, URINE AUTO NEGATIVE (NEGATIVE); BILIRUBIN, URINE AUTO NEGATIVE (NEGATIVE); BLOOD, URINE BLOOD 2+ (NEGATIVE); COLOR, URINE YELLOW (YELLOW); GLUCOSE, URINE (UA) AUTO NEGATIVE (NEGATIVE); KETONE, URINE AUTO NEGATIVE (NEGATIVE); LEUKOCYTE ESTERASE, URINE AUTO 3+ (NEGATIVE); MUCUS, URINE SMALL (NEGATIVE); NITRITE, URINE AUTO NEGATIVE (NEGATIVE); PROTEIN, URINE AUTO 2+ mg/dL (NEGATIVE); RBC, URINE AUTO 32 /HPF (0-3); SPECIFIC GRAVITY URINE AUTO 1.011 (1.002-1.035); SQUAMOUS EPITHELIAL CELL UR AU 1 /HPF (0-6); UROBILINOGEN, URINE AUTO 0.2 mg/dL (0.0-2.0); WBC, URINE AUTO TNTC /HPF (0-3)
== END ==
LOC: M LAB REF 22:15
PROVIDERS: ATTEND Physician Assistant
DX: N39.0 Urinary tract infection, site not specified (principal)

== ENCOUNTER → 2023-09-26 | Outpatient (REF) | payer OTHER ==
[2023-09-26 21:56] LABS: APPEARANCE, URINE CLOUDY (CLEAR); BACTERIA, URINE AUTO NEGATIVE (NEGATIVE); BILIRUBIN, URINE AUTO NEGATIVE (NEGATIVE); BLOOD, URINE BLOOD 1+ (NEGATIVE); COLOR, URINE AMBER (YELLOW); GLUCOSE, URINE (UA) AUTO NEGATIVE (NEGATIVE); KETONE, URINE AUTO TRACE mg/dL (NEGATIVE); LEUKOCYTE ESTERASE, URINE AUTO 3+ (NEGATIVE); MUCUS, URINE SMALL (NEGATIVE); NITRITE, URINE AUTO NEGATIVE (NEGATIVE); PROTEIN, URINE AUTO 2+ mg/dL (NEGATIVE); RBC, URINE AUTO 57 /HPF (0-3); SPECIFIC GRAVITY URINE AUTO 1.028 (1.002-1.035); SQUAMOUS EPITHELIAL CELL UR AU 3 /HPF (0-6); WBC, URINE AUTO TNTC /HPF (0-3)
== END ==
LOC: M LAB REF 21:05
PROVIDERS: ATTEND Physician Assistant
DX: N39.0 Urinary tract infection, site not specified (principal)

== ENCOUNTER → 2023-10-31 | Outpatient (REF) | payer OTHER ==
[2023-10-31 17:27] LABS: APPEARANCE, URINE CLOUDY (CLEAR); BACTERIA, URINE AUTO 2+ (NEGATIVE); BILIRUBIN, URINE AUTO NEGATIVE (NEGATIVE); BLOOD, URINE BLOOD 1+ (NEGATIVE); COLOR, URINE AMBER (YELLOW); GLUCOSE, URINE (UA) AUTO NEGATIVE (NEGATIVE); KETONE, URINE AUTO NEGATIVE (NEGATIVE); LEUKOCYTE ESTERASE, URINE AUTO 2+ (NEGATIVE); MUCUS, URINE SMALL (NEGATIVE); NITRITE, URINE AUTO POSITIVE (NEGATIVE); PROTEIN, URINE AUTO 2+ mg/dL (NEGATIVE); RBC, URINE AUTO 47 /HPF (0-3); SPECIFIC GRAVITY URINE AUTO 1.019 (1.002-1.035); SQUAMOUS EPITHELIAL CELL UR AU 2 /HPF (0-6); UROBILINOGEN, URINE AUTO 0.2 mg/dL (0.0-2.0); WBC, URINE AUTO TNTC /HPF (0-3)
== END ==
LOC: M LAB REF 16:12
PROVIDERS: ATTEND Physician Assistant
DX: N39.0 Urinary tract infection, site not specified (principal)

== ENCOUNTER → 2023-11-02 | Outpatient (CLI) | payer OTHER ==
[2023-11-02 11:13] LABS: CREATININE, URINE 160.3 MG/DL; CREATININE,RANDOM URINE 160.3 MG/DL
[2023-11-02 11:30] LABS: MAU/CREAT RATIO 492.2 MCG/MG (0.0-30.0)
[2023-11-02 11:41] LABS: ALBUMIN 3.4 G/DL (3.2-5.2); ALKALINE PHOSPHATASE 102 U/L (46-116); ALT/SGPT 14 U/L (7.0-40); AST/SGOT 8 U/L (<34); BILIRUBIN,TOTAL 0.6 MG/DL (0.3-1.2); BLOOD UREA NITROGEN 12 MG/DL (9-23); CALCIUM LEVEL 8.8 MG/DL (8.5-10.1); CARBON DIOXIDE LEVEL 32 MMOL/L (20-31); CHLORIDE LEVEL 104 MMOL/L (98-107); CREATININE FOR GFR 0.79 MG/DL (0.70-1.30); GLOMERULAR FILTRATION RATE > 60.0 (>56); GLUCOSE, FASTING 146 MG/DL (60-100); POTASSIUM SERUM 4.1 MMOL/L (3.5-5.1); SODIUM LEVEL 139 MMOL/L (136-145); TOTAL PROTEIN 6.4 G/DL (5.7-8.2)
== END ==
LOC: M LAB 09:37
PROVIDERS: ATTEND Physician Assistant
DX: E11.65 Type 2 diabetes mellitus with hyperglycemia (principal)

== ENCOUNTER → 2023-11-15 | Outpatient (REF) | payer OTHER ==
[2023-11-15 17:27] LABS: CREATININE, URINE 103.8 MG/DL
[2023-11-15 17:28] LABS: MAU/CREAT RATIO 284.2 MCG/MG (0.0-30.0)
== END ==
LOC: M LAB REF 16:27
PROVIDERS: ATTEND Physician Assistant
DX: E11.65 Type 2 diabetes mellitus with hyperglycemia (principal); R30.0 Dysuria; N21.0 Calculus in bladder; R35.0 Frequency of micturition

== ENCOUNTER → 2024-01-15 | Outpatient (CLI) | payer OTHER | LOC: M RAD 10:36 | PROVIDERS: ATTEND Physician Assistant | DX: N21.0 Calculus in bladder (principal); R31.0 Gross hematuria; N13.30 Unspecified hydronephrosis ==

== ENCOUNTER → 2024-02-06 | Outpatient (CLI) | payer OTHER ==
[2024-02-06 09:57] LABS: BASO # 0.1 10^3/uL (0.0-0.2); BASO % 0.7 % (0.0-1.0); EOS # 0.3 10^3/uL (0.0-0.5); EOS % 3.5 % (0.0-3.0); HEMATOCRIT 48.3 % (42.0-52.0); HEMOGLOBIN 15.6 g/dl (13.5-17.5); LYMPH # 2.5 10^3/uL (1.5-5.0); LYMPH % 27.8 % (24.0-44.0); MEAN CORPUSCULAR HEMOGLOBIN 30.3 pg (27.0-33.0); MEAN CORPUSCULAR HGB CONC 32.3 g/dl (32.0-36.5); MEAN CORPUSCULAR VOLUME 93.8 fl (80.0-96.0); MONO # 0.8 10^3/uL (0.0-0.8); NEUTROPHILS # 5.3 10^3/uL (1.5-8.5); NEUTROPHILS % 58.6 % (36.0-66.0); PLATELET COUNT, AUTOMATED 279 10^3/uL (150-450); RED BLOOD COUNT 5.15 10^6/uL (4.30-6.10)
[2024-02-06 10:30] LABS: HEMOGLOBIN A1c 7.8 % (4.0-6.0)
[2024-02-06 10:33] LABS: ALBUMIN 3.5 G/DL (3.2-5.2); ALKALINE PHOSPHATASE 132 U/L (46-116); ALT/SGPT 18 U/L (7.0-40); AST/SGOT < 8 U/L (<34); BILIRUBIN,TOTAL 0.5 MG/DL (0.3-1.2); BLOOD UREA NITROGEN 14 MG/DL (9-23); CALCIUM LEVEL 8.8 MG/DL (8.5-10.1); CARBON DIOXIDE LEVEL 30 MMOL/L (20-31); CHLORIDE LEVEL 104 MMOL/L (98-107); CREATININE FOR GFR 0.73 MG/DL (0.70-1.30); GLOMERULAR FILTRATION RATE > 60.0 (>56); GLUCOSE, FASTING 160 MG/DL (60-100); MAGNESIUM LEVEL 1.8 MG/DL (1.8-2.4); POTASSIUM SERUM 4.3 MMOL/L (3.5-5.1); SODIUM LEVEL 137 MMOL/L (136-145); TOTAL PROTEIN 6.2 G/DL (5.7-8.2)
[2024-02-06 10:34] LABS: THYROID STIMULATING HORMONE 1.403 uIU/ML (0.55-4.78); TOTAL 25(OH) VITAMIN D 40.9 NG/ML (20.0-100.0)
== END ==
LOC: M LAB 08:40
PROVIDERS: ATTEND Nurse Practitioner Psychiatric/Mental Health
DX: F43.20 Adjustment disorder, unspecified (principal)

== ENCOUNTER → 2024-02-11 | Outpatient (CLI) | payer OTHER | LOC: M RAD 13:50 | PROVIDERS: ATTEND Physician Assistant | DX: N21.0 Calculus in bladder (principal) ==

== ENCOUNTER → 2024-02-14 | Outpatient (REF) | payer OTHER | LOC: M LAB REF 16:07 | PROVIDERS: ATTEND Physician Assistant | DX: J02.9 Acute pharyngitis, unspecified (principal) ==

== ENCOUNTER → 2024-02-19 | Outpatient (REF) | payer OTHER ==
[2024-02-19 14:06] LABS: APPEARANCE, URINE CLOUDY (CLEAR); BACTERIA, URINE AUTO 1+ (NEGATIVE); BILIRUBIN, URINE AUTO NEGATIVE (NEGATIVE); BLOOD, URINE BLOOD 2+ (NEGATIVE); COLOR, URINE YELLOW (YELLOW); GLUCOSE, URINE (UA) AUTO 3+ mg/dL (NEGATIVE); KETONE, URINE AUTO NEGATIVE (NEGATIVE); LEUKOCYTE ESTERASE, URINE AUTO 3+ (NEGATIVE); MUCUS, URINE SMALL (NEGATIVE); NITRITE, URINE AUTO NEGATIVE (NEGATIVE); PROTEIN, URINE AUTO 1+ mg/dL (NEGATIVE); RBC, URINE AUTO 34 /HPF (0-3); SPECIFIC GRAVITY URINE AUTO 1.023 (1.002-1.035); SQUAMOUS EPITHELIAL CELL UR AU 1 /HPF (0-6); TRANSITIONAL EPITHELIAL AUTO 2 /HPF; UROBILINOGEN, URINE AUTO 0.2 mg/dL (0.0-2.0); WBC, URINE AUTO TNTC /HPF (0-3)
== END ==
LOC: M LAB REF 12:33
PROVIDERS: ATTEND Physician Assistant
DX: N39.0 Urinary tract infection, site not specified (principal)

== ENCOUNTER → 2024-03-15 | Outpatient (REF) | payer OTHER ==
[2024-03-15 18:35] LABS: APPEARANCE, URINE CLOUDY (CLEAR); BACTERIA, URINE AUTO NEGATIVE (NEGATIVE); BILIRUBIN, URINE AUTO NEGATIVE (NEGATIVE); BLOOD, URINE BLOOD 2+ (NEGATIVE); COLOR, URINE YELLOW (YELLOW); GLUCOSE, URINE (UA) AUTO 3+ mg/dL (NEGATIVE); KETONE, URINE AUTO NEGATIVE (NEGATIVE); LEUKOCYTE ESTERASE, URINE AUTO 3+ (NEGATIVE); MUCUS, URINE SMALL (NEGATIVE); NITRITE, URINE AUTO NEGATIVE (NEGATIVE); PROTEIN, URINE AUTO 2+ mg/dL (NEGATIVE); RBC, URINE AUTO 129 /HPF (0-3); SPECIFIC GRAVITY URINE AUTO 1.031 (1.002-1.035); SQUAMOUS EPITHELIAL CELL UR AU 1 /HPF (0-6); UROBILINOGEN, URINE AUTO 0.2 mg/dL (0.0-2.0); WBC, URINE AUTO TNTC /HPF (0-3)
== END ==
LOC: M LAB REF 18:07
PROVIDERS: ATTEND Physician Assistant Medical
DX: N39.0 Urinary tract infection, site not specified (principal)

== ENCOUNTER → 2024-05-16 | Outpatient (REF) | payer OTHER ==
[2024-05-16 18:59] LABS: APPEARANCE, URINE TURBID (CLEAR); BACTERIA, URINE AUTO NEGATIVE (NEGATIVE); BILIRUBIN, URINE AUTO NEGATIVE (NEGATIVE); BLOOD, URINE BLOOD 2+ (NEGATIVE); COLOR, URINE YELLOW (YELLOW); GLUCOSE, URINE (UA) AUTO 3+ mg/dL (NEGATIVE); KETONE, URINE AUTO TRACE mg/dL (NEGATIVE); LEUKOCYTE ESTERASE, URINE AUTO 3+ (NEGATIVE); NITRITE, URINE AUTO NEGATIVE (NEGATIVE); PROTEIN, URINE AUTO 2+ mg/dL (NEGATIVE); RBC, URINE AUTO 148 /HPF (0-3); SPECIFIC GRAVITY URINE AUTO 1.027 (1.002-1.035); SQUAMOUS EPITHELIAL CELL UR AU 4 /HPF (0-6); UROBILINOGEN, URINE AUTO 0.2 mg/dL (0.0-2.0); WBC, URINE AUTO TNTC /HPF (0-3)
== END ==
LOC: M LAB REF 18:02
PROVIDERS: ATTEND Physician Assistant Medical
DX: N39.0 Urinary tract infection, site not specified (principal)

== ENCOUNTER → 2024-05-22 | Outpatient (REF) | payer OTHER | LOC: M LAB REF 16:17 | PROVIDERS: ATTEND Physician Assistant | DX: I10 Essential (primary) hypertension (principal); R30.0 Dysuria ==

== ENCOUNTER → 2024-06-12 | Outpatient (REF) | payer OTHER ==
[~2024-06-12] MED LIST changes: +FLUC-1 PO; -FLUC200T4 PO
[2024-06-12 17:38] LABS: APPEARANCE, URINE TURBID (CLEAR); BACTERIA, URINE AUTO 2+ (NEGATIVE); BILIRUBIN, URINE AUTO NEGATIVE (NEGATIVE); BLOOD, URINE BLOOD 2+ (NEGATIVE); COLOR, URINE YELLOW (YELLOW); GLUCOSE, URINE (UA) AUTO 3+ mg/dL (NEGATIVE); KETONE, URINE AUTO TRACE mg/dL (NEGATIVE); LEUKOCYTE ESTERASE, URINE AUTO 3+ (NEGATIVE); MUCUS, URINE SMALL (NEGATIVE); NITRITE, URINE AUTO NEGATIVE (NEGATIVE); PROTEIN, URINE AUTO 2+ mg/dL (NEGATIVE); RBC, URINE AUTO 57 /HPF (0-3); SQUAMOUS EPITHELIAL CELL UR AU 2 /HPF (0-6); UROBILINOGEN, URINE AUTO 0.2 mg/dL (0.0-2.0); WBC, URINE AUTO TNTC /HPF (0-3)
[2024-06-12 19:30] LABS: Trichomonas vaginalis (AMP) NOT DETECTED (NEGATIVE)
[2024-06-12 19:53] LABS: GC DNA AMPLIFICATION NEGATIVE (NEGATIVE)
== END ==
LOC: M LAB REF 16:46
PROVIDERS: ATTEND Physician Assistant
DX: N39.0 Urinary tract infection, site not specified (principal)

== ENCOUNTER 2024-07-02 12:24 | Emergency (ER) | payer OTHER ==
[~2024-07-02] VITALS: Ht 165.1 cm; Wt 95.2 kg
[2024-07-02 12:31] VITALS: BP 140/69; TEMP 101.2; O2SAT 94
[2024-07-02] MEDS ORDERED: CEFU1TAB22 (12:43)
[2024-07-02] MEDS ORDERED: ALBU8.5H (12:43)
== END 2024-07-02 15:19 | disposition left against medical advice (07) ==
LOC: M ED 12:24
DX: Z53.21 Procedure and treatment not carried out due to patient leaving prior to being seen by health care provider (principal)

== ENCOUNTER → 2024-07-14 | Outpatient (REF) | payer OTHER ==
[~2024-07-14] MED LIST changes: +ALBU8.5H; +CEFU1TAB22
== END ==
LOC: M SMT 12:36
PROVIDERS: ATTEND Physician Assistant
DX: N49.2 Inflammatory disorders of scrotum (principal)

== ENCOUNTER → 2024-10-23 | Outpatient (REF) | payer OTHER | LOC: M SMT 16:49 | PROVIDERS: ATTEND Physician Assistant | DX: N49.2 Inflammatory disorders of scrotum (principal) ==

== ENCOUNTER → 2024-10-31 | Outpatient (REF) | payer OTHER ==
[2024-10-31 19:25] LABS: ALBUMIN 3.3 G/DL (3.2-5.2); ALKALINE PHOSPHATASE 139 U/L (40-129); ALT/SGPT 9 U/L (7.0-40); AST/SGOT < 8 U/L (<34); BILIRUBIN,TOTAL 0.4 MG/DL (0.3-1.2); BLOOD UREA NITROGEN 11 MG/DL (9-23); CALCIUM LEVEL 9.7 MG/DL (8.5-10.1); CARBON DIOXIDE LEVEL 28 MMOL/L (20-31); CHLORIDE LEVEL 100 MMOL/L (98-107); CHOLESTEROL LEVEL 151 MG/DL (<200); CHOLESTEROL RISK RATIO 4.68 (<5); CREATININE FOR GFR 0.67 MG/DL (0.70-1.30); GLOMERULAR FILTRATION RATE > 60.0 (>56); GLUCOSE, FASTING 121 MG/DL (60-100); HDL CHOLESTEROL 32.2 MG/DL (>40); LDL CHOLESTEROL 82.8 MG/DL (<100); NON-HDL-C 118.8 MG/DL; POTASSIUM SERUM 4.7 MMOL/L (3.5-5.1); SODIUM LEVEL 137 MMOL/L (136-145); TOTAL PROTEIN 7.7 G/DL (5.7-8.2); TRIGLYCERIDES LEVEL 180 MG/DL (<150)
[2024-10-31 19:29] LABS: THYROID STIMULATING HORMONE 1.386 uIU/ML (0.55-4.78); TOTAL 25(OH) VITAMIN D 39.9 NG/ML (20.0-100.0)
[2024-10-31 19:50] LABS: HEMOGLOBIN A1c 7.2 % (4.0-6.0)
== END ==
LOC: M LAB REF 17:37
PROVIDERS: ATTEND Physician Assistant
DX: I10 Essential (primary) hypertension (principal); E11.65 Type 2 diabetes mellitus with hyperglycemia; E55.9 Vitamin D deficiency, unspecified

== ENCOUNTER → 2024-12-23 | Outpatient (CLI) | payer OTHER | LOC: M PLAIMG 08:41 | PROVIDERS: ATTEND Physician Assistant | DX: N21.0 Calculus in bladder (principal); N28.9 Disorder of kidney and ureter, unspecified ==

== ENCOUNTER → 2025-02-10 | Outpatient (REF) | payer OTHER ==
[2025-02-10 22:07] LABS: APPEARANCE, URINE TURBID (CLEAR); BACTERIA, URINE AUTO NEGATIVE (NEGATIVE); BILIRUBIN, URINE AUTO NEGATIVE (NEGATIVE); BLOOD, URINE BLOOD 2+ (NEGATIVE); GLUCOSE, URINE (UA) AUTO 3+ mg/dL (NEGATIVE); KETONE, URINE AUTO NEGATIVE (NEGATIVE); LEUKOCYTE ESTERASE, URINE AUTO 2+ (NEGATIVE); NITRITE, URINE AUTO NEGATIVE (NEGATIVE); PROTEIN, URINE AUTO 2+ mg/dL (NEGATIVE); RBC, URINE AUTO TNTC /HPF (0-3); SPECIFIC GRAVITY URINE AUTO 1.026 (1.002-1.035); SQUAMOUS EPITHELIAL CELL UR AU 4 /HPF (0-6); UROBILINOGEN, URINE AUTO 0.2 mg/dL (0.0-2.0); WBC, URINE AUTO TNTC /HPF (0-3)
== END ==
LOC: M LAB REF 21:27
PROVIDERS: ATTEND Physician Assistant Medical
DX: N39.0 Urinary tract infection, site not specified (principal)

== ENCOUNTER → 2025-02-27 | Outpatient (CLI) | payer OTHER ==
[~2025-02-27] MED LIST changes: +TREL1AER IN; +[UNRECOGNIZED DRUG - CODE] PO
[2025-02-27 11:52] LABS: APPEARANCE, URINE CLOUDY (CLEAR); BACTERIA, URINE AUTO NEGATIVE (NEGATIVE); BILIRUBIN, URINE AUTO NEGATIVE (NEGATIVE); BLOOD, URINE BLOOD 2+ (NEGATIVE); GLUCOSE, URINE (UA) AUTO 3+ mg/dL (NEGATIVE); KETONE, URINE AUTO NEGATIVE (NEGATIVE); LEUKOCYTE ESTERASE, URINE AUTO 3+ (NEGATIVE); NITRITE, URINE AUTO NEGATIVE (NEGATIVE); PROTEIN, URINE AUTO 1+ mg/dL (NEGATIVE); RBC, URINE AUTO 86 /HPF (0-3); SPECIFIC GRAVITY URINE AUTO 1.016 (1.002-1.035); SQUAMOUS EPITHELIAL CELL UR AU 2 /HPF (0-6); UROBILINOGEN, URINE AUTO 0.2 mg/dL (0.0-2.0); WBC, URINE AUTO TNTC /HPF (0-3); YEAST LIKE CELL URINE AUTO LARGE
== END ==
LOC: M LAB 10:29
PROVIDERS: ATTEND Physician Assistant
DX: Z01.818 Encounter for other preprocedural examination (principal)

== ENCOUNTER → 2025-03-25 | Outpatient (REF) | payer OTHER ==
[2025-03-25 14:14] LABS: APPEARANCE, URINE TURBID (CLEAR); BACTERIA, URINE AUTO NEGATIVE (NEGATIVE); BILIRUBIN, URINE AUTO NEGATIVE (NEGATIVE); BLOOD, URINE BLOOD 2+ (NEGATIVE); GLUCOSE, URINE (UA) AUTO 3+ mg/dL (NEGATIVE); KETONE, URINE AUTO TRACE mg/dL (NEGATIVE); LEUKOCYTE ESTERASE, URINE AUTO 3+ (NEGATIVE); NITRITE, URINE AUTO NEGATIVE (NEGATIVE); PROTEIN, URINE AUTO 2+ mg/dL (NEGATIVE); RBC, URINE AUTO 120 /HPF (0-3); SPECIFIC GRAVITY URINE AUTO 1.032 (1.002-1.035); SQUAMOUS EPITHELIAL CELL UR AU 2 /HPF (0-6); UROBILINOGEN, URINE AUTO 0.2 mg/dL (0.0-2.0); WBC, URINE AUTO TNTC /HPF (0-3); YEAST LIKE CELL URINE AUTO LARGE
== END ==
LOC: M SMT 13:13
PROVIDERS: ATTEND Physician Assistant
DX: N21.0 Calculus in bladder (principal)

== ENCOUNTER → 2025-04-17 | Outpatient (REF) | payer OTHER ==
[~2025-04-17] MED LIST changes: -IBUP-1022 PO; +IBUP600T42 PO
[2025-04-17 12:05] LABS: APPEARANCE, URINE TURBID (CLEAR); BACTERIA, URINE AUTO 2+ (NEGATIVE); BILIRUBIN, URINE AUTO NEGATIVE (NEGATIVE); BLOOD, URINE BLOOD 3+ (NEGATIVE); GLUCOSE, URINE (UA) AUTO 3+ mg/dL (NEGATIVE); KETONE, URINE AUTO NEGATIVE (NEGATIVE); LEUKOCYTE ESTERASE, URINE AUTO 2+ (NEGATIVE); NITRITE, URINE AUTO POSITIVE (NEGATIVE); PROTEIN, URINE AUTO 2+ mg/dL (NEGATIVE); RBC, URINE AUTO TNTC /HPF (0-3); SPECIFIC GRAVITY URINE AUTO 1.025 (1.002-1.035); SQUAMOUS EPITHELIAL CELL UR AU 10 /HPF (0-6); UROBILINOGEN, URINE AUTO 0.2 mg/dL (0.0-2.0); WBC, URINE AUTO TNTC /HPF (0-3); YEAST LIKE CELL URINE AUTO LARGE
== END ==
LOC: M SMT 10:00
PROVIDERS: ATTEND Physician Assistant
DX: Z01.818 Encounter for other preprocedural examination (principal)

== ENCOUNTER → 2025-04-24 | Outpatient (REF) | payer OTHER ==
[~2025-04-24] MED LIST changes: +HYDR-3713 PO; +LEVO1TAB39 PO
[2025-04-24 14:06] LABS: CREATININE, URINE 106.5 MG/DL; MALB URINE SIEMENS 159.0 MG/L; MAU/CREAT RATIO 149.2 MCG/MG (0.0-30.0)
[2025-04-24 16:28] LABS: ALT/SGPT 12 U/L (7.0-40); AST/SGOT 11 U/L (<34); CALCIUM LEVEL 9.2 MG/DL (8.5-10.1); CARBON DIOXIDE LEVEL 28 MMOL/L (20-31); CHLORIDE LEVEL 103 MMOL/L (98-107); CHOLESTEROL LEVEL 151 MG/DL (<200); CHOLESTEROL RISK RATIO 3.98 (<5); CREATININE FOR GFR 0.67 MG/DL (0.70-1.30); GLOMERULAR FILTRATION RATE > 90.0 (>56); LDL CHOLESTEROL 88.9 MG/DL (<100); NON-HDL-C 113.1 MG/DL; POTASSIUM SERUM 4.8 MMOL/L (3.5-5.1); SODIUM LEVEL 139 MMOL/L (136-145); TRIGLYCERIDES LEVEL 121 MG/DL (<150)
[2025-04-24 16:30] LABS: TOTAL 25(OH) VITAMIN D 39.2 NG/ML (20.0-100.0)
[2025-04-24 16:36] LABS: APPEARANCE, URINE CLOUDY (CLEAR); BACTERIA, URINE AUTO NEGATIVE (NEGATIVE); BILIRUBIN, URINE AUTO NEGATIVE (NEGATIVE); BLOOD, URINE BLOOD 1+ (NEGATIVE); GLUCOSE, URINE (UA) AUTO 3+ mg/dL (NEGATIVE); KETONE, URINE AUTO NEGATIVE (NEGATIVE); LEUKOCYTE ESTERASE, URINE AUTO 2+ (NEGATIVE); MUCUS, URINE SMALL (NEGATIVE); NITRITE, URINE AUTO NEGATIVE (NEGATIVE); PROTEIN, URINE AUTO 2+ mg/dL (NEGATIVE); RBC, URINE AUTO 32 /HPF (0-3); SPECIFIC GRAVITY URINE AUTO 1.028 (1.002-1.035); SQUAMOUS EPITHELIAL CELL UR AU 6 /HPF (0-6); UROBILINOGEN, URINE AUTO 0.2 mg/dL (0.0-2.0); WBC, URINE AUTO TNTC /HPF (0-3); YEAST LIKE CELL URINE AUTO LARGE
[2025-04-24 16:44] LABS: ESTIMATED AVERAGE GLUCOSE 154.0 MG/DL (60-110)
== END ==
LOC: M LAB REF 12:29
PROVIDERS: ATTEND Physician Assistant
DX: I10 Essential (primary) hypertension (principal); E55.9 Vitamin D deficiency, unspecified; E11.65 Type 2 diabetes mellitus with hyperglycemia; E78.5 Hyperlipidemia, unspecified

== ENCOUNTER → 2025-05-09 | Outpatient (REF) | payer OTHER | LOC: M LAB REF 17:13 | DX: B34.9 Viral infection, unspecified (principal) ==

== ENCOUNTER → 2025-05-22 | Outpatient (CLI) | payer OTHER ==
[2025-05-22 11:43] LABS: PLATELET COUNT, AUTOMATED 572 10^3/uL (150-450)
[2025-05-22 11:51] LABS: AMORPHOUS SEDIMENT SMALL (NEGATIVE); APPEARANCE, URINE TURBID (CLEAR); BACTERIA, URINE AUTO 2+ (NEGATIVE); BILIRUBIN, URINE AUTO NEGATIVE (NEGATIVE); BLOOD, URINE BLOOD 2+ (NEGATIVE); GLUCOSE, URINE (UA) AUTO 3+ mg/dL (NEGATIVE); KETONE, URINE AUTO NEGATIVE (NEGATIVE); LEUKOCYTE ESTERASE, URINE AUTO 2+ (NEGATIVE); NITRITE, URINE AUTO NEGATIVE (NEGATIVE); PROTEIN, URINE AUTO 2+ mg/dL (NEGATIVE); RBC, URINE AUTO 84 /HPF (0-3); SPECIFIC GRAVITY URINE AUTO 1.030 (1.002-1.035); SQUAMOUS EPITHELIAL CELL UR AU 7 /HPF (0-6); UROBILINOGEN, URINE AUTO 0.2 mg/dL (0.0-2.0); WBC, URINE AUTO TNTC /HPF (0-3); YEAST LIKE CELL URINE AUTO LARGE
[2025-05-22 12:06] LABS: CALCIUM LEVEL 8.6 MG/DL (8.5-10.1); CARBON DIOXIDE LEVEL 30 MMOL/L (20-31); CHLORIDE LEVEL 102 MMOL/L (98-107); CREATININE FOR GFR 0.61 MG/DL (0.70-1.30); GLOMERULAR FILTRATION RATE > 90.0 (>56); POTASSIUM SERUM 4.5 MMOL/L (3.5-5.1); SODIUM LEVEL 140 MMOL/L (136-145)
== END ==
LOC: M LAB 09:57
PROVIDERS: ATTEND Urology
DX: Z01.818 Encounter for other preprocedural examination (principal); R94.31 Abnormal electrocardiogram [ECG] [EKG]

== ENCOUNTER → 2025-06-03 | Outpatient (REF) | payer OTHER | LOC: M LAB REF 12:17 | PROVIDERS: ATTEND Physician Assistant | DX: R05.8 Other specified cough (principal) ==

== ENCOUNTER → 2025-06-08 | Outpatient (CLI) | payer OTHER | LOC: M RAD 09:28 | PROVIDERS: ATTEND Physician Assistant | DX: R05.8 Other specified cough (principal) ==